=== PATIENT | male | born 1935 | race Caucasian/White ===

== ENCOUNTER → 2017-07-09 09:40 | Outpatient (CLI) | payer MEDICARE, OTHER, SELFPAY ==
[2017-07-09 10:59] LABS: PSA,Total - Annual Screen 1.31 ng/mL (0.00-4.00)
== END ==
PROVIDERS: Family Provider Family Medicine; PCP Family Medicine; Visit Provider Urology
DX: Z12.5 Encounter for screening for malignant neoplasm of prostate (principal)
CPT/HCPCS: 36415; 84153; G0103

== ENCOUNTER → 2018-02-20 12:51 | Outpatient (CLI) | payer MEDICARE, OTHER, SELFPAY ==
[2018-01-27 12:35] VITALS: BMI 28.3
--- NOTE | 2018-02-20 14:22 | PFTCOMP_ITS ---
COMPLETE PULMONARY FUNCTION TEST INTERPRETATION Brief HPI: Patient is an 82 year old male, currently under the care of myself, who presents to [facility] for complete pulmonary function tests secondary to diagnosis of cough. Respiratory therapist reports good effort and reproducible results. Interpretation: Forced expiration spirometry shows a mild large airways obstructive ventilatory defect with an FEV1 of 85% predicted. There is no significant bronchodilator response by strict ATS criteria. Spirograms are of good quality and plateau slowly, indicating slowly emptying areas of the lungs. The respiratory flow volume loop shows decreased expiratory flow rates at all lung volumes consistent with airway obstruction. Lung volumes by body plethysmography show a normal total lung capacity at 7.26 L, 103% predicted. All other lung volumes are within normal limits. Diffusion capacity by carbon monoxide is normal at 104% predicted. The airway resistance is normal. No previous pulmonary function tests were available for review. Impression: Irreversible mild large airways obstructive ventilatory defect with preserved diffusion capacity
--- OUTSIDE RECORDS SUMMARY | 2018-04-08 08:22 | XMS RPT_ITS ---
:1935 External Reference #:[id number] Author Organization OHIP Care Team Providers Name Role Phone FACUNDO DOBBINS (PA) Referring Unavailable AKUA ZEPEDA (ROOFER HELPER) Attending Unavailable FACUNDO DOBBINS (PA) Referring Unavailable VENECIA BAPTISTE (PT) Attending Unavailable SUMA ANTONIO Referring Unavailable SUMA ANTONIO Attending Unavailable SUMA ANTONIO Referring Unavailable SUMA ANTONIO Attending Unavailable SUMA ANTONIO Referring Unavailable Jay Fitch Attending Unavailable Jay Fitch Referring Unavailable Jay Fitch Attending Unavailable Suma Antonio Referring Unavailable Milo Lackey Attending Unavailable Milo Lackey Referring Unavailable Suma Antonio Primary Care Unavailable Jay Fitch Attending Unavailable Suma Antonio Referring Unavailable Jay Fitch Attending Unavailable Jay Fitch Referring Unavailable Suma Antonio Primary Care Unavailable PROBLEMS PROBLEMS DATE TYPE CONDITION / CODE ATTENDING STATUS SOURCE 03/27/2018 Unknown R05 - Cough / Jay Fitch Active [place] [facility] 01/28/2018 Active Encounter for NA Active [facility] medical Repository examination without abnormal findings / Z00.00(ICD-10) 12/07/2017 Active Encounter for NA Active [facility] immunization / [facility] Z23(ICD-10) Repository 06/07/2017 Active Unknown / NA Active [facility] UNK(Unknown) [facility] Repository PROCEDURES PROCEDURES No Procedure Records FoundRESULTS RESULTS PULMONARY VISIT REPORT Observed: 03/27/2018 Status: F Source: [place] 3:[address] [facility] REPOSITORY [facility] [place] [address] [place] [address] OFFICE VISIT Date of Service: 03/27/18 MR#: [id number] Acct: [id number] Name: EARL SINHA Rep #: [id number] : 1935 Provider: Jay Fitch MD Age/Sex: 82/M Location: [facility].PMW Status: Signed Assessment AND Plan Problems 1. Cough R05 Plan Patient's pulmonary function test did not qualify for asthma by strict ATS criteria, some improvement in small airways was noted. Clinical suspicion for a mild intermittent asthma leading to symptomatology. After review of the risks, benefits and alternatives, patient has elected to use conservative therapy. Did offer albuterol as needed, but patient was not interested. Will obtain a complete PFT in 1 year to ensure stability. Patient will call with signs or symptoms of exacerbation. PFT prior to next visit. Call with signs or symptoms of exacerbation. Orders Orders: HPI 2 M FU: Chief Complaint: Follow-up test results Details: Patient is an 82-year-old male, currently under the care of Dr. Antonio, who presents for evaluation secondary to recent test results. Since last visit, patient denies any ER visits, hospitalizations or prednisone burst. Patient did complete his prednisone that was prescribed at the previous visit and did not need to be reinitiated. Overall, patient feels subjectively improved compared to previous. Patient does report some sinus congestion over the last week or 2 that was responsive with Flonase therapy. Patient has decreased to 1 puff each nostril in the morning. Patient has noted some rhinorrhea in the evening, but this is not associated with cough. Patient denies any chest pain, abdominal pain, nausea or vomiting. Patient has not had any unintentional weight loss. Patient does not believe that he is experiencing any worsening dyspnea on exertion. Patient denies any difficulty with lying flat. Testing personally reviewed with the patient Complete PFT (02/20/2018): Irreversible mild large airways obstructive ventilatory defect (FVC 89%, FEV1 81%, TLC 103%, DLCO 104%) Intake Vital Signs03/27/18 Height 6 ft 3 in 03/27/18 Weight: 102.965 kg Intake Visit Reasons: 2 M FU Accompanied by: Self Allergies ipratropium Adverse Reaction (Mild, Verified 01/27/18 12:39) Hives Medications Aspirin 325 mg PO DAILY 04/16/13 [History Confirmed 01/24/18] Cholecalciferol (Vitamin D3) [Vitamin D3] 1,000 unit PO DAILY 04/16/13 [History Confirmed 01/24/18] Multivitamins,Therapeutic [Multivitamin] 1 tab PO DAILY 04/16/13 [History Confirmed 01/24/18] prednisone 10 mg tablet 10 mg PO .COMPLEX 01/27/18 [History Confirmed 01/27/18] [facility] Medical History Kidney stones (Acute) Lumbago (Acute) BPH (benign prostatic hyperplasia) (Chronic) Bladder neck obstruction (Chronic) Diverticulosis of colon (Chronic) Migraine without aura (Chronic) Obesity (Chronic) Osteoarthritis (Chronic) 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 (Chronic) Premature atrial contraction (Chronic) Restless leg syndrome (Chronic) Surgical History H/O adenoidectomy (Resolved) H/O arthroscopy of right knee (Resolved) H/O colonoscopy (Resolved) History of carpal tunnel release (Resolved) History of tonsillectomy (Resolved) History of total left hip replacement (Resolved) Right wrist fusion (Resolved) S/P TURP (Resolved) Family History Sister Breast cancer Social History Smoking Status: Never smoker alcohol intake: current alcohol intake frequency: 0-2 drinks per day Alcohol type: beer substance use type: does not use Review of Systems Const CONSTITUTIONAL: Negative anorexia, body ache, chills, daytime sleepiness, fever(s), night sweats, oral thrush, stops breathing during sleep, weight loss, sleeping in chair, fatigue, weight loss, weight gain, frequent colds, seasonal allergies, other, headache(s) or orthopnea EETM Ear Nose Throat Mouth: Positive hearing normal, nasal discharge and post nasal drip; negative hard of hearing, hoarseness, dry mouth in morning, change in vision, itchy eyes, eye pain, swallowing Difficulty, ear pain, nose bleed, headache(s), mouth pain, nasal congestion, sinus pain, sinus pressure, sore throat or other Cardio Cardiovascular: Negative chest pain, chest pain at rest, chest pain with activity, irregular heart rhythm, edema, shortness of breath when lying down, palpitations, murmur or other Resp Respiratory: Positive as per HPI; negative shortness of breath, pain with cough, wheezing, chest congestion, cough, chest tightness, pain on inspiration, inhalers, increase use of rescue inhalers, snoring, apnea or other Gastro Gastrointestional: Negative bloody stools, change in appetite, difficulty swallowing, reflux, hematemesis, melena stool, loose stool, constipation or other Genitourinary: Negative blood in urine, nocturia, pain with urination or other Musc Musculoskeletal: Negative body pain, back pain, neck pain or other Skin/Breast Skin/Breast: Negative dry skin, itching, rash, unusual bruising, breast lump or other Neuro Neurological: Negative restless legs, confusion, weakness or other Psych Psychocological: Negative abnormal sleep pattern, anxiety, thoughts of hurting self/others, hopelessness or other Lymph Lymphatic: Negative easy bleeding, easy bruising, swollen lymph nodes or other Exam Const Constitutional: Positive conversant, cooperative, in no acute respiratory distress, healthy appearing, well developed, well nourished and good hygiene; negative frail appearing, appears older than stated age, smells of smoke or wearing supplemental oxygen Head Head: Positive normocephalic and atraumatic; negative cyanosis of lips/distal nose, frontal sinus tenderness or maxillary sinus tenderness Eyes Eye: Positive clear conjunctiva; negative nystagmus, scleral abnormality or cataract present Ears Ear: Positive hearing normal and external ears normal; negative hard of hearing Nose Nose: Positive external nose normal, septum normal and clear nasal discharge; negative epistaxis or nasal polyp Mouth Mouth: Positive post nasal drip, oral mucosae normal, no lesions, oral thrush present and posterior oropharynx is adequate; negative malodorous breath Mallampati Score: II: Mallampati Score Neck Neck: Positive normal visual inspection, full ROM and trachea midline; negative lymphadenopathy or JVD Chest Wall Chest: Positive normal inspection of the chest and symmetric chest movement; negative crepitus or tenderness Resp lung sounds: Positive clear to auscultation, good air exchange, normal expiratory time and normal respiratory effort; negative wheezes, rhonchi, rales, use of accessory muscles, wheeze present on forced exhalation or dullness to percussion Cardio Cardiac: Positive regular rate, regular rhythm, S1 normal and S2 normal; negative murmur, rub or gallop GI GI: Positive normal to inspection and normal bowel sounds; negative distended, ascites or epigastric tenderness Genitourinary: Positive deferred Musc Musculoskeletal: Positive steady gait; negative using an assistive device for ambulation, kyphosis or scoliosis Skin Pulmonary Skin Exam: Positive intact; negative rash, lesion, ulcers, erythema or dermal atrophy Pulses Pulse: Yes radial pulses present Extremities Extremities: Yes capillary refill normal, No clubbing, No cyanosis, No edema Neuro Neurologic: Yes conversant Lymph Lymphatic: No lymphadenopathy Psych Appearance: Positive grossly normal Mental Status: Positive mental status grossly normal Mood: Positive congruent mood Affect: Positive normal affect Coding Level of Care Code Off vis,est,level 3 Diagnoses Cough R05 03/27/18 1531 <Electronically signed by Jay Fitch MD> Date Jay Fitch MD Cosigner Signature: Date (if applicable) CC: Suma Antonio MD PULMONARY FUNCTION Observed: 02/21/2018 Status: F Source: [place] REPORT COMP 6:[address] [facility] REPOSITORY [facility] Pulmonary Services/Neurology [address] [place] [address] MR#: [id number] Acct: [id number] Name: NAVYALLUVIA DORADOMARIYA Hyde Rep #: [id number] : 1935 82 From: Jay Fitch MD Referring Dr: Jay Fitch MD Status: REG CLI Ordering Dr: Date: Location: [facility] Sex: M C COMPLETE PULMONARY FUNCTION TEST INTERPRETATION Brief HPI: Patient is an 82 year old male, currently under the care of myself, who presents to [facility] for complete pulmonary function tests secondary to diagnosis of cough. Respiratory therapist reports good effort and reproducible results. Interpretation: Forced expiration spirometry shows a mild large airways obstructive ventilatory defect with an FEV1 of 85% predicted. There is no significant bronchodilator response by strict ATS criteria. Spirograms are of good quality and plateau slowly, indicating slowly emptying areas of the lungs. The respiratory flow volume loop shows decreased expiratory flow rates at all lung volumes consistent with airway obstruction. Lung volumes by body plethysmography show a normal total lung capacity at 7.26 L, 103% predicted. All other lung volumes are within normal limits. Diffusion capacity by carbon monoxide is normal at 104% predicted. The airway resistance is normal. No previous pulmonary function tests were available for review. Impression: Irreversible mild large airways obstructive ventilatory defect with preserved diffusion capacity 02/21/18 0602 <Electronically signed by Jay Fitch MD> Date Jay Fitch MD CC: Jay Fitch MD; Suma Antonio MD Date Dictated: 02/20/18 1420 Date Transcribed: 02/20/181419 Family Resource Management Professor: SNEHA Signed PROGRESS Observed: 02/04/2018 Status: COMPLETED Source: [place] 2:04 PM [facility] REPOSITORY [facility] ID: [id number] Author: Suma Antonio Service: (none) Author Type: Physician Type: Progress Notes Filed: 02/04/2018 3:05 PM Note Text: Medical B eligibilty date 11/09/2000 Date of last exam 01/27/15 Pt presents for Medicare Wellness exam and additional office visit for multiple concerns. PAST MEDICAL HISTORY Diagnosis Date - Bladder neck obstruction - BPH (benign prostatic hyperplasia) Seeing Dr. 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 Hernandez - PAST SURGICAL HISTORY OF Left 07/31/15 left total hip - REMOVAL ADENOIDS,PRIMARY,<12 Y/O Adenoidectomy - REMOVAL OF TONSILS,<12 Y/O Tonsillectomy - TRANSURETHRAL ELEC-SURG PROSTATECTOM 05/2005 TURP Ipratropium [place] Current Outpatient Prescriptions: Cholecalciferol, Vitamin D3, 1,000 unit cap Take 1 capsule by mouth once daily. Oeeadzlvlnfyn-Efuxfayo-Sduqkg (CENTRUM SILVER) tab Take 1 tablet by mouth once daily. aspirin, buffered (ASCRIPTIN) 325 mg buffered tablet Take 1 tablet by mouth once daily. (Patient taking differently: Take 2 tablets by mouth once daily. ) No current facility-administered medications for this visit. Medications reviewed: Yes FAMILY HISTORY Problem Relation Age of Onset - Breast Cancer Sister Social History Marital status: Spouse name: Abby Years of education: Number of children: 2 Occupational History Occupation Employer Comment [employer] Social History Main Topics Smoking status: Never Smoker Smokeless tobacco: Never Used Alcohol use: Yes Comment: 1 beer per day Drug use: No Earl exercises 2-3 times per week at [facility] [employer]. He walks on the treadmill and uses machines for about 1 hour. He tries to eat fairly healthy. Tries to minimize fat intake by drinking low fat milk, lean meats such as salmon. States his is a good cook and has a vegetables daily. Admits to having a sweet tooth. List of current specialists seen: Pulmonary - Dr. Fitch Urology - Dr. Hernandez, but he's retired, now seeing Dr. Lackey. End of Live Planning discussed including patients advanced directive wishes: Yes I am willing to follow Earl advanced directives. Depression screen He in the past two weeks denies having felt down, depressed, hopeless or with little interest or pleasure in doing things. Functional Ability/Safety Screen 1. Was the patient's timed Up and Go test unsteady or longer than 30 seconds? No 2. Does the patient need help with the phone, transportation, shopping,preparing meals, housework, laundry, medications or managing money? No 3. Does your home have rungs in the hallway, lack of grab bars in the bathroom, lack of handrails on the stairs or have poor lighting? No rugs in the hallway and no grab bars. Has 1 handrail at each stairway and good ligthing at home. Hearing Evaluation: normal PHYSICAL EXAM BP 134/70 (BP Site: Left Arm, BP Position: Sitting, BP Cuff Size: Regular Adult) Pulse 82 Resp 16 Ht 185.4 cm (6' 1) Wt 103.3 kg (227 lb 12.8 oz) BMI 30.05 kg/m? Visual acuity: OD: 20/30 OS: 20/ 30 OU: 20/25 Color normal. Exam completed with glasses. General Appearance: Lung: Heart: Derm: Spots on upper stomach, seborrheic keratosis. Normal and benign in appearance. Feet: Shoes and socks removed, No deformities, ulcers, calluses, normal distal pulses and sensitive to 10 gm monofilament. Some diminished sensation in bilateral feet on exam. ASSESMENT/PLAN: 82 year old male The following prevention plan was discussed during the office visit and provided to the patient: - Glaucoma screening - Lipid panel - Fasting Blood sugar ASSESSMENT/PLAN: 1. Medicare annual wellness visit, subsequent - ICD9: V70.0, ICD10: Z00.00 (primary diagnosis) - Recommended regular aerobic exercise. - Follow up for annual exam in one year. Suma Antonio MD Chief Complaint Patient presents with: Medicare Wellness Exam HPI Earl Sinha is a 82 year old male who presents here today for evaluation of multiple cocnerns Cardio - Denies any chest pain, sob or dizziness. Feels that his energy level is decreased, over the last 10 years. Wants to know if something is the cause or is this related to just not being as active with exercise. GI - Denies any stomach or bowel issues. Urinary - Follows with [facility] Urologist every [address] Hernandez but now retired and changing over to Dr. Lackey. Back pain - Chronic, intermittent sciatica pain. Seen recently due to flare up and started on Prednisone which has been completed. Takes Aspirin 325 mg 2 tabs po once daily. Daughter has recommended to switch to Advil, wants advice on which is better for pain control. Neuropathy - Diagnosed by Dr. Ott with an EMG completed in 09/2014 that showed neuropathy. Would like to know if there is something he could take to help reduce symptoms or if he's lacking in something such as B-12. Recommendation on OTC medications. Migraines - Chronic history of migraines but seem to be increasing. Has aura's with migraines, denies much head pain but feels like he's been run over by a truck. When should one start using medications. On average getting 1-2 per week. Uses Aspirin 325 mg 2 tabs once daily. Edema - Bilateral ankle swelling. Should he start medication or do as Dr. Ott said use compression stockings but was not very compliant with using them. Pulmonary - Ongoing cough/bronchitis for the last few months. Pt was referred to see Pulmonary, Dr. 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 Pt has an upcoming PFT test with Dr. Fitch. Pt noting today that he believes his father had asthma issues. Constant nasal drainage, may use Flonase to see if this helps. Derm - Would like a referral to a Assessment Manager for a growth on his chest. Past medical history, appointments, medications, allergies reviewed. Previous Medical History PAST MEDICAL HISTORY Diagnosis Date - Bladder neck obstruction - BPH (benign prostatic hyperplasia) Seeing Dr. Hernandez - Diverticulosis of colon (without mention of hemorrhage) - Kidney stones - Lumbago - Migraine without aura, without mention of intractable migraine without mention of status migrainosus 10/10/2007 - Obesity - Osteoarthritis - PAC (premature atrial contraction) - 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 (HCC) - RLS (restless legs syndrome) Previous Surgical History PAST SURGICAL HISTORY Procedure Laterality Date - CARPAL TUNNEL RIGHT WRIST Right - COLONOSCOP W/ OR W/O [facility] SPEC 05/1998 flex sigmoidoscopy - COLONOSCOP W/ OR W/O [facility] SPEC 11/27/2011 Colonoscopy - KNEE SCOPE,DIAGNOSTIC Right 11/2005 Arthroscopy, knee - PAST SURGICAL HISTORY OF right wrist fusion - PAST SURGICAL HISTORY OF 04/17/13 TURP; Dr. Hernandez - PAST SURGICAL HISTORY OF Left 07/31/15 left total hip - REMOVAL ADENOIDS,PRIMARY,<12 Y/O Adenoidectomy - REMOVAL OF TONSILS,<12 Y/O Tonsillectomy - TRANSURETHRAL ELEC-SURG PROSTATECTOM 05/2005 TURP Family History FAMILY HISTORY Problem Relation Age of Onset - Breast Cancer Sister Patient Allergies ALLERGIES Allergen Reactions - Ipratropium [place] Hives Current Medications Current Outpatient Prescriptions on File Prior to Visit: Cholecalciferol, Vitamin D3, 1,000 unit cap Take 1 capsule by mouth once daily. Czvtvgharexfs-Gizevyjb-Asroky (CENTRUM SILVER) tab Take 1 tablet by mouth once daily. aspirin, buffered (ASCRIPTIN) 325 mg buffered tablet Take 1 tablet by mouth once daily. (Patient taking differently: Take 2 tablets by mouth once daily. ) No current facility-administered medications on file prior to visit. Social History Social History Marital status: Spouse name: Abby Years of education: Number of children: 2 Occupational History Occupation Employer Comment [employer] Social History Main Topics Smoking status: Never Smoker Smokeless tobacco: Never Used Alcohol use: Yes Comment: 1 beer per day Drug use: No EXAM: BP 134/70 (BP Site: Left Arm, BP Position: Sitting, BP Cuff Size: Regular Adult) Pulse 82 Resp 16 Ht 185.4 cm (6' 1) Wt 103.3 kg (227 lb 12.8 oz) BMI 30.05 kg/m? General Appearance: Well appearing, alert, in no acute distress, well-hydrated, well nourished.. Skin: two small arminda keratosis on chest. Lungs: lungs clear to auscultation. No wheezing, rhonchi, rales. Heart: occ irregular beats; consistent with history of PACs. Ext: feet sensitive to monofilament testing. Health Maintenance List DIABETES SCREEN due on 01/28/2021 LIPID SCREEN due on 01/28/2023 DTAP,TDAP,TD(3 - Tdap) due on 01/09/2024 ADULT PREVNAR-13 Completed INFLUENZA Completed PNEUMOVAX AGE 65 AND OVER WITH 5YR LOOKBACK Completed Data reviewed Appointment on 01/28/2018 Component Date Value - Cholesterol, Total 01/28/2018 122 - Triglyceride 01/28/2018 63 - HDL Cholesterol 01/28/2018 59 - LDL Cholesterol 01/28/2018 50 - Non HDL Cholesterol 01/28/2018 63 - Fasting Time 01/28/2018 12 - VLDL Cholesterol 01/28/2018 13 - TC:HDL Ratio 01/28/2018 2.07 - LDL:HDL Ratio 01/28/2018 0.85 - Protein, Total 01/28/2018 6.4 - Albumin 01/28/2018 4.0 - Calcium 01/28/2018 9.1 - Bilirubin, Total 01/28/2018 0.5 - Alkaline Phosphatase 01/28/2018 58 - AST 01/28/2018 25 - Glucose 01/28/2018 90 - BUN 01/28/2018 19 - Creatinine 01/28/2018 1.12 - Sodium 01/28/2018 141 - Potassium 01/28/2018 3.9 - Chloride 01/28/2018 103 - CO2 01/28/2018 26 - Anion Gap 01/28/2018 12 - ALT 01/28/2018 29 - eGFR- 01/28/2018 >60 - eGFR-All Other Races 01/28/2018 >60 - CRP 01/28/2018 0.1 ASSESSMENT/PLAN: 1. . Idiopathic peripheral neuropathy - ICD9: 356.9, ICD10: G60.9 May try OTC vit E and B12 2. Chronic midline low back pain with sciatica, sciatica laterality unspecified - ICD9: 724.2, 724.3, 338.29, ICD10: M54.40, G89.29 Chronic low back pain Symptomatic treatment 3. Bladder neck obstruction - ICD9: 596.0, ICD10: N32.0 Follow with Urology 4. Migraine with aura, not intractable, without status migrainosus - ICD9: 346.00, ICD10: G43.109 Continue prn NSAID of choice 5. Seborrheic keratosis - ICD9: 702.19, ICD10: L82.1 - CONSULT TO DERMATOLOGY 6. Bilateral leg edema - ICD9: 782.3, ICD10: R60.0 Reassurance Follow up in 1 year Suma Antonio MD CNOV Observed: 02/04/2018 Status: COMPLETED Source: [place] 2:00 PM [facility] REPOSITORY Office Visit (FAMPWS) EARL SINHA ([id number]) 1935 M Date Time Provider Department 02/04/18 2:00 PM SUMA ANTONIO During your visit today, we recorded the following information about you: Pulse Respiration Blood pressure Weight 82/minute 16/minute 134/70 103.3 kg Height 1.854 m Suma Antonio MD 02/04/2018 3:05 PM Signed Medical B eligibilty date 11/09/2000 Date of last exam 01/27/15 Pt presents for Medicare Wellness exam and additional office visit for multiple concerns. PAST MEDICAL HISTORY Diagnosis Date - Bladder neck obstruction - BPH (benign prostatic hyperplasia) Seeing Dr. 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 Hernandez - PAST SURGICAL HISTORY OF Left 07/31/15 left total hip - REMOVAL ADENOIDS,PRIMARY,<12 Y/O Adenoidectomy - REMOVAL OF TONSILS,<12 Y/O Tonsillectomy - TRANSURETHRAL ELEC-SURG PROSTATECTOM 05/2005 TURP Ipratropium [place] Current Outpatient Prescriptions: Cholecalciferol, Vitamin D3, 1,000 unit cap Take 1 capsule by mouth once daily. Wyjfbxsofeadj-Rhenpzsq-Oxjniy (CENTRUM SILVER) tab Take 1 tablet by mouth once daily. aspirin, buffered (ASCRIPTIN) 325 mg buffered tablet Take 1 tablet by mouth once daily. (Patient taking differently: Take 2 tablets by mouth once daily. ) No current facility-administered medications for this visit. Medications reviewed: Yes FAMILY HISTORY Problem Relation Age of Onset - Breast Cancer Sister Social History Marital status: Spouse name: Abby Years of education: Number of children: 2 Occupational History Occupation Employer Comment [employer] Social History Main Topics Smoking status: Never Smoker Smokeless tobacco: Never Used Alcohol use: Yes Comment: 1 beer per day Drug use: No Earl exercises 2-3 times per week at [facility] [employer]. He walks on the treadmill and uses machines for about 1 hour. He tries to eat fairly healthy. Tries to minimize fat intake by drinking low fat milk, lean meats such as salmon. States his is a good cook and has a vegetables daily. Admits to having a sweet tooth. List of current specialists seen: Pulmonary - Dr. Fitch Urology - Dr. Hernandez, but he's retired, now seeing Dr. Lackey. End of Live Planning discussed including patients advanced directive wishes: Yes I am willing to follow Earl advanced directives. Depression screen He in the past two weeks denies having felt down, depressed, hopeless or with little interest or pleasure in doing things. Functional Ability/Safety Screen 1. Was the patient's timed Up and Go test unsteady or longer than 30 seconds? No 2. Does the patient need help with the phone, transportation, shopping,preparing meals, housework, laundry, medications or managing money? No 3. Does your home have rungs in the hallway, lack of grab bars in the bathroom, lack of handrails on the stairs or have poor lighting? No rugs in the hallway and no grab bars. Has 1 handrail at each stairway and good ligthing at home. Hearing Evaluation: normal PHYSICAL EXAM BP 134/70 (BP Site: Left Arm, BP Position: Sitting, BP Cuff Size: Regular Adult) Pulse 82 Resp 16 Ht 185.4 cm (6' 1) Wt 103.3 kg (227 lb 12.8 oz) BMI 30.05 kg/m? Visual acuity: OD: 20/30 OS: 20/ 30 OU: 20/25 Color normal. Exam completed with glasses. General Appearance: Lung: Heart: Derm: Spots on upper stomach, seborrheic keratosis. Normal and benign in appearance. Feet: Shoes and socks removed, No deformities, ulcers, calluses, normal distal pulses and sensitive to 10 gm monofilament. Some diminished sensation in bilateral feet on exam. ASSESMENT/PLAN: 82 year old male The following prevention plan was discussed during the office visit and provided to the patient: - Glaucoma screening - Lipid panel - Fasting Blood sugar ASSESSMENT/PLAN: 1. Medicare annual wellness visit, subsequent - ICD9: V70.0, ICD10: Z00.00 (primary diagnosis) - Recommended regular aerobic exercise. - Follow up for annual exam in one year. Suma Antonio MD Chief Complaint Patient presents with: Medicare Wellness Exam HPI Earl Sinha is a 82 year old male who presents here today for evaluation of multiple cocnerns Cardio - Denies any chest pain, sob or dizziness. Feels that his energy level is decreased, over the last 10 years. Wants to know if something is the cause or is this related to just not being as active with exercise. GI - Denies any stomach or bowel issues. Urinary - Follows with [facility] Urologist every [address] Hernandez but now retired and changing over to Dr. Lackey. Back pain - Chronic, intermittent sciatica pain. Seen recently due to flare up and started on Prednisone which has been completed. Takes Aspirin 325 mg 2 tabs po once daily. Daughter has recommended to switch to Advil, wants advice on which is better for pain control. Neuropathy - Diagnosed by Dr. Ott with an EMG completed in 09/2014 that showed neuropathy. Would like to know if there is something he could take to help reduce symptoms or if he's lacking in something such as B-12. Recommendation on OTC medications. Migraines - Chronic history of migraines but seem to be increasing. Has aura's with migraines, denies much head pain but feels like he's been run over by a truck. When should one start using medications. On average getting 1-2 per week. Uses Aspirin 325 mg 2 tabs once daily. Edema - Bilateral ankle swelling. Should he start medication or do as Dr. Ott said use compression stockings but was not very compliant with using them. Pulmonary - Ongoing cough/bronchitis for the last few months. Pt was referred to see Pulmonary, Dr. 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 Pt has an upcoming PFT test with Dr. Fitch. Pt noting today that he believes his father had asthma issues. Constant nasal drainage, may use Flonase to see if this helps. Derm - Would like a referral to a Assessment Manager for a growth on his chest. Past medical history, appointments, medications, allergies reviewed. Previous Medical History PAST MEDICAL HISTORY Diagnosis Date - Bladder neck obstruction - BPH (benign prostatic hyperplasia) Seeing Dr. Hernandez - Diverticulosis of colon (without mention of hemorrhage) - Kidney stones - Lumbago - Migraine without aura, without mention of intractable migraine without mention of status migrainosus 10/10/2007 - Obesity - Osteoarthritis - PAC (premature atrial contraction) - 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 (HCC) - RLS (restless legs syndrome) Previous Surgical History PAST SURGICAL HISTORY Procedure Laterality Date - CARPAL TUNNEL RIGHT WRIST Right - COLONOSCOP W/ OR W/O [facility] SPEC 05/1998 flex sigmoidoscopy - COLONOSCOP W/ OR W/O [facility] SPEC 11/27/2011 Colonoscopy - KNEE SCOPE,DIAGNOSTIC Right 11/2005 Arthroscopy, knee - PAST SURGICAL HISTORY OF right wrist fusion - PAST SURGICAL HISTORY OF 04/17/13 TURP; Dr. Hernandez - PAST SURGICAL HISTORY OF Left 07/31/15 left total hip - REMOVAL ADENOIDS,PRIMARY,<12 Y/O Adenoidectomy - REMOVAL OF TONSILS,<12 Y/O Tonsillectomy - TRANSURETHRAL ELEC-SURG PROSTATECTOM 05/2005 TURP Family History FAMILY HISTORY Problem Relation Age of Onset - Breast Cancer Sister Patient Allergies ALLERGIES Allergen Reactions - Ipratropium [place] Hives Current Medications Current Outpatient Prescriptions on File Prior to Visit: Cholecalciferol, Vitamin D3, 1,000 unit cap Take 1 capsule by mouth once daily. Aqmmwpseqcrop-Vnhnidga-Bibjld (CENTRUM SILVER) tab Take 1 tablet by mouth once daily. aspirin, buffered (ASCRIPTIN) 325 mg buffered tablet Take 1 tablet by mouth once daily. (Patient taking differently: Take 2 tablets by mouth once daily. ) No current facility-administered medications on file prior to visit. 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 General Appearance: Well appearing, alert, in no acute distress, well-hydrated, well nourished.. Skin: two small arminda keratosis on chest. Lungs: lungs clear to auscultation. No wheezing, rhonchi, rales. Heart: occ irregular beats; consistent with history of PACs. Ext: feet sensitive to monofilament testing. Health Maintenance List DIABETES SCREEN due on 01/28/2021 LIPID SCREEN due on 01/28/2023 DTAP,TDAP,TD(3 - Tdap) due on 01/09/2024 ADULT PREVNAR-13 Completed INFLUENZA Completed PNEUMOVAX AGE 65 AND OVER WITH 5YR LOOKBACK Completed Data reviewed Appointment on 01/28/2018 Component Date Value - Cholesterol, Total 01/28/2018 122 - Triglyceride 01/28/2018 63 - HDL Cholesterol 01/28/2018 59 - LDL Cholesterol 01/28/2018 50 - Non HDL Cholesterol 01/28/2018 63 - Fasting Time 01/28/2018 12 - VLDL Cholesterol 01/28/2018 13 - TC:HDL Ratio 01/28/2018 2.07 - LDL:HDL Ratio 01/28/2018 0.85 - Protein, Total 01/28/2018 6.4 - Albumin 01/28/2018 4.0 - Calcium 01/28/2018 9.1 - Bilirubin, Total 01/28/2018 0.5 - Alkaline Phosphatase 01/28/2018 58 - AST 01/28/2018 25 - Glucose 01/28/2018 90 - BUN 01/28/2018 19 - Creatinine 01/28/2018 1.12 - Sodium 01/28/2018 141 - Potassium 01/28/2018 3.9 - Chloride 01/28/2018 103 - CO2 01/28/2018 26 - Anion Gap 01/28/2018 12 - ALT 01/28/2018 29 - eGFR- 01/28/2018 >60 - eGFR-All Other Races 01/28/2018 >60 - CRP 01/28/2018 0.1 ASSESSMENT/PLAN: 1. . Idiopathic peripheral neuropathy - ICD9: 356.9, ICD10: G60.9 May try OTC vit E and B12 2. Chronic midline low back pain with sciatica, sciatica laterality unspecified - ICD9: 724.2, 724.3, 338.29, ICD10: M54.40, G89.29 Chronic low back pain Symptomatic treatment 3. Bladder neck obstruction - ICD9: 596.0, ICD10: N32.0 Follow with Urology 4. Migraine with aura, not intractable, without status migrainosus - ICD9: 346.00, ICD10: G43.109 Continue prn NSAID of choice 5. Seborrheic keratosis - ICD9: 702.19, ICD10: L82.1 - CONSULT TO DERMATOLOGY 6. Bilateral leg edema - ICD9: 782.3, ICD10: R60.0 Reassurance Follow up in 1 year MD Nessa Thurman Ma 02/04/2018 2:[address] Omkar Winter's office to setup appointment. We will fax over consult and OV Notes. Dr. Omkar Winter [address] [place] [id number] P#: [phone] F#: [phone] Nessa Pedroza Ma 02/05/2018 9:42 AM Signed Referral to Dr. Omkar Winter has been faxed with all info. Pt given number to call and setup appt. Nessa Pedroza Ma Referring Provider: SUMA ANTONIO [[id number]] Allergies As of Date: 02/04/2018 Noted Allergy Reaction IPRATROPIUM BROMIDE 09/08/2015 4 - Hives Date Reviewed: 02/04/2018 Reviewed by: Nessa Pedroza Ma - Fully Assessed Reason for Visit: Medicare Wellness Exam [4060] Primary Visit Diagnosis:Medicare annual wellness visit, subsequent [Z00.00] Other Visit Diagnoses:Idiopathic peripheral neuropathy [G60.9] Chronic midline low back pain with sciatica, sciatica laterality unspecified [M54.40, G89.29] Bladder neck obstruction [N32.0] Migraine with aura, not intractable, without status migrainosus [G43.109] Seborrheic keratosis [L82.1] Bilateral leg edema [R60.0] Order(s):CONSULT TO DERMATOLOGY [6095] Order #: [id number]: 1 Prescriptions as of 02/04/2018 Sig: CHOLECALCIFEROL (VITAMIN D3) * Take 1 capsule by mouth once * EWFKTWITKFRP-WLQLCTJL-FFIOCD * Take 1 tablet by mouth once d* * ASPIRIN, BUFFERED 325 MG TABL* Take 1 tablet by mouth once d* Patient taking differently: Take 2 tablets by mouth once * Problem List As Of Date 02/04/2018 Noted Resolved HYPERTONICITY OF BLADDER [N31.8] INVALID FOR* BLADDER NECK OBSTRUCTION [N32.0] INVALID FOR* HYPERTROPHY PROSTATE WITH OBST [N40.1] INVALID FOR* Actinic keratosis [L57.0] INVALID FOR*02/04/2018 Polyneuropathy in other diseases classified els* 01/08/2014 COMMON MIGRAINE W/O MENTN INTRACT [G43.009] INVALID FOR* SPRAIN NOS [T14.8XXA] INVALID FOR*12/04/2007 Blood in stool [K92.1] INVALID FOR*06/11/2016 Orthostatic hypotension [I95.1] INVALID FOR*02/04/2018 Benign neoplasm of skin of trunk, except scrotu*INVALID FOR*02/04/2018 Capsulitis [M77.9] INVALID FOR*02/04/2018 Congenital Pes Planus [Q66.50] INVALID FOR* Renal colic [N23] INVALID FOR*02/04/2018 Hematuria, gross [R31.0] INVALID FOR*06/11/2016 Calculus of Kidney [N20.0] INVALID FOR* Chronic low back pain without sciatica [M54.5, *INVALID FOR* Degeneration of Lumbar or Lumbosacral Intervert*INVALID FOR* Hyperlipemia [E78.5] INVALID FOR*02/04/2018 Restless legs syndrome [G25.81] INVALID FOR*01/08/2014 Osteoarthritis [M19.90] INVALID FOR* Nocturia [R35.1] INVALID FOR* BPH (benign prostatic hypertrophy) [N40.0] INVALID FOR*06/11/2016 Arthritis of right knee [M17.11] INVALID FOR* Medicare annual wellness visit, subsequent [Z00*INVALID FOR*06/11/2016 Hamstring tightness [M62.89] INVALID FOR*01/08/2014 RLS (restless legs syndrome) [G25.81] INVALID FOR* Neuropathy, peripheral (HCC) [G62.9] INVALID FOR* RLQ abdominal pain [R10.31] INVALID FOR*06/11/2016 Obesity [E66.9] 02/19/2017 PAC (premature atrial contraction) [I49.1] Other instructions from your clinician: Call Dr. Omkar Winter's office to setup appointment. We will fax over consult and OV Notes. Dr[place] [address] P#: [phone] F#: [phone] Visit Notes: >> Nessa Pedroza Ma SatFeb 05, 2018 9:41 AM Status: Signed Referral to Dr. Omkar Winter has been faxed with all info. Pt given number to call and setup appt. Nessa Pedroza Ma Medications Discontinued During This Encounter predniSONE (DELTASONE) 10 mg tablet 21 t* 0 01/23/2018 02/04/2018 Sig: Take 4 tabs daily for 3 days, then 2 tabs daily for 3 days, then 1 tab daily for 3 days with food. Disc: Course of therapy completed Disposition: Return in about 1 year (around 02/04/2019), or if symptoms worsen or fail to improve. Follow-up and Disposition History Recorded Encounter Status:Closed by SUMA ANTONIO MD on 02/04/18 C-REACTIVE PROTEIN Collected: 01/28/2018 Status: F Source: [place] 9:56 AM [facility] REPOSITORY TYPE CODE TESTS RESULT OUT OF REFERENCE UNITS RANGE LAB CRP <0.9 mg/dL C-Reactive 0.1 Protein Performed By: #### CRP #### [facility] [address] [place], [place] [address] COMP METABOLIC PANEL Collected: 01/28/2018 Status: F Source: [place] 9:56 AM [facility] REPOSITORY TYPE CODE TESTS RESULT OUT OF REFERENCE UNITS RANGE LAB TP 6.3-8.0 g/dL Protein, Total 6.4 LAB ALB 3.9-4.9 g/dL Albumin 4.0 LAB CA 8.5-10.2 mg/dL Calcium, Total 9.1 LAB TBIL 0.2-1.3 mg/dL Bilirubin, Total 0.5 LAB ALKP 38-113 U/L Alkaline Phosphatase 58 LAB AST 14-40 U/L AST 25 LAB GLU 74-99 mg/dL Glucose 90 Result Comment: The [place] Diabetes Association (ADA) provides guidance for cutoff values for fasting glucose and random glucose. The ADA defines fasting as no caloric intake for at least 8 hours. Fas ting plasma glucose results between 100 to 125 mg/dL indicate increased risk for diabetes (prediabetes). Fasting plasma glucose results greater than or equal to 126 mg/dL meet the criteria for diagnosis of diabetes. In the absence of unequivocal hyperglycemia, results should be confirmed by repeat testing. In a patient with classic symptoms of hyperglycemia or hyperglycemic crisis, random plasma glucose results greater than or equal to 200 mg/dL meet the criteria for diagnosis of diabetes. Reference: Standards of Medical Care in Diabetes 2016, [place] Diabetes Association. Diabetes Care. 2016.39(Suppl 1). LAB BUN 9-24 mg/dL BUN 19 LAB CRET 0.73-1.22 mg/dL Creatinine 1.12 LAB NA 136-144 mmol/L Sodium 141 LAB K 3.7-5.1 mmol/L Potassium 3.9 LAB CL 97-105 mmol/L Chloride 103 LAB CO2 22-30 mmol/L CO2 26 LAB AGAP 9-18 mmol/L Anion Gap 12 LAB ALT 10-54 U/L ALT 29 LAB GFRAA eGFR- Amer. >60 LAB GFRNAA . eGFR-All Other Races >60 Result Comment: eGFR (Estimated GFR) Units of measure: mL/min/1.73 meters squared eGFR is derived from the reexpressed MDRD Study equation using the following parameters: serum creatinine, age, gender and race. The creatinine assay has been calibrated to be traceable to IDMS. An eGFR <60 mL/min/1.73m2 for >3 months is consistent with chronic kidney disease. Refer to KDOQI guidelines for clinical interpretation. In patients with unstable renal function, e.g. those with acute kidney injury, the eGFR may not accurately reflect actual GFR. Performed By: #### CMP, LIPB #### [facility] [address] [place] [address] LIPID PANEL, BASIC Collected: 01/28/2018 Status: F Source: [place] 9:56 AM [facility] REPOSITORY TYPE CODE TESTS RESULT OUT OF REFERENCE UNITS RANGE LAB CHOL <200 mg/dL Cholesterol 122 Result Comment: <200 mg/dL, Desirable 200-239 mg/dL, Borderline high >239 mg/dL, High LAB TRIGLY <150 mg/dL Triglyceride 63 Result Comment: <150 mg/dL, Normal 150-199 mg/dL, Borderline high 200-499 mg/dL, High >499 mg/dL, Very high LAB HDL >39 mg/dL HDL-Cholesterol 59 Result Comment: 40-59 mg/dL, Acceptable >59 mg/dL, High: Negative risk factor for coronary heart disease <40 mg/dL, Low: Positive risk factor for coronary heart disease LAB LDL <100 mg/dL LDL-Cholesterol 50 Result Comment: <100 mg/dL, Optimal 100-129 mg/dL, Near optimal/above optimal 130-159 mg/dL, Borderline high 160-189 mg/dL, High >189 mg/dL, Very high Secondary prevention optimal LDL Cholesterol levels are recommended to be < 70 mg/dL LAB NONHDL <130 mg/dL Non HDL Cholesterol 63 Result Comment: <130 mg/dL, Optimal 130-159 mg/dL, Near optimal/above optimal 160-189 mg/dL, Borderline high 190-219 mg/dL, High >219 mg/dL, Very high Secondary prevention optimal non HDL Cholesterol levels are recommended to be < 100 mg/dL LAB FT hrs Fasting Time 12 LAB VLDL <30 mg/dL VLDL Cholesterol 13 LAB TCHDL <5.10 TC:HDL Ratio 2.07 LAB LDLHDL <2.54 LDL:HDL Ratio 0.85 Result Comment: Reference: 1. National Cholesterol Education Program ATP III Guideline At-A-Glance Quick Desk Reference: National Heart, Lung, and Blood [place]. National Institutes of Health. 2001: NIH Publication No. 01-3305. 2. An International Atherosclerosis Society position paper: global recommendations for the management of dyslipidemia: executive summary, Atherosclerosis. 2014: 232(2):410-413. Performed By: #### CMP, LIPB #### [facility] [address] [place], [place] [address] PULMONARY VISIT REPORT Observed: 01/27/2018 Status: F Source: TED 3:04 [facility] REPOSITORY [facility] [address] [place] [address] OFFICE VISIT Date of Service: 01/27/18 MR#: [id number] Acct: [id number] Name: EARL SINHA Rep #: [id number] : 1935 Provider: Jay Fitch MD Age/Sex: 82/M Location: [facility] Status: Signed Assessment AND Plan Problems 1. Cough R05 Plan Patient's cough is only been going on for 6 weeks, therefore does not qualify as chronic cough. However, back in the patient's history, there is significant concern for asthma. Previous pulmonary function test completed in 2011 did show small airways disease with air trapping. Patient may be a mild persistent asthma. Will obtain a complete pulmonary function test for evaluation. Did discuss with patient about the role of CT scan for evaluation of parenchyma given normal chest x-ray to rule out any interstitial lung disease, but patient would like to avoid the radiation. No new medications until further information is available. Obtain complete PFT Orders Orders: Medications New: Plan Detail Follow Up 2 Months ([facility]) HPI Dyspnea: Chief Complaint: Cough Details: Patient is an 82-year-old male, currently under the care of Dr. Antonio, who presents for evaluation secondary to cough. Patient reports that he started to develop bronchitis and a cough in the first week of December. Patient had 2 urgent care visit and the visit with his PCP since that time. Patient states that he was placed on doxycycline with minimal improvement. Patient recently was placed on prednisone therapy and is currently on a taper. Patient states that he is currently taking 20 mg of prednisone daily. Patient reports that he is slept in a chair for approximately 3 weeks secondary to severe irritation that happens with lying flat. Patient states that his cough is typically nonproductive, but at times has brought up brown sputum. Patient denies any concomitant fever, chills, nausea or vomiting. Patient does report a raw sensation in the middle of his chest. Patient denies any radiation of pain, palpitations or diaphoresis. Patient reports he has had pulmonary function tests in the past at [facility], but this was routine testing. Patient has never used any inhaler therapy before. 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 Patient states that he has noticed a significant irritation with cigarette smoke. Patient has used a repair fires in the past with improvement. Patient states occasionally he will have coughing associated with mowing the lawn. Documentation reviewed 27 pages of documentation were reviewed from patient's primary care physician. Patient has been treated for cough with doxycycline and prednisone therapy. Patient also has a history of BPH treated by Dr. Hernandez, restless legs and polyneuropathy. Patient reportedly has never been a smoker and was saturating 98% on previous office visits. Chest x-rays have been unremarkable. PFT completed in 2011 showed some response to bronchodilators and close with a normal FEV1 and air trapping. 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 Accompanied by: Self Is patient in pain?: Yes Allergies ipratropium Adverse Reaction (Mild, Verified 01/27/18 12:39) Hives Medications Aspirin 325 mg PO DAILY 04/16/13 [History Confirmed 01/24/18] Cholecalciferol (Vitamin D3) [Vitamin D3] 1,000 unit PO DAILY 04/16/13 [History Confirmed 01/24/18] Multivitamins,Therapeutic [Multivitamin] 1 tab PO DAILY 04/16/13 [History Confirmed 01/24/18] prednisone 10 mg tablet 10 mg PO .COMPLEX 01/27/18 [History Confirmed 01/27/18] PFSH Medical History Kidney stones (Acute) Lumbago (Acute) BPH (benign prostatic hyperplasia) (Chronic) Bladder neck obstruction (Chronic) Diverticulosis of colon (Chronic) Migraine without aura (Chronic) Obesity (Chronic) Osteoarthritis (Chronic) 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 (Chronic) Premature atrial contraction (Chronic) Restless leg syndrome (Chronic) Surgical History H/O adenoidectomy (Resolved) H/O arthroscopy of right knee (Resolved) H/O colonoscopy (Resolved) History of carpal tunnel release (Resolved) History of tonsillectomy (Resolved) History of total left hip replacement (Resolved) Right wrist fusion (Resolved) S/P TURP (Resolved) Family History Sister Breast cancer Social History Smoking Status: Never smoker alcohol intake: current alcohol intake frequency: 0-2 drinks per day Alcohol type: beer substance use type: does not use Review of Systems Const CONSTITUTIONAL: Negative anorexia, body ache, chills, daytime sleepiness, fever(s), night sweats, oral thrush, stops breathing during sleep, weight loss, sleeping in chair, fatigue, weight loss, weight gain, frequent colds, seasonal allergies, other, headache(s) or orthopnea EETM Ear Nose Throat Mouth: Positive hearing normal; negative hard of hearing, hoarseness, dry mouth in morning, change in vision, itchy eyes, eye pain, swallowing Difficulty, ear pain, nose bleed, headache(s), mouth pain, nasal congestion, nasal discharge, post nasal drip, sinus pain, sinus pressure, sore throat or other Cardio Cardiovascular: Negative chest pain, chest pain at rest, chest pain with activity, irregular heart rhythm, edema, shortness of breath when lying down, palpitations, murmur or other Resp Respiratory: Positive as per HPI, shortness of breath shortness of breath: Positive with activity, cough cough: Positive non-productive and chest tightness; negative pain with cough, wheezing, chest congestion, pain on inspiration, inhalers, increase use of rescue inhalers, snoring, apnea or other Gastro Gastrointestional: Negative bloody stools, change in appetite, difficulty swallowing, reflux, hematemesis, melena stool, loose stool, constipation or other Genitourinary: Negative blood in urine, nocturia, pain with urination or other Musc Musculoskeletal: Positive body pain; negative back pain, neck pain or other Skin/Breast Skin/Breast: Negative dry skin, itching, rash, unusual bruising, breast lump or other Neuro Neurological: Negative restless legs, confusion, weakness or other Psych Psychocological: Negative abnormal sleep pattern, anxiety, thoughts of hurting self/others, hopelessness or other Lymph Lymphatic: Negative easy bleeding, easy bruising, swollen lymph nodes or other Exam Const Constitutional: Positive conversant, cooperative, in no acute respiratory distress, healthy appearing, well developed, well nourished and good hygiene; negative appears older than stated age, obese, wearing supplemental oxygen, frail appearing or dyspenic Cough several times throughout the visit Head Head: Positive normocephalic and atraumatic; negative cyanosis of lips/distal nose, frontal sinus tenderness or maxillary sinus tenderness Eyes Eye: Positive clear conjunctiva; negative nystagmus, scleral abnormality or cataract present Ears Ear: Positive hearing normal and external ears normal; negative hard of hearing Nose Nose: Positive external nose normal, septum normal and no nasal discharge; negative epistaxis or nasal polyp Mouth Mouth: Positive oral mucosae normal, no lesions, good dentition and posterior oropharynx is adequate; negative post nasal drip, malodorous breath or oral thrush present Mallampati Score: I: Mallampati Score Neck Neck: Positive normal visual inspection, full ROM and trachea midline; negative lymphadenopathy or JVD Chest Wall Chest: Positive normal inspection of the chest and symmetric chest movement; negative crepitus or tenderness Resp lung sounds: Positive wheeze present on forced exhalation, diminished and prolonged expiratory time; negative wheezes, rhonchi, rales, use of accessory muscles, dullness to percussion or increased work of breathing Cardio Cardiac: Positive regular rate, regular rhythm, S1 normal and S2 normal; negative murmur, rub or gallop GI GI: Positive normal to inspection and normal bowel sounds; negative distended, ascites, epigastric tenderness or obese Genitourinary: Positive deferred Musc Musculoskeletal: Positive steady gait; negative using an assistive device for ambulation, kyphosis or scoliosis Skin Pulmonary Skin Exam: Positive intact; negative rash, lesion, ulcers, erythema or dermal atrophy Pulses Pulse: Yes radial pulses present Extremities Extremities: Yes capillary refill normal, No clubbing, No cyanosis, No edema, No stasis dermatitis Neuro Neurologic: Yes conversant, Yes no focal neuro deficits, Yes normal concentration, Yes understands questions, Yes cooperative, Yes normal cognition, Yes normal coordination Lymph Lymphatic: No lymphadenopathy Psych Appearance: Positive grossly normal Mental Status: Positive mental status grossly normal Mood: Positive congruent mood Affect: Positive normal affect Coding Level of Care Code Off vis,new,level 4 Diagnoses Cough R05 01/27/18 1504 <Electronically signed by Jay Fitch MD> Date Jay Fitch MD Cosigner Signature: Date (if applicable) CC: Suma Antonio MD PROGRESS Observed: 01/23/2018 Status: COMPLETED Source: [place] 10:22 AM [facility] REPOSITORY HNO ID: [id number] Author: Suma Antonio Service: (none) Author Type: Physician Type: Progress Notes Filed: 01/23/2018 11:02 AM Note Text: Chief Complaint Patient presents with: Back Pain: recurring back pain HPI Earl Sinha is a 82 year old male who presents here today for recurring back pain. Pt states that he had lower back pain without sciatica Feb 2017 and was sent to Physical Therapy and a few treatments from the chiropractor, which helped, pain free for 10 months. He states that he started having this pain again 2 weeks ago off and on, rated pain 5/10 to the outer upper back. He states he notices the pain when lying on his back. Has been taking 2-325 mg Aspirin a day for the pain and hot showers along with the stretches he was given from PT. He does not know what triggered the back pain to start, denies any pain down the legs. He states that he was not as active for the last month prior he was sick with bronchitis. The coughing does cause him to have pain. Bronchitis: was seen in urgent care twice and saw Akua Zepeda NP on 01/10/18. Pt was treated for the bronchitis with Doxycycline 100 mg BID for 10 days and given Prednisone 20 daily for 5 days. He is not coughing up much phlegm, still coughing. Pt is trying to get in to see a Automotive Painter Helper. Past medical history, appointments, medications, allergies reviewed. Previous Medical History PAST MEDICAL HISTORY Diagnosis Date - Bladder neck obstruction - BPH (benign prostatic hyperplasia) Seeing Dr. Hernandez - Diverticulosis of colon (without mention of hemorrhage) - Kidney stones - Lumbago - Migraine without aura, without mention of intractable migraine without mention of status migrainosus 10/10/2007 - Obesity - Osteoarthritis - PAC (premature atrial contraction) - 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 (HCC) - RLS (restless legs syndrome) Previous Surgical History PAST SURGICAL HISTORY Procedure Laterality Date - CARPAL TUNNEL RIGHT WRIST Right - COLONOSCOP W/ OR W/O [facility] SPEC 05/1998 flex sigmoidoscopy - [facility] 11/27/2011 Colonoscopy - KNEE SCOPE,DIAGNOSTIC Right 11/2005 Arthroscopy, knee - PAST SURGICAL HISTORY OF right wrist fusion - PAST SURGICAL HISTORY OF 04/17/13 TURP; Dr. Hernandez - PAST SURGICAL HISTORY OF Left 07/31/15 left total hip - REMOVAL ADENOIDS,PRIMARY,<12 Y/O Adenoidectomy - REMOVAL OF TONSILS,<12 Y/O Tonsillectomy - TRANSURETHRAL ELEC-SURG PROSTATECTOM 05/2005 TURP Family History FAMILY HISTORY Problem Relation Age of Onset - Breast Cancer Sister Patient Allergies ALLERGIES Allergen Reactions - Ipratropium [place] Hives Current Medications Current Outpatient Prescriptions on File Prior to Visit: Cholecalciferol, Vitamin D3, 1,000 unit cap Take 1 capsule by mouth once daily. Eqsndiwdgbbgb-Hjbegecu-Modxww (CENTRUM SILVER) tab Take 1 tablet by mouth once daily. aspirin, buffered (ASCRIPTIN) 325 mg buffered tablet Take 1 tablet by mouth once daily. (Patient taking differently: Take 2 tablets by mouth once daily. ) No current facility-administered medications on file prior to visit. Social History Social History Marital status: Spouse name: Abby Years of education: Number of children: 2 Occupational History Occupation Employer Comment [employer] Social History Main Topics Smoking status: Never Smoker Smokeless tobacco: Never Used Alcohol use: Yes Comment: 1 beer per day Drug use: No EXAM: BP 118/70 Pulse 66 Resp 16 Wt 101.2 kg (223 lb) BMI 29.83 kg/m? General Appearance: Well appearing, alert, in no acute distress, well-hydrated, well nourished.. Back: tender along left lower rib cage, no pain in the middle, good ROM, pain worse with bedngin to right, stretches with bending to left Lungs: lungs clear to auscultation. No wheezing, rhonchi, rales. Heart: RRR without murmur, gallop, or rubs. No ectopy. Health Maintenance List DIABETES SCREEN due on 06/17/2019 LIPID SCREEN due on 06/16/2021 DTAP,TDAP,TD(3 - Tdap) due on 01/09/2024 ADULT PREVNAR-13 Completed INFLUENZA Completed PNEUMOVAX AGE 65 AND OVER WITH 5YR LOOKBACK Completed Data reviewed Office Visit on 12/18/2017 Component Date Value - Specimen Source. 12/18/2017 Nasopharyngeal Swab - Influenza A PCR 12/18/2017 Negative for Influenza A by RT PCR - Influenza B PCR 12/18/2017 Negative for Influenza B by RT PCR - RSV PCR 12/18/2017 Negative for RSV by RT PCR ASSESSMENT/PLAN: 1. Acute low back pain without sciatica, unspecified back pain laterality - ICD9: 724.2, ICD10: M54.5 (primary diagnosis) musculoskeletal - Ice for localized tenderness - Warm moist heat for 20 min three times a day Start 9 day taper dose of prednisone Recommend continue with stretching, may see chiropractor for treatment 2. Bronchitis - ICD9: 490, ICD10: J40 Continue with symptomatic treatment Start 9 day taper dose of prednisone May see Automotive Painter Helper at [facility] Call if not improving in 1 week Will schedule check up I agree with the Chief Complaint, ROS, and Past Histories independently gathered by the clinical support clerk and the remaining scribed note accurately describes my personal service to the patient. Suma Antonio MD The documentation for this note was completed by Yary Delatorre Ma acting as scribe for Suma Antonio MD. January 23, 2018 10:22 AM. CNOV Observed: 01/23/2018 Status: COMPLETED Source: [place] 10:20 AM [facility] REPOSITORY Office Visit (FAMPWS) EARL SINHA ([id number]) 1935 M Date Time Provider Department 01/23/18 10:20 AM SUMA ANTONIO During your visit today, we recorded the following information about you: Pulse Respiration Blood pressure Weight 66/minute 16/minute 118/70 101.2 kg Suma Antonio MD 01/23/2018 11:02 AM Signed Chief Complaint Patient presents with: Back Pain: recurring back pain HPI Earl Sinha is a 82 year old male who presents here today for recurring back pain. Pt states that he had lower back pain without sciatica Feb 2017 and was sent to Physical Therapy and a few treatments from the chiropractor, which helped, pain free for 10 months. He states that he started having this pain again 2 weeks ago off and on, rated pain 5/10 to the outer upper back. He states he notices the pain when lying on his back. Has been taking 2-325 mg Aspirin a day for the pain and hot showers along with the stretches he was given from PT. He does not know what triggered the back pain to start, denies any pain down the legs. He states that he was not as active for the last month prior he was sick with bronchitis. The coughing does cause him to have pain. Bronchitis: was seen in urgent care twice and saw Akua Zepeda NP on 01/10/18. Pt was treated for the bronchitis with Doxycycline 100 mg BID for 10 days and given Prednisone 20 daily for 5 days. He is not coughing up much phlegm, still coughing. Pt is trying to get in to see a Automotive Painter Helper. Past medical history, appointments, medications, allergies reviewed. Previous Medical History PAST MEDICAL HISTORY Diagnosis Date - Bladder neck obstruction - BPH (benign prostatic hyperplasia) Seeing Dr. Hernandez - Diverticulosis of colon (without mention of hemorrhage) - Kidney stones - Lumbago - Migraine without aura, without mention of intractable migraine without mention of status migrainosus 10/10/2007 - Obesity - Osteoarthritis - PAC (premature atrial contraction) - 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 (HCC) - RLS (restless legs syndrome) Previous Surgical History PAST SURGICAL HISTORY Procedure Laterality Date - CARPAL TUNNEL RIGHT WRIST Right - COLONOSCOP W/ OR W/O [facility] SPEC 05/1998 flex sigmoidoscopy - COLONOSCOP W/ OR W/O [facility] SPEC 11/27/2011 Colonoscopy - KNEE SCOPE,DIAGNOSTIC Right 11/2005 Arthroscopy, knee - PAST SURGICAL HISTORY OF right wrist fusion - PAST SURGICAL HISTORY OF 04/17/13 TURP; Dr. Hernandez - PAST SURGICAL HISTORY OF Left 07/31/15 left total hip - REMOVAL ADENOIDS,PRIMARY,<12 Y/O Adenoidectomy - REMOVAL OF TONSILS,<12 Y/O Tonsillectomy - TRANSURETHRAL ELEC-SURG PROSTATECTOM 05/2005 TURP Family History FAMILY HISTORY Problem Relation Age of Onset - Breast Cancer Sister Patient Allergies ALLERGIES Allergen Reactions - Ipratropium [place] Hives Current Medications Current Outpatient Prescriptions on File Prior to Visit: Cholecalciferol, Vitamin D3, 1,000 unit cap Take 1 capsule by mouth once daily. Gvtuzujwtqdor-Kdedosmp-Jndicq (CENTRUM SILVER) tab Take 1 tablet by mouth once daily. aspirin, buffered (ASCRIPTIN) 325 mg buffered tablet Take 1 tablet by mouth once daily. (Patient taking differently: Take 2 tablets by mouth once daily. ) No current facility-administered medications on file prior to visit. Social History Social History Marital status: Spouse name: Abby Years of education: Number of children: 2 Occupational History Occupation Employer Comment [employer] Social History Main Topics Smoking status: Never Smoker Smokeless tobacco: Never Used Alcohol use: Yes Comment: 1 beer per day Drug use: No EXAM: BP 118/70 Pulse 66 Resp 16 Wt 101.2 kg (223 lb) BMI 29.83 kg/m? General Appearance: Well appearing, alert, in no acute distress, well-hydrated, well nourished.. Back: tender along left lower rib cage, no pain in the middle, good ROM, pain worse with bedngin to right, stretches with bending to left Lungs: lungs clear to auscultation. No wheezing, rhonchi, rales. Heart: RRR without murmur, gallop, or rubs. No ectopy. Health Maintenance List DIABETES SCREEN due on 06/17/2019 LIPID SCREEN due on 06/16/2021 DTAP,TDAP,TD(3 - Tdap) due on 01/09/2024 ADULT PREVNAR-13 Completed INFLUENZA Completed PNEUMOVAX AGE 65 AND OVER WITH 5YR LOOKBACK Completed Data reviewed Office Visit on 12/18/2017 Component Date Value - Specimen Source. 12/18/2017 Nasopharyngeal Swab - Influenza A PCR 12/18/2017 Negative for Influenza A by RT PCR - Influenza B PCR 12/18/2017 Negative for Influenza B by RT PCR - RSV PCR 12/18/2017 Negative for RSV by RT PCR ASSESSMENT/PLAN: 1. Acute low back pain without sciatica, unspecified back pain laterality - ICD9: 724.2, ICD10: M54.5 (primary diagnosis) musculoskeletal - Ice for localized tenderness - Warm moist heat for 20 min three times a day Start 9 day taper dose of prednisone Recommend continue with stretching, may see chiropractor for treatment 2. Bronchitis - ICD9: 490, ICD10: J40 Continue with symptomatic treatment Start 9 day taper dose of prednisone May see Automotive Painter Helper at [facility] Call if not improving in 1 week Will schedule check up I agree with the Chief Complaint, ROS, and Past Histories independently gathered by the clinical support clerk and the remaining scribed note accurately describes my personal service to the patient. Suma Antonio MD The documentation for this note was completed by Yary Delatorre Ma acting as scribe for Suma Antonio MD. January 23, 2018 10:22 AM. Referring Provider: SELF [[id number]] Allergies As of Date: 01/23/2018 Noted Allergy Reaction IPRATROPIUM BROMIDE 09/08/2015 4 - Hives Date Reviewed: 01/23/2018 Reviewed by: Yary Delatorre Ma - Fully Assessed Reason for Visit: Back Pain [12] Cmt: recurring back pain Primary Visit Diagnosis:Acute low back pain without sciatica, unspecified back pain laterality [M54.5] Other Visit Diagnoses:Bronchitis [J40] Wellness examination [Z00.00] Order(s):predniSONE (DELTASONE) 10 mg tabletTake 4 tabs daily for 3 days, then 2 tabs daily for 3 days, then 1 tab daily for 3 days with food.Disp: 21 tabletRfl: 0 LIPID PANEL BASIC [SQLIPB] Order #: [id number] FUTURE COMP METABOLIC PANEL [SQCMP] Order #: [id number] FUTURE Prescriptions as of 01/23/2018 Sig: CHOLECALCIFEROL (VITAMIN D3) * Take 1 capsule by mouth once * CSJPJZQQRPAW-UHVTSZDL-JPIYLW * Take 1 tablet by mouth once d* * ASPIRIN, BUFFERED 325 MG TABL* Take 1 tablet by mouth once d* Patient taking differently: Take 2 tablets by mouth once * PREDNISONE 10 MG TABLET Take 4 tabs daily for 3 days,* Problem List As Of Date 01/23/2018 Noted Resolved HYPERTONICITY OF BLADDER [N31.8] INVALID FOR* BLADDER NECK OBSTRUCTION [N32.0] INVALID FOR* HYPERTROPHY PROSTATE WITH OBST [N40.1] INVALID FOR* SOLAR SKIN DAMAGE NOS [L57.8] INVALID FOR* DERMATITIS NOS [L25.9] INVALID FOR* ACTINIC KERATOSIS [L57.0] INVALID FOR* CHR SOLAR SKIN DAMAGE NOS [L57.8] INVALID FOR* SEBORRHEIC KERATOSIS NOS [L82.1] INVALID FOR* Polyneuropathy in other diseases classified els* 01/08/2014 ACUTE DERMATITIS DUE SOLAR RADIATN [L56.8] INVALID FOR* NONSPECIF SKIN ERUPT NEC [R21] INVALID FOR* XEROSIS////SEBACEOUS GLAND DIS NEC [L73.8] INVALID FOR* COMMON MIGRAINE W/O MENTN INTRACT [G43.009] INVALID FOR* SPRAIN NOS [T14.8XXA] INVALID FOR*12/04/2007 Blood in stool [K92.1] INVALID FOR*06/11/2016 ORTHOSTATIC HYPOTENSION [I95.1] INVALID FOR* Benign Neoplasm of Skin of Trunk, except Scrotu*INVALID FOR* Capsulitis [M77.9] INVALID FOR* Congenital Pes Planus [Q66.50] INVALID FOR* Renal Colic [N23] INVALID FOR* Hematuria, gross [R31.0] INVALID FOR*06/11/2016 Calculus of Kidney [N20.0] INVALID FOR* Chronic low back pain without sciatica [M54.5, *INVALID FOR* Degeneration of Lumbar or Lumbosacral Intervert*INVALID FOR* Hyperlipemia [E78.5] INVALID FOR* Restless legs syndrome [G25.81] INVALID FOR*01/08/2014 Osteoarthritis [M19.90] INVALID FOR* Nocturia [R35.1] INVALID FOR* BPH (benign prostatic hypertrophy) [N40.0] INVALID FOR*06/11/2016 Arthritis of right knee [M17.11] INVALID FOR* Medicare annual wellness visit, subsequent [Z00*INVALID FOR*06/11/2016 Hamstring tightness [M62.89] INVALID FOR*01/08/2014 RLS (restless legs syndrome) [G25.81] INVALID FOR* Neuropathy, peripheral (HCC) [G62.9] INVALID FOR* RLQ abdominal pain [R10.31] INVALID FOR*06/11/2016 Obesity [E66.9] 02/19/2017 PAC (premature atrial contraction) [I49.1] Prescriptions ordered this encounter Disp Refills Start End PREDNISONE 10 MG TABLET 21 t* 0 01/23/2018 Sig: Take 4 tabs daily for 3 days, then 2 tabs daily for 3 days, then 1 tab daily for 3 days with food. Disposition: Return if symptoms worsen or fail to improve. Follow-up and Disposition History Recorded Encounter Status:Closed by SUMA ANTONIO MD on 01/23/18 PROGRESS Observed: 01/10/2018 Status: COMPLETED Source: [place] 8:33 AM [facility] REPOSITORY HNO ID: [id number] Author: Akua Zepeda Service: (none) Author Type: Nurse Practitioner Type: Progress Notes Filed: 01/10/2018 8:59 AM Note Text: Chief Complaint Patient presents with: Recheck HPI Earl Sinha is a 82 year old male who presents here today for Above Complaints. Patient presents to the office for 2 week follow up for cough. Went to on 01/03/2018 for bronchitis, was ongoing for 3 weeks. Was given Doxycycline and prednisone. Has 3 days left. He never did fill the prednisone as his symptoms were improving. At this time, he states that the cough is slowly improving. He is back to sleeping in his bed. States that he has been going Vics vaporizing humidification. No ear pain. Some throat rawness, but no pain. Some sinus congestion, drainage. No shortness of breath with ambulation, exertion. No chest pain. Has been able to work out by walking 1/2 mile and doing lifting, rowed 1000 meters. States that he did travel prior to his bronchitis episode. Prefers to not take anti-histamines as he has BPH. Past medical history, appointments, medications, allergies reviewed. Previous Medical History PAST MEDICAL HISTORY Diagnosis Date - Bladder neck obstruction - BPH (benign prostatic hyperplasia) Seeing Dr. Hernandez - Diverticulosis of colon (without mention of hemorrhage) - Kidney stones - Lumbago - Migraine without aura, without mention of intractable migraine without mention of status migrainosus 10/10/2007 - Obesity - Osteoarthritis - PAC (premature atrial contraction) - 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 (HCC) - RLS (restless legs syndrome) Previous Surgical History PAST SURGICAL HISTORY Procedure Laterality Date - CARPAL TUNNEL RIGHT WRIST Right - COLONOSCOP W/ OR W/O [facility] SPEC 05/1998 flex sigmoidoscopy - COLONOSCOP W/ OR W/O [facility] SPEC 11/27/2011 Colonoscopy - KNEE SCOPE,DIAGNOSTIC Right 11/2005 Arthroscopy, knee - PAST SURGICAL HISTORY OF right wrist fusion - PAST SURGICAL HISTORY OF 04/17/13 TURP; Dr. Hernandez - PAST SURGICAL HISTORY OF Left 07/31/15 left total hip - REMOVAL ADENOIDS,PRIMARY,<12 Y/O Adenoidectomy - REMOVAL OF TONSILS,<12 Y/O Tonsillectomy - TRANSURETHRAL ELEC-SURG PROSTATECTOM 05/2005 TURP Family History FAMILY HISTORY Problem Relation Age of Onset - Breast Cancer Sister Patient Allergies ALLERGIES Allergen Reactions - Ipratropium [place] Hives Current Medications Current Outpatient Prescriptions on File Prior to Visit: doxycycline monohydrate 100 mg tablet Take 1 tablet by mouth twice daily for 10 days. Cholecalciferol, Vitamin D3, 1,000 unit cap Take 1 capsule by mouth once daily. Gbzwcqbvgexwc-Gaotnnjd-Emuvta (CENTRUM SILVER) tab Take 1 tablet by mouth once daily. aspirin, buffered (ASCRIPTIN) 325 mg buffered tablet Take 1 tablet by mouth once daily. (Patient taking differently: Take 2 tablets by mouth once daily. ) No current facility-administered medications on file prior to visit. Social History Social History Marital status: Spouse name: Abby Years of education: Number of children: 2 Occupational History Occupation Employer Comment [employer] Social History Main Topics Smoking status: Never Smoker Smokeless tobacco: Never Used Alcohol use: Yes Comment: 1 beer per day Drug use: No REVIEW OF SYSTEMS: as above ? Reviewed relevant PMHx, PSHx, Social Hx, current medications and allergies. EXAM: BP 138/88 (BP Site: Left Arm) Pulse 76 Temp 36.1 ?C (97 ?F) Resp 18 SpO2 98% General Appearance: Well appearing, alert, in no acute distress, well-hydrated, well nourished.. Head: Normocephalic, no masses, lesions, tenderness or abnormalities. Eyes: Anicteric sclera. Pupils are equally round and reactive to light. Extraocular movements are intact. . Ears: External ears normal, canals clear. Nose/Sinuses: Nares normal, septum midline, mucosa normal, no drainage or sinus tenderness. Oropharynx: Lips, mucosa, and tongue normal, teeth and gums normal, oropharynx normal. Neck: Supple, no adenopathy; thyroid symmetric, normal size, no bruits. Lungs: Lungs clear to auscultation. No wheezing, rhonchi, rales. Heart: RRR without murmur, gallop, or rubs. No ectopy. Extremities: No deformities, edema Health Maintenance List DIABETES SCREEN due on 06/17/2019 LIPID SCREEN due on 06/16/2021 DTAP,TDAP,TD(3 - Tdap) due on 01/09/2024 ADULT PREVNAR-13 Completed INFLUENZA Completed PNEUMOVAX AGE 65 AND OVER WITH 5YR LOOKBACK Completed Data reviewed Impression IMPRESSION: No acute radiographic abnormality. 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 Transcribe Date/Time: Dec 18 2017 12:33P Dictated by : LANCE FORREST MD This examination was interpreted and the report reviewed and electronically signed by: LANCE FORREST MD on Dec 18 2017 12:34PM ?EST Results-Findings * * *Final Report* * * DATE OF EXAM: Dec 18 2017 12:26PM ? WOX ? [id number] ?- ?XR CHEST 2V FRONTAL/LAT ?/ PROCEDURE REASON: Cough ?? ? * * * * Physician Interpretation * * * * ?EXAMINATION: ?CHEST RADIOGRAPH (2 VIEW FRONTAL AND LATERAL) CLINICAL HISTORY: Cough MQ: ?XC2_5 Comparison: ?Chest x-ray 08/15/2015 RESULT: Lines, tubes, and devices: ?None. Lungs and pleura: ?No consolidation. No lung mass. No pleural effusion. Cardiomediastinal silhouette: ?Normal cardiomediastinal silhouette. ASSESSMENT/PLAN: 1. Cough - ICD9: 786.2, ICD10: R05 (primary diagnosis) - Slowly resolving post bronchitis treatment. Did not use prednisone as prescribed. He will finish doxycycline. He will continue humidification as this is been the most successful treatment. I discussed that a cough can be present for 4-6 weeks after treatment. 2. H/O acute bronchitis - ICD9: V12.69, ICD10: Z87.09 - see above 3. Chronic rhinitis - ICD9: 472.0, ICD10: J31.0 - advised use of Flonase 2 puffs per nostril daily if rhinitis is not improving. Discussed that this will not affect his BPH. follow-up if not improving or resolving in 4-6 weeks or worsening. Akua Zepeda APRN.ROOFER HELPER CNOV Observed: 01/10/2018 Status: COMPLETED Source: [place] 8:20 AM [facility] REPOSITORY Office Visit (FAMPWS) EARL SINHA ([id number]) 1935 M Date Time Provider Department 01/10/18 8:20 AM AKUA ZEPEDA ([facility]) FAMPWS During your visit today, we recorded the following information about you: Temperature Pulse Respiration Blood pressure 97 degrees 76/minute 18/minute 138/88 Akua Zepeda APRN.[facility] 01/10/2018 8:59 AM Signed Chief Complaint Patient presents with: Recheck HPI Earl Sinha is a 82 year old male who presents here today for Above Complaints. Patient presents to the office for 2 week follow up for cough. Went to on 01/03/2018 for bronchitis, was ongoing for 3 weeks. Was given Doxycycline and prednisone. Has 3 days left. He never did fill the prednisone as his symptoms were improving. At this time, he states that the cough is slowly improving. He is back to sleeping in his bed. States that he has been going Vics vaporizing humidification. No ear pain. Some throat rawness, but no pain. Some sinus congestion, drainage. No shortness of breath with ambulation, exertion. No chest pain. Has been able to work out by walking 1/2 mile and doing lifting, rowed 1000 meters. States that he did travel prior to his bronchitis episode. Prefers to not take anti-histamines as he has BPH. Past medical history, appointments, medications, allergies reviewed. Previous Medical History PAST MEDICAL HISTORY Diagnosis Date - Bladder neck obstruction - BPH (benign prostatic hyperplasia) Seeing Dr. Hernandez - Diverticulosis of colon (without mention of hemorrhage) - Kidney stones - Lumbago - Migraine without aura, without mention of intractable migraine without mention of status migrainosus 10/10/2007 - Obesity - Osteoarthritis - PAC (premature atrial contraction) - 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 (HCC) - RLS (restless legs syndrome) Previous Surgical History PAST SURGICAL HISTORY Procedure Laterality Date - CARPAL TUNNEL RIGHT WRIST Right - COLONOSCOP W/ OR W/O [facility] SPEC 05/1998 flex sigmoidoscopy - COLONOSCOP W/ OR W/O [facility] SPEC 11/27/2011 Colonoscopy - KNEE SCOPE,DIAGNOSTIC Right 11/2005 Arthroscopy, knee - PAST SURGICAL HISTORY OF right wrist fusion - PAST SURGICAL HISTORY OF 04/17/13 TURP; Dr. Hernandez - PAST SURGICAL HISTORY OF Left 07/31/15 left total hip - REMOVAL ADENOIDS,PRIMARY,<12 Y/O Adenoidectomy - REMOVAL OF TONSILS,<12 Y/O Tonsillectomy - TRANSURETHRAL ELEC-SURG PROSTATECTOM 05/2005 TURP Family History FAMILY HISTORY Problem Relation Age of Onset - Breast Cancer Sister Patient Allergies ALLERGIES Allergen Reactions - Ipratropium [place] Hives Current Medications Current Outpatient Prescriptions on File Prior to Visit: doxycycline monohydrate 100 mg tablet Take 1 tablet by mouth twice daily for 10 days. Cholecalciferol, Vitamin D3, 1,000 unit cap Take 1 capsule by mouth once daily. Mpylgccnwatnb-Ynpytkhp-Iglhww (CENTRUM SILVER) tab Take 1 tablet by mouth once daily. aspirin, buffered (ASCRIPTIN) 325 mg buffered tablet Take 1 tablet by mouth once daily. (Patient taking differently: Take 2 tablets by mouth once daily. ) No current facility-administered medications on file prior to visit. Social History Social History Marital status: Spouse name: Abby Years of education: Number of children: 2 Occupational History Occupation Employer Comment [employer] Social History Main Topics Smoking status: Never Smoker Smokeless tobacco: Never Used Alcohol use: Yes Comment: 1 beer per day Drug use: No REVIEW OF SYSTEMS: as above ? Reviewed relevant PMHx, PSHx, Social Hx, current medications and allergies. EXAM: BP 138/88 (BP Site: Left Arm) Pulse 76 Temp 36.1 ?C (97 ?F) Resp 18 SpO2 98% General Appearance: Well appearing, alert, in no acute distress, well-hydrated, well nourished.. Head: Normocephalic, no masses, lesions, tenderness or abnormalities. Eyes: Anicteric sclera. Pupils are equally round and reactive to light. Extraocular movements are intact. . Ears: External ears normal, canals clear. Nose/Sinuses: Nares normal, septum midline, mucosa normal, no drainage or sinus tenderness. Oropharynx: Lips, mucosa, and tongue normal, teeth and gums normal, oropharynx normal. Neck: Supple, no adenopathy; thyroid symmetric, normal size, no bruits. Lungs: Lungs clear to auscultation. No wheezing, rhonchi, rales. Heart: RRR without murmur, gallop, or rubs. No ectopy. Extremities: No deformities, edema Health Maintenance List DIABETES SCREEN due on 06/17/2019 LIPID SCREEN due on 06/16/2021 DTAP,TDAP,TD(3 - Tdap) due on 01/09/2024 ADULT PREVNAR-13 Completed INFLUENZA Completed PNEUMOVAX AGE 65 AND OVER WITH 5YR LOOKBACK Completed Data reviewed Impression IMPRESSION: No acute radiographic abnormality. Family Resource Management Professor: RICH ? Transcribe Date/Time: Dec 18 2017 12:33P Dictated by : LANCE FORREST MD This examination was interpreted and the report reviewed and electronically signed by: LANCE FORREST MD on Dec 18 2017 12:34PM ?EST Results-Findings * * *Final Report* * * DATE OF EXAM: Dec 18 2017 12:26PM ? WOX ? [id number] ?- ?XR CHEST 2V FRONTAL/LAT ?/ PROCEDURE REASON: Cough ?? ? * * * * Physician Interpretation * * * * ?EXAMINATION: ?CHEST RADIOGRAPH (2 VIEW FRONTAL AND LATERAL) CLINICAL HISTORY: Cough MQ: ?XC2_5 Comparison: ?Chest x-ray 08/15/2015 RESULT: Lines, tubes, and devices: ?None. Lungs and pleura: ?No consolidation. No lung mass. No pleural effusion. Cardiomediastinal silhouette: ?Normal cardiomediastinal silhouette. ASSESSMENT/PLAN: 1. Cough - ICD9: 786.2, ICD10: R05 (primary diagnosis) - Slowly resolving post bronchitis treatment. Did not use prednisone as prescribed. He will finish doxycycline. He will continue humidification as this is been the most successful treatment. I discussed that a cough can be present for 4-6 weeks after treatment. 2. H/O acute bronchitis - ICD9: V12.69, ICD10: Z87.09 - see above 3. Chronic rhinitis - ICD9: 472.0, ICD10: J31.0 - advised use of Flonase 2 puffs per nostril daily if rhinitis is not improving. Discussed that this will not affect his BPH. follow-up if not improving or resolving in 4-6 weeks or worsening. MARY Dutta APRN.CNP 01/10/2018 8:52 AM Signed If nasal congestion/drainage is not improving, would recommend trial of Flonase nasal 2 puffs each nostril daily. Will not effect prostate. Akua Zepeda APRN.CNP Referring Provider: FACUNDO DOBBINS (CESAR) [[id number]] Allergies As of Date: 01/10/2018 Noted Allergy Reaction IPRATROPIUM BROMIDE 09/08/2015 4 - Hives Date Reviewed: 01/10/2018 Reviewed by: Akua (Cesar) Jose Antonio - Fully Assessed Reason for Visit: Recheck [92] Primary Visit Diagnosis:Cough [R05] Other Visit Diagnoses:H/O acute bronchitis [Z87.09] Chronic rhinitis [J31.0] Prescriptions as of 01/10/2018 Sig: DOXYCYCLINE MONOHYDRATE 100 M* Take 1 tablet by mouth twice * CHOLECALCIFEROL (VITAMIN D3) * Take 1 capsule by mouth once * GOOBIJIMDMUQ-HJOCCWZE-BIEEAO * Take 1 tablet by mouth once d* * ASPIRIN, BUFFERED 325 MG TABL* Take 1 tablet by mouth once d* Patient taking differently: Take 2 tablets by mouth once * Problem List As Of Date 01/10/2018 Noted Resolved HYPERTONICITY OF BLADDER [N31.8] INVALID FOR* BLADDER NECK OBSTRUCTION [N32.0] INVALID FOR* HYPERTROPHY PROSTATE WITH OBST [N40.1] INVALID FOR* SOLAR SKIN DAMAGE NOS [L57.8] INVALID FOR* DERMATITIS NOS [L25.9] INVALID FOR* ACTINIC KERATOSIS [L57.0] INVALID FOR* CHR SOLAR SKIN DAMAGE NOS [L57.8] INVALID FOR* SEBORRHEIC KERATOSIS NOS [L82.1] INVALID FOR* Polyneuropathy in other diseases classified els* 01/08/2014 ACUTE DERMATITIS DUE SOLAR RADIATN [L56.8] INVALID FOR* NONSPECIF SKIN ERUPT NEC [R21] INVALID FOR* XEROSIS////SEBACEOUS GLAND DIS NEC [L73.8] INVALID FOR* COMMON MIGRAINE W/O MENTN INTRACT [G43.009] INVALID FOR* SPRAIN NOS [T14.8XXA] INVALID FOR*12/04/2007 Blood in stool [K92.1] INVALID FOR*06/11/2016 ORTHOSTATIC HYPOTENSION [I95.1] INVALID FOR* Benign Neoplasm of Skin of Trunk, except Scrotu*INVALID FOR* Capsulitis [M77.9] INVALID FOR* Congenital Pes Planus [Q66.50] INVALID FOR* Renal Colic [N23] INVALID FOR* Hematuria, gross [R31.0] INVALID FOR*06/11/2016 Calculus of Kidney [N20.0] INVALID FOR* Chronic low back pain without sciatica [M54.5, *INVALID FOR* Degeneration of Lumbar or Lumbosacral Intervert*INVALID FOR* Hyperlipemia [E78.5] INVALID FOR* Restless legs syndrome [G25.81] INVALID FOR*01/08/2014 Osteoarthritis [M19.90] INVALID FOR* Nocturia [R35.1] INVALID FOR* BPH (benign prostatic hypertrophy) [N40.0] INVALID FOR*06/11/2016 Arthritis of right knee [M17.11] INVALID FOR* Medicare annual wellness visit, subsequent [Z00*INVALID FOR*06/11/2016 Hamstring tightness [M62.89] INVALID FOR*01/08/2014 RLS (restless legs syndrome) [G25.81] INVALID FOR* Neuropathy, peripheral (HCC) [G62.9] INVALID FOR* RLQ abdominal pain [R10.31] INVALID FOR*06/11/2016 Obesity [E66.9] 02/19/2017 PAC (premature atrial contraction) [I49.1] Other instructions from your clinician: If nasal congestion/drainage is not improving, would recommend trial of Flonase nasal 2 puffs each nostril daily. Will not effect prostate. Akua Zepeda APRN.ROOFER HELPER Medications Discontinued During This Encounter folic acid 400 mcg tablet 0 09/30/2014 01/10/2018 Class: Historical Med Route: ORAL Sig: Take 1 tablet by mouth once daily. Disc: Discontinued by Patient omeprazole (PRILOSEC) 20 mg capsule 30 c* 1 06/07/2017 01/10/2018 Route: ORAL Sig: Take 1 capsule by mouth daily before breakfast. 1/2 hr before meal. Patient not taking: Reported on 12/18/2017 Disc: Discontinued by Patient Disposition: Return if symptoms worsen or fail to improve. Follow-up and Disposition History Recorded Encounter Status:Closed by AKUA ZEPEDA CNP on 01/10/18 PROGRESS Observed: 01/03/2018 Status: COMPLETED Source: [place] 1:33 PM [facility] [place] REPOSITORY HNO ID: [id number] Author: Facundo Dobbins Service: (none) Author Type: Nurse Practitioner Type: Progress Notes Filed: 01/03/2018 2:04 PM Note Text: Subjective HPI HPI Earl Sinha is a 82 year old male who presents today for CC of persistent cough, chest congestion. This started 1 month. Has tried otc medication without relief. Symptoms are worsened by laying down. Risk factors hx of intermittent prolonged cough, recently had viral respiratory infection. .Patient presents with: Cough: with congestion PAST MEDICAL HISTORY Diagnosis Date - Bladder neck obstruction - BPH (benign prostatic hyperplasia) Seeing Dr. 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 Hernandez - PAST SURGICAL HISTORY OF Left 07/31/15 left total hip - REMOVAL ADENOIDS,PRIMARY,<12 Y/O Adenoidectomy - REMOVAL OF TONSILS,<12 Y/O Tonsillectomy - TRANSURETHRAL ELEC-SURG PROSTATECTOM 05/2005 TURP ALLERGIES Ipratropium [place] MEDICATIONS Cholecalciferol, Vitamin D3, 1,000 unit cap Take 1 capsule by mouth once daily. Yoojalrkvpoyo-Paxrlvxe-Tburgp (CENTRUM SILVER) tab Take 1 tablet by mouth once daily. aspirin, buffered (ASCRIPTIN) 325 mg buffered tablet Take 1 tablet by mouth once daily. omeprazole (PRILOSEC) 20 mg capsule Take 1 capsule by mouth daily before breakfast. 1/2 hr before meal. folic acid 400 mcg tablet Take 1 tablet by mouth once daily. FAMILY HISTORY Problem Relation Age of Onset - Breast Cancer Sister Social History Substance Use Topics - Smoking status: Never Smoker - Smokeless tobacco: Never Used - Alcohol use Yes Comment: 1 beer per day Review of Systems Constitutional: Positive for malaise/fatigue. Negative for chills, fever and weight loss. HENT: Positive for congestion. Negative for ear pain, nosebleeds and sore throat. Respiratory: Positive for cough. Negative for shortness of breath and wheezing. Musculoskeletal: Negative for neck pain. Objective Blood pressure 106/58, pulse 96, temperature 36.1 ?C (96.9 ?F), temperature source Left Tympanic, resp. rate 20, weight 105.4 kg (232 lb 6.4 oz), SpO2 97 %. Component Latest Ref Rng AND Units 06/16/2016 Protein, Total 6.3 - 8.0 g/dL 7.0 Albumin 3.9 - 4.9 g/dL 4.0 Calcium 8.5 - 10.2 mg/dL 9.3 Bilirubin, Total 0.2 - 1.3 mg/dL 0.8 Alkaline Phosphatase 36 - 108 U/L 70 AST 14 - 40 U/L 23 Glucose 74 - 99 mg/dL 91 BUN 9 - 24 mg/dL 15 Creatinine 0.73 - 1.22 mg/dL 1.08 Sodium 136 - 144 mmol/L 142 Potassium 3.7 - 5.1 mmol/L 4.5 Chloride 97 - 105 mmol/L 103 CO2 22 - 30 mmol/L 26 Anion Gap 9 - 18 mmol/L 13 ALT 10 - 54 U/L 17 eGFR- >60 eGFR-All Other Races . >60 Physical Exam Constitutional: He is oriented to person, place, and time and well-developed, well-nourished, and in no distress. Non-toxic appearance. He does not have a sickly appearance. No distress. HENT: Head: Normocephalic and atraumatic. Right Ear: Hearing, tympanic membrane, external ear and ear canal normal. Left Ear: Hearing, tympanic membrane, external ear and ear canal normal. Nose: Nose normal. Mouth/Throat: Uvula is midline, oropharynx is clear and moist and mucous membranes are normal. Eyes: Pupils are equal, round, and reactive to light. Conjunctivae and lids are normal. Right eye exhibits no discharge. Left eye exhibits no discharge. No scleral icterus. Neck: Trachea normal and normal range of motion. Neck supple. Cardiovascular: Normal rate, regular rhythm and normal heart sounds. Pulmonary/Chest: Effort normal and breath sounds normal. Persistent loose cough during exam Lymphadenopathy: He has no cervical adenopathy. Neurological: He is alert and oriented to person, place, and time. Skin: No rash noted. He is not diaphoretic. ASSESSMENT/PLAN: 1. Persistent cough - ICD9: 786.2, ICD10: R05 - Discussed supportive care - Limit exposure to smoke and other inhaled irritants - Discussed possible red flags and when to seek medical attention - Follow up in 3-5 days or sooner if no better or worse -If you experience chest pain/shortness of breath go to ER -will schedule recheck with primary care - DOXYCYCLINE MONOHYDRATE 100 MG TABLET - PREDNISONE 20 MG TABLET - CODEINE 10 MG-GUAIFENESIN 100 MG/5 ML ORAL LIQUID Prescription instructions reviewed with patient as applicable. Patient advised if symptoms do not improve or if symptoms worsen sooner, to contact the office for further evaluation by their primary care physician. Potential red flag symptoms discussed with the patient. Reviewed appropriate action plan to take if red flag symptoms occur. Patient agreeable to treatment plan. Facundo Dobbins APRN.CESAR CNOV Observed: 01/03/2018 Status: COMPLETED Source: [place] 1:30 PM [facility] REPOSITORY Office Visit ([facility]) EARL SINHA ([id number]) 1935 M Date Time Provider Department 01/03/18 1:30 PM FACUNDO DOBBINS (CESAR) [facility] During your visit today, we recorded the following information about you: Temperature Pulse Respiration Blood pressure 96.9 degrees 96/minute 20/minute 106/58 Weight 105.4 kg Facundo Dobbins APRN.CESAR 01/03/2018 2:04 PM Signed Subjective HPI HPI Earlsukhwinder Sinha is a 82 year old male who presents today for CC of persistent cough, chest congestion. This started 1 month. Has tried otc medication without relief. Symptoms are worsened by laying down. Risk factors hx of intermittent prolonged cough, recently had viral respiratory infection. .Patient presents with: Cough: with congestion PAST MEDICAL HISTORY Diagnosis Date - Bladder neck obstruction - BPH (benign prostatic hyperplasia) Seeing Dr. 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 Hernandez - PAST SURGICAL HISTORY OF Left 07/31/15 left total hip - REMOVAL ADENOIDS,PRIMARY,<12 Y/O Adenoidectomy - REMOVAL OF TONSILS,<12 Y/O Tonsillectomy - TRANSURETHRAL ELEC-SURG PROSTATECTOM 05/2005 TURP ALLERGIES Ipratropium [place] MEDICATIONS Cholecalciferol, Vitamin D3, 1,000 unit cap Take 1 capsule by mouth once daily. Oncjpzucoabel-Tcdgyhvb-Vhewat (CENTRUM SILVER) tab Take 1 tablet by mouth once daily. aspirin, buffered (ASCRIPTIN) 325 mg buffered tablet Take 1 tablet by mouth once daily. omeprazole (PRILOSEC) 20 mg capsule Take 1 capsule by mouth daily before breakfast. 1/2 hr before meal. folic acid 400 mcg tablet Take 1 tablet by mouth once daily. FAMILY HISTORY Problem Relation Age of Onset - Breast Cancer Sister Social History Substance Use Topics - Smoking status: Never Smoker - Smokeless tobacco: Never Used - Alcohol use Yes Comment: 1 beer per day Review of Systems Constitutional: Positive for malaise/fatigue. Negative for chills, fever and weight loss. HENT: Positive for congestion. Negative for ear pain, nosebleeds and sore throat. Respiratory: Positive for cough. Negative for shortness of breath and wheezing. Musculoskeletal: Negative for neck pain. Objective Blood pressure 106/58, pulse 96, temperature 36.1 ?C (96.9 ?F), temperature source Left Tympanic, resp. rate 20, weight 105.4 kg (232 lb 6.4 oz), SpO2 97 %. Component Latest Ref Rng AND Units 06/16/2016 Protein, Total 6.3 - 8.0 g/dL 7.0 Albumin 3.9 - 4.9 g/dL 4.0 Calcium 8.5 - 10.2 mg/dL 9.3 Bilirubin, Total 0.2 - 1.3 mg/dL 0.8 Alkaline Phosphatase 36 - 108 U/L 70 AST 14 - 40 U/L 23 Glucose 74 - 99 mg/dL 91 BUN 9 - 24 mg/dL 15 Creatinine 0.73 - 1.22 mg/dL 1.08 Sodium 136 - 144 mmol/L 142 Potassium 3.7 - 5.1 mmol/L 4.5 Chloride 97 - 105 mmol/L 103 CO2 22 - 30 mmol/L 26 Anion Gap 9 - 18 mmol/L 13 ALT 10 - 54 U/L 17 eGFR- >60 eGFR-All Other Races . >60 Physical Exam Constitutional: He is oriented to person, place, and time and well-developed, well-nourished, and in no distress. Non-toxic appearance. He does not have a sickly appearance. No distress. HENT: Head: Normocephalic and atraumatic. Right Ear: Hearing, tympanic membrane, external ear and ear canal normal. Left Ear: Hearing, tympanic membrane, external ear and ear canal normal. Nose: Nose normal. Mouth/Throat: Uvula is midline, oropharynx is clear and moist and mucous membranes are normal. Eyes: Pupils are equal, round, and reactive to light. Conjunctivae and lids are normal. Right eye exhibits no discharge. Left eye exhibits no discharge. No scleral icterus. Neck: Trachea normal and normal range of motion. Neck supple. Cardiovascular: Normal rate, regular rhythm and normal heart sounds. Pulmonary/Chest: Effort normal and breath sounds normal. Persistent loose cough during exam Lymphadenopathy: He has no cervical adenopathy. Neurological: He is alert and oriented to person, place, and time. Skin: No rash noted. He is not diaphoretic. ASSESSMENT/PLAN: 1. Persistent cough - ICD9: 786.2, ICD10: R05 - Discussed supportive care - Limit exposure to smoke and other inhaled irritants - Discussed possible red flags and when to seek medical attention - Follow up in 3-5 days or sooner if no better or worse -If you experience chest pain/shortness of breath go to ER -will schedule recheck with primary care - DOXYCYCLINE MONOHYDRATE 100 MG TABLET - PREDNISONE 20 MG TABLET - CODEINE 10 MG-GUAIFENESIN 100 MG/5 ML ORAL LIQUID Prescription instructions reviewed with patient as applicable. Patient advised if symptoms do not improve or if symptoms worsen sooner, to contact the office for further evaluation by their primary care physician. Potential red flag symptoms discussed with the patient. Reviewed appropriate action plan to take if red flag symptoms occur. Patient agreeable to treatment plan. MARY Mcdaniels APRN.CNP 01/03/2018 1:57 PM Signed ASSESSMENT/PLAN: 1. Persistent cough - ICD9: 786.2, ICD10: R05 - Discussed supportive care - Limit exposure to smoke and other inhaled irritants - Discussed possible red flags and when to seek medical attention - Follow up in 3-5 days or sooner if no better or worse -If you experience chest pain/shortness of breath go to ER - DOXYCYCLINE MONOHYDRATE 100 MG TABLET - PREDNISONE 20 MG TABLET - CODEINE 10 MG-GUAIFENESIN 100 MG/5 ML ORAL LIQUID Referring Provider: SELF [[id number]] Allergies As of Date: 01/03/2018 Noted Allergy Reaction IPRATROPIUM BROMIDE 09/08/2015 4 - Hives Date Reviewed: 01/03/2018 Reviewed by: Facundo Dobbins - Fully Assessed Reason for Visit: Cough [28] Cmt: with congestion Primary Visit Diagnosis:Persistent cough [R05] Order(s):doxycycline monohydrate 100 mg tabletTake 1 tablet by mouth twice daily for 10 days.Disp: 20 tabletRfl: 0 predniSONE (DELTASONE) 20 mg tabletTake 2 tablets by mouth once daily for 5 days.Disp: 10 tabletRfl: 0 codeine-guaiFENesin (ROBITUSSIN AC) 10-100 mg/5 mL syrupTake 5-10 mL by mouth four times daily as needed for Cough for up to 3 days. May cause drowsiness.Disp: 120 mLRfl: 0 Prescriptions as of 01/03/2018 Sig: CHOLECALCIFEROL (VITAMIN D3) * Take 1 capsule by mouth once * GPDPHVNJMUQU-DZADPBUC-BVBISY * Take 1 tablet by mouth once d* * ASPIRIN, BUFFERED 325 MG TABL* Take 1 tablet by mouth once d* Patient taking differently: Take 2 tablets by mouth once * DOXYCYCLINE MONOHYDRATE 100 M* Take 1 tablet by mouth twice * PREDNISONE 20 MG TABLET Take 2 tablets by mouth once * CODEINE 10 MG-GUAIFENESIN 100* Take 5-10 mL by mouth four ti* OMEPRAZOLE 20 MG CAPSULE,DANIEL* Take 1 capsule by mouth daily* Patient not taking: Reported on 12/18/2017 FOLIC ACID 400 MCG TABLET Take 1 tablet by mouth once d* Problem List As Of Date 01/03/2018 Noted Resolved HYPERTONICITY OF BLADDER [N31.8] INVALID FOR* BLADDER NECK OBSTRUCTION [N32.0] INVALID FOR* HYPERTROPHY PROSTATE WITH OBST [N40.1] INVALID FOR* SOLAR SKIN DAMAGE NOS [L57.8] INVALID FOR* DERMATITIS NOS [L25.9] INVALID FOR* ACTINIC KERATOSIS [L57.0] INVALID FOR* CHR SOLAR SKIN DAMAGE NOS [L57.8] INVALID FOR* SEBORRHEIC KERATOSIS NOS [L82.1] INVALID FOR* Polyneuropathy in other diseases classified els* 01/08/2014 ACUTE DERMATITIS DUE SOLAR RADIATN [L56.8] INVALID FOR* NONSPECIF SKIN ERUPT NEC [R21] INVALID FOR* XEROSIS////SEBACEOUS GLAND DIS NEC [L73.8] INVALID FOR* COMMON MIGRAINE W/O MENTN INTRACT [G43.009] INVALID FOR* SPRAIN NOS [T14.8XXA] INVALID FOR*12/04/2007 Blood in stool [K92.1] INVALID FOR*06/11/2016 ORTHOSTATIC HYPOTENSION [I95.1] INVALID FOR* Benign Neoplasm of Skin of Trunk, except Scrotu*INVALID FOR* Capsulitis [M77.9] INVALID FOR* Congenital Pes Planus [Q66.50] INVALID FOR* Renal Colic [N23] INVALID FOR* Hematuria, gross [R31.0] INVALID FOR*06/11/2016 Calculus of Kidney [N20.0] INVALID FOR* Chronic low back pain without sciatica [M54.5, *INVALID FOR* Degeneration of Lumbar or Lumbosacral Intervert*INVALID FOR* Hyperlipemia [E78.5] INVALID FOR* Restless legs syndrome [G25.81] INVALID FOR*01/08/2014 Osteoarthritis [M19.90] INVALID FOR* Nocturia [R35.1] INVALID FOR* BPH (benign prostatic hypertrophy) [N40.0] INVALID FOR*06/11/2016 Arthritis of right knee [M17.11] INVALID FOR* Medicare annual wellness visit, subsequent [Z00*INVALID FOR*06/11/2016 Hamstring tightness [M62.89] INVALID FOR*01/08/2014 RLS (restless legs syndrome) [G25.81] INVALID FOR* Neuropathy, peripheral (HCC) [G62.9] INVALID FOR* RLQ abdominal pain [R10.31] INVALID FOR*06/11/2016 Obesity [E66.9] 02/19/2017 PAC (premature atrial contraction) [I49.1] Other instructions from your clinician: ASSESSMENT/PLAN: 1. Persistent cough - ICD9: 786.2, ICD10: R05 - Discussed supportive care - Limit exposure to smoke and other inhaled irritants - Discussed possible red flags and when to seek medical attention - Follow up in 3-5 days or sooner if no better or worse -If you experience chest pain/shortness of breath go to ER - DOXYCYCLINE MONOHYDRATE 100 MG TABLET - PREDNISONE 20 MG TABLET - CODEINE 10 MG-GUAIFENESIN 100 MG/5 ML ORAL LIQUID Prescriptions ordered this encounter Disp Refills Start End DOXYCYCLINE MONOHYDRATE 100 MG TABLET 20 t* 0 01/03/2018 01/13/2018 Route: ORAL Sig: Take 1 tablet by mouth twice daily for 10 days. PREDNISONE 20 MG TABLET 10 t* 0 01/03/2018 01/08/2018 Class: Print RX Route: ORAL Sig: Take 2 tablets by mouth once daily for 5 days. CODEINE 10 MG-GUAIFENESIN 100 MG/5 M* 120 * 0 01/03/2018 01/06/2018 Class: Print RX Route: ORAL Sig: Take 5-10 mL by mouth four times daily as needed for Cough for up to 3 days. May cause drowsiness. Medications Discontinued During This Encounter codeine-guaiFENesin (ROBITUSSIN AC) * 120 * 0 12/18/2017 01/03/2018 Class: Print RX Route: ORAL Sig: Take 5-10 mL by mouth four times daily as needed for Cough for up to 3 days. May cause drowsiness. Disc: Reason for discontinue is not on file. Encounter Status:Closed by FACUNDO DOBBINS CNP on 01/03/18 RAPID PCR FLU/RSV Collected: 12/18/2017 Status: F Source: [place] 1:00 PM [facility] REPOSITORY TYPE CODE TESTS RESULT OUT OF REFERENCE UNITS RANGE LAB FLRSRC Nasopharyngeal Specimen Swab Source LAB PCRFLA Negative for Influenza A Influenza A by RT PCR PCR LAB PCRFLB Negative for Influenza B Influenza B by RT PCR PCR LAB PCRRSV Negative for RSV RSV PCR by RT PCR Performed By: #### FLRSV #### [facility] [address] [place], [place] [address] XR CHEST 2V FRONTAL/LAT Observed: 12/18/2017 Status: F Source: [place] 12:26 PM [facility] REPOSITORY * * *Final Report* * * DATE OF EXAM: Dec 18 2017 12:26PM WOX [id number] - XR CHEST 2V FRONTAL/LAT / PROCEDURE REASON: Cough * * * * Physician Interpretation * * * * EXAMINATION: CHEST RADIOGRAPH (2 VIEW FRONTAL and LATERAL) CLINICAL HISTORY: Cough MQ: [id number] Comparison: Chest x-ray 08/15/2015 RESULT: Lines, tubes, and devices: None. Lungs and pleura: No consolidation. No lung mass. No pleural effusion. Cardiomediastinal silhouette: Normal cardiomediastinal silhouette. Other: . IMPRESSION: No acute radiographic abnormality. Family Resource Management Professor: PSCB Transcribe Date/Time: Dec 18 2017 12:33P Dictated by : LANCE FORREST MD This examination was interpreted and the report reviewed and electronically signed by: LANCE FORREST MD on Dec 18 2017 12:34PM EST [id number] Observed: 12/18/2017 Status: COMPLETED Source: [place] 12:21 PM [facility] REPOSITORY HNO ID: [id number] Author: Elaina Delgado (Rt) Ayush Kwok Service: (none) Author Type: Seasoning Mixer Type: Progress Notes Filed: 12/18/2017 12:26 PM Note Text: Radiology Service Progress Note PATIENT NAME: Earl Sinha DATE OF SERVICE: December 18, 2017 TIME: 12:21 PM PATIENT IDENTITY VERIFICATION COMPLETED USING TWO (2) METHODS: Patient confirmed name verbally and Date of . PATIENT GENDER DATA: Male PATIENT RELEVANT IMPLANT DATA REVIEWED: Not Applicable RADIOLOGY DEPARTMENT: General X-ray: Exam(s) Completed: Chest X-Ray PERIPHERAL IV DATA: Not applicable SIGNED BY: RT Jean Carlos December 18, 2017 12:21 PM PROGRESS Observed: 12/18/2017 Status: COMPLETED Source: [place] 11:53 AM [facility] REPOSITORY O ID: [id number] Author: Facundo Dobbins Service: (none) Author Type: Nurse Practitioner Type: Progress Notes Filed: 12/18/2017 2:15 PM Note Text: Subjective HPI HPI Earl Sinha is a 82 year old male who presents today for CC of abrupt onset of cough, sinus drainage. This started 2 days ago. Has tried otc medication with mild relief. Symptoms are worsened by nothing known. Risk factors sick exposures on plane recently/last week/sick exposures. Concerned for the flu. Positive for body aches. .Patient presents with: Chest Congestion: cough, lots of phlegm, nasal drainage x 2 days PAST MEDICAL HISTORY Diagnosis Date - Bladder neck obstruction - BPH (benign prostatic hyperplasia) Seeing Dr. 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 Hernandez - PAST SURGICAL HISTORY OF Left 07/31/15 left total hip - REMOVAL ADENOIDS,PRIMARY,<12 Y/O Adenoidectomy - REMOVAL OF TONSILS,<12 Y/O Tonsillectomy - TRANSURETHRAL ELEC-SURG PROSTATECTOM 05/2005 TURP ALLERGIES Ipratropium [place] MEDICATIONS Cholecalciferol, Vitamin D3, 1,000 unit cap Take 1 capsule by mouth once daily. Bwmxetdscwwlw-Xfpeeije-Kkjrkk (CENTRUM SILVER) tab Take 1 tablet by mouth once daily. aspirin, buffered (ASCRIPTIN) 325 mg buffered tablet Take 1 tablet by mouth once daily. omeprazole (PRILOSEC) 20 mg capsule Take 1 capsule by mouth daily before breakfast. 1/2 hr before meal. folic acid 400 mcg tablet Take 1 tablet by mouth once daily. FAMILY HISTORY Problem Relation Age of Onset - Breast Cancer Sister Social History Substance Use Topics - Smoking status: Never Smoker - Smokeless tobacco: Never Used - Alcohol use Yes Comment: 1 beer per day Review of Systems Constitutional: Positive for chills, fever (tactile) and malaise/fatigue. Negative for weight loss. HENT: Positive for congestion. Negative for ear pain, nosebleeds and sore throat. Respiratory: Positive for cough. Negative for shortness of breath and wheezing. Cardiovascular: Negative for chest pain. Musculoskeletal: Negative for neck pain. Skin: Negative for itching. Objective Blood pressure 106/64, pulse 83, temperature 37.7 ?C (99.9 ?F), temperature source Tympanic, resp. rate 16, weight 103.9 kg (229 lb), SpO2 95 %. Component Latest Ref Rng AND Units 06/16/2016 Protein, Total 6.3 - 8.0 g/dL 7.0 Albumin 3.9 - 4.9 g/dL 4.0 Calcium 8.5 - 10.2 mg/dL 9.3 Bilirubin, Total 0.2 - 1.3 mg/dL 0.8 Alkaline Phosphatase 36 - 108 U/L 70 AST 14 - 40 U/L 23 Glucose 74 - 99 mg/dL 91 BUN 9 - 24 mg/dL 15 Creatinine 0.73 - 1.22 mg/dL 1.08 Sodium 136 - 144 mmol/L 142 Potassium 3.7 - 5.1 mmol/L 4.5 Chloride 97 - 105 mmol/L 103 CO2 22 - 30 mmol/L 26 Anion Gap 9 - 18 mmol/L 13 ALT 10 - 54 U/L 17 eGFR- >60 eGFR-All Other Races . >60 Physical Exam Constitutional: He is oriented to person, place, and time and well-developed, well-nourished, and in no distress. Non-toxic appearance. He has a sickly appearance (mild). No distress. HENT: Head: Normocephalic and atraumatic. Right Ear: Hearing, tympanic membrane, external ear and ear canal normal. Left Ear: Hearing, tympanic membrane, external ear and ear canal normal. Nose: Nose normal. Mouth/Throat: Uvula is midline, oropharynx is clear and moist and mucous membranes are normal. Eyes: Pupils are equal, round, and reactive to light. Conjunctivae and lids are normal. Right eye exhibits no discharge. Left eye exhibits no discharge. No scleral icterus. Neck: Trachea normal and normal range of motion. Neck supple. Cardiovascular: Normal rate, regular rhythm and normal heart sounds. Pulmonary/Chest: Effort normal and breath sounds normal. Persistent loose cough during exam Lymphadenopathy: He has no cervical adenopathy. Neurological: He is alert and oriented to person, place, and time. Skin: No rash noted. He is not diaphoretic. ASSESSMENT/PLAN: 1. Influenza-like illness - ICD9: 799.89, ICD10: R69 (primary diagnosis) -duration 2 days, risk factor is age -given educational handout -push fluids/rest -discussed likely course/contagiousness -discussed conservative measures -f/u in 3-5 days if symptoms persist/worsen - RAPID PCR ASSAY FOR FLU/RSV - Will call results - OSELTAMIVIR 75 MG CAPSULE 2. Cough - ICD9: 786.2, ICD10: R05 xr negative - XR CHEST 2V FRONTAL/LAT - Dictated by : LANCE FORREST MD Impression IMPRESSION: No acute radiographic abnormality. - CODEINE 10 MG-GUAIFENESIN 100 MG/5 ML ORAL LIQUID OARRS checked Prescription instructions reviewed with patient as applicable. Patient advised if symptoms do not improve or if symptoms worsen sooner, to contact the office for further evaluation by their primary care physician. Potential red flag symptoms discussed with the patient. Reviewed appropriate action plan to take if red flag symptoms occur. Patient agreeable to treatment plan. Facundo Dobbins APRN.ROOFER HELPER CNOV Observed: 12/18/2017 Status: COMPLETED Source: [place] 11:45 AM [facility] REPOSITORY Office Visit (UCWSTR) EARL SINHA ([id number]) 1935 M Date Time Provider Department 12/18/17 11:45 AM FACUNDO DOBBINS (CESAR) [facility] During your visit today, we recorded the following information about you: Temperature Pulse Respiration Blood pressure 99.9 degrees 83/minute 16/minute 106/64 Weight 103.9 kg Facundo Dobbins APRN.CNP 12/18/2017 2:15 PM Signed Subjective HPI HPI Earl Sinha is a 82 year old male who presents today for CC of abrupt onset of cough, sinus drainage. This started 2 days ago. Has tried otc medication with mild relief. Symptoms are worsened by nothing known. Risk factors sick exposures on plane recently/last week/sick exposures. Concerned for the flu. Positive for body aches. .Patient presents with: Chest Congestion: cough, lots of phlegm, nasal drainage x 2 days PAST MEDICAL HISTORY Diagnosis Date - Bladder neck obstruction - BPH (benign prostatic hyperplasia) Seeing Dr. 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 Hernandez - PAST SURGICAL HISTORY OF Left 07/31/15 left total hip - REMOVAL ADENOIDS,PRIMARY,<12 Y/O Adenoidectomy - REMOVAL OF TONSILS,<12 Y/O Tonsillectomy - TRANSURETHRAL ELEC-SURG PROSTATECTOM 05/2005 TURP ALLERGIES Ipratropium [place] MEDICATIONS Cholecalciferol, Vitamin D3, 1,000 unit cap Take 1 capsule by mouth once daily. Zubmfmqnfuefy-Bhrrtske-Vvdyib (CENTRUM SILVER) tab Take 1 tablet by mouth once daily. aspirin, buffered (ASCRIPTIN) 325 mg buffered tablet Take 1 tablet by mouth once daily. omeprazole (PRILOSEC) 20 mg capsule Take 1 capsule by mouth daily before breakfast. 1/2 hr before meal. folic acid 400 mcg tablet Take 1 tablet by mouth once daily. FAMILY HISTORY Problem Relation Age of Onset - Breast Cancer Sister Social History Substance Use Topics - Smoking status: Never Smoker - Smokeless tobacco: Never Used - Alcohol use Yes Comment: 1 beer per day Review of Systems Constitutional: Positive for chills, fever (tactile) and malaise/fatigue. Negative for weight loss. HENT: Positive for congestion. Negative for ear pain, nosebleeds and sore throat. Respiratory: Positive for cough. Negative for shortness of breath and wheezing. Cardiovascular: Negative for chest pain. Musculoskeletal: Negative for neck pain. Skin: Negative for itching. Objective Blood pressure 106/64, pulse 83, temperature 37.7 ?C (99.9 ?F), temperature source Tympanic, resp. rate 16, weight 103.9 kg (229 lb), SpO2 95 %. Component Latest Ref Rng AND Units 06/16/2016 Protein, Total 6.3 - 8.0 g/dL 7.0 Albumin 3.9 - 4.9 g/dL 4.0 Calcium 8.5 - 10.2 mg/dL 9.3 Bilirubin, Total 0.2 - 1.3 mg/dL 0.8 Alkaline Phosphatase 36 - 108 U/L 70 AST 14 - 40 U/L 23 Glucose 74 - 99 mg/dL 91 BUN 9 - 24 mg/dL 15 Creatinine 0.73 - 1.22 mg/dL 1.08 Sodium 136 - 144 mmol/L 142 Potassium 3.7 - 5.1 mmol/L 4.5 Chloride 97 - 105 mmol/L 103 CO2 22 - 30 mmol/L 26 Anion Gap 9 - 18 mmol/L 13 ALT 10 - 54 U/L 17 eGFR- >60 eGFR-All Other Races . >60 Physical Exam Constitutional: He is oriented to person, place, and time and well-developed, well-nourished, and in no distress. Non-toxic appearance. He has a sickly appearance (mild). No distress. HENT: Head: Normocephalic and atraumatic. Right Ear: Hearing, tympanic membrane, external ear and ear canal normal. Left Ear: Hearing, tympanic membrane, external ear and ear canal normal. Nose: Nose normal. Mouth/Throat: Uvula is midline, oropharynx is clear and moist and mucous membranes are normal. Eyes: Pupils are equal, round, and reactive to light. Conjunctivae and lids are normal. Right eye exhibits no discharge. Left eye exhibits no discharge. No scleral icterus. Neck: Trachea normal and normal range of motion. Neck supple. Cardiovascular: Normal rate, regular rhythm and normal heart sounds. Pulmonary/Chest: Effort normal and breath sounds normal. Persistent loose cough during exam Lymphadenopathy: He has no cervical adenopathy. Neurological: He is alert and oriented to person, place, and time. Skin: No rash noted. He is not diaphoretic. ASSESSMENT/PLAN: 1. Influenza-like illness - ICD9: 799.89, ICD10: R69 (primary diagnosis) -duration 2 days, risk factor is age -given educational handout -push fluids/rest -discussed likely course/contagiousness -discussed conservative measures -f/u in 3-5 days if symptoms persist/worsen - RAPID PCR ASSAY FOR FLU/RSV - Will call results - OSELTAMIVIR 75 MG CAPSULE 2. Cough - ICD9: 786.2, ICD10: R05 xr negative - XR CHEST 2V FRONTAL/LAT - Dictated by : LANCE FORREST MD Impression IMPRESSION: No acute radiographic abnormality. - CODEINE 10 MG-GUAIFENESIN 100 MG/5 ML ORAL LIQUID OARRS checked Prescription instructions reviewed with patient as applicable. Patient advised if symptoms do not improve or if symptoms worsen sooner, to contact the office for further evaluation by their primary care physician. Potential red flag symptoms discussed with the patient. Reviewed appropriate action plan to take if red flag symptoms occur. Patient agreeable to treatment plan. Facundo Dobbins APRN.CESAR Dobbins APRN.CESAR 12/18/2017 12:59 PM Signed [facility] PATIENT INFO INFLUENZA INTRODUCTION Influenza (commonly called the flu) is a highly contagious illness that can occur in children or adults of any age. It occurs more often in the winter months because people spend more time in close contact with one another. The flu is spread easily from ntdlzo-pg-gpqalp by coughing, sneezing, or touching surfaces. Every year, complications of the flu require more than 200,000 people in the [place] to be hospitalized. Serious illness is more likely in the very young, older adults, women, and people who have certain health problems such as asthma or other forms of lung disease. There have been several widespread flu outbreaks (called pandemics), which led to the deaths of many people worldwide. These outbreaks occurred when new strains of influenza viruses formed (often from pigs or birds) and humans became infected because they had no immunity to these viruses. FLU SYMPTOMS Symptoms of seasonal flu can vary from person to person, but usually include: ? Fever (temperature higher than 100?F or 37.8?C) ? Headache and muscle aches ? Fatigue ? Cough and sore throat may also be present People with the flu usually have a fever for two to five days. This is different than fever caused by other upper respiratory viruses, which usually resolve after 24 to 48 hours. Some people have cold-like symptoms (runny nose, sore throat) during the flu while others have fever and muscle aches. Flu symptoms usually improve over two to five days, although the illness may last for a week or more. Weakness and fatigue may persist for several weeks Flu complications ? Complications of influenza occur in some people; pneumonia is the most common complication. Pneumonia is a serious infection of the lungs, and is more likely to occur in people over the age of 65, people who live in mcc care facilities (nursing homes), and those with other illnesses such as diabetes or conditions affecting the heart or lungs. FLU DIAGNOSIS Influenza is usually diagnosed based on symptoms (fever, cough and muscle aches). Lab testing for influenza is performed in certain cases, such as during a new influenza outbreak in a community. FLU TREATMENT When to seek help ? Most people with the flu recover within one to two weeks without treatment. However, serious complications of the flu can occur. Call your doctor or nurse immediately if: ? You feel short of breath or have trouble breathing ? You have pain or pressure in your chest or stomach ? You have signs of being dehydrated, such as dizziness when standing or not passing urine ? You feel confused ? You cannot stop vomiting or you cannot drink enough fluids There are several groups of people who are at increased risk for flu complications. These include women, young children (<5 years of age, and especially <2 years of age), people ?65 years of age, and people with certain diseases such as chronic lung disease (such as asthma), heart disease, diabetes, immunosuppressing conditions (such as HIV infection or transplantation), and some other diseases. If you or your child has flu symptoms and is at increased risk of flu complications, you should call your healthcare provider. Treat symptoms ? Treating the symptoms of influenza can help you to feel better, but will not make the flu go away faster. ? Rest until the flu is fully resolved, especially if the illness has been severe ? Fluids ? Drink enough fluids so that you do not become dehydrated. One way to gas brazer if you are drinking enough is to look at the color of your urine. Normally, urine should be light yellow to nearly colorless. If you are drinking enough, you should pass urine every three to five hours. ? Acetaminophen (such as Tylenol? and other brands) can relieve fever, headache, and muscle aches. Aspirin, and medicines that include aspirin (eg, bismuth subsalicylate; PeptoBismol), are not recommended for children under 18 because aspirin can lead to a serious disease called Emeli syndrome. ? Cough medicines are not usually helpful; cough usually resolves without treatment. We do not recommend cough or cold medicine for children under age six years. Antiviral treatment ? Antiviral medicines can be used to treat or prevent influenza. When used as a treatment, the medicine does not eliminate flu symptoms, although it can reduce the severity and duration of symptoms by about one day. Not every person with influenza needs an antiviral medicine; the decision is based upon your risk of developing complications of influenza. Antiviral treatment is most effective for seasonal influenza when it is taken within the first 48 hours of flu symptoms. Side effects ? Zanamivir and oseltamivir can cause mild side effects, including nausea and vomiting; zanamivir, which is inhaled, can cause difficulty breathing in some cases. Most people are able to continue the medicine despite the side effects. Antibiotics ? Antibiotics are NOT useful for treating viral illnesses such as influenza. Antibiotics should only used if there is a bacterial complication of the flu such as bacterial pneumonia, ear infection, or sinusitis. Antibiotics can cause side effects and lead to development of antibiotic resistance. Referring Provider: SELF [200] Allergies As of Date: 12/18/2017 Noted Allergy Reaction IPRATROPIUM BROMIDE 09/08/2015 4 - Hives Date Reviewed: 12/18/2017 Reviewed by: Facundo Dobbins - Fully Assessed Reason for Visit: Chest Congestion [236] Cmt: cough, lots of phlegm, nasal drainage x 2 days Primary Visit Diagnosis:Influenza-like illness [R69] Other Visit Diagnosis:Cough [R05] Order(s):XR CHEST 2V FRONTAL/LAT [[id number]] Order #: [id number]. #:[id number] RAPID PCR ASSAY FOR FLU/RSV [SQFLRSV] Order #: [id number] oseltamivir (TAMIFLU) 75 mg capsuleTake 1 capsule by mouth twice daily for 5 days.Disp: 10 capsuleRfl: 0 codeine-guaiFENesin (ROBITUSSIN AC) 10-100 mg/5 mL syrupTake 5-10 mL by mouth four times daily as needed for Cough for up to 3 days. May cause drowsiness.Disp: 120 mLRfl: 0 Prescriptions as of 12/18/2017 Sig: CHOLECALCIFEROL (VITAMIN D3) * Take 1 capsule by mouth once * KHXJTKNGUWUA-SJKOHFEG-CUBVTP * Take 1 tablet by mouth once d* * ASPIRIN, BUFFERED 325 MG TABL* Take 1 tablet by mouth once d* OSELTAMIVIR 75 MG CAPSULE Take 1 capsule by mouth twice* CODEINE 10 MG-GUAIFENESIN 100* Take 5-10 mL by mouth four ti* OMEPRAZOLE 20 MG CAPSULE,DANIEL* Take 1 capsule by mouth daily* Patient not taking: Reported on 12/18/2017 FOLIC ACID 400 MCG TABLET Take 1 tablet by mouth once d* Problem List As Of Date 12/18/2017 Noted Resolved HYPERTONICITY OF BLADDER [N31.8] INVALID FOR* BLADDER NECK OBSTRUCTION [N32.0] INVALID FOR* HYPERTROPHY PROSTATE WITH OBST [N40.1] INVALID FOR* SOLAR SKIN DAMAGE NOS [L57.8] INVALID FOR* DERMATITIS NOS [L25.9] INVALID FOR* ACTINIC KERATOSIS [L57.0] INVALID FOR* CHR SOLAR SKIN DAMAGE NOS [L57.8] INVALID FOR* SEBORRHEIC KERATOSIS NOS [L82.1] INVALID FOR* Polyneuropathy in other diseases classified els* 01/08/2014 ACUTE DERMATITIS DUE SOLAR RADIATN [L56.8] INVALID FOR* NONSPECIF SKIN ERUPT NEC [R21] INVALID FOR* XEROSIS////SEBACEOUS GLAND DIS NEC [L73.8] INVALID FOR* COMMON MIGRAINE W/O MENTN INTRACT [G43.009] INVALID FOR* SPRAIN NOS [T14.8XXA] INVALID FOR*12/04/2007 Blood in stool [K92.1] INVALID FOR*06/11/2016 ORTHOSTATIC HYPOTENSION [I95.1] INVALID FOR* Benign Neoplasm of Skin of Trunk, except Scrotu*INVALID FOR* Capsulitis [M77.9] INVALID FOR* Congenital Pes Planus [Q66.50] INVALID FOR* Renal Colic [N23] INVALID FOR* Hematuria, gross [R31.0] INVALID FOR*06/11/2016 Calculus of Kidney [N20.0] INVALID FOR* Chronic low back pain without sciatica [M54.5, *INVALID FOR* Degeneration of Lumbar or Lumbosacral Intervert*INVALID FOR* Hyperlipemia [E78.5] INVALID FOR* Restless legs syndrome [G25.81] INVALID FOR*01/08/2014 Osteoarthritis [M19.90] INVALID FOR* Nocturia [R35.1] INVALID FOR* BPH (benign prostatic hypertrophy) [N40.0] INVALID FOR*06/11/2016 Arthritis of right knee [M17.11] INVALID FOR* Medicare annual wellness visit, subsequent [Z00*INVALID FOR*06/11/2016 Hamstring tightness [M62.89] INVALID FOR*01/08/2014 RLS (restless legs syndrome) [G25.81] INVALID FOR* Neuropathy, peripheral (HCC) [G62.9] INVALID FOR* RLQ abdominal pain [R10.31] INVALID FOR*06/11/2016 Obesity [E66.9] 02/19/2017 PAC (premature atrial contraction) [I49.1] Other instructions from your clinician: [facility] PATIENT INFO INFLUENZA INTRODUCTION Influenza (commonly called the flu) is a highly contagious illness that can occur in children or adults of any age. It occurs more often in the winter months because people spend more time in close contact with one another. The flu is spread easily from wqaqod-yf-emhjuo by coughing, sneezing, or touching surfaces. Every year, complications of the flu require more than 200,000 people in the [place] to be hospitalized. Serious illness is more likely in the very young, older adults, women, and people who have certain health problems such as asthma or other forms of lung disease. There have been several widespread flu outbreaks (called pandemics), which led to the deaths of many people worldwide. These outbreaks occurred when new strains of influenza viruses formed (often from pigs or birds) and humans became infected because they had no immunity to these viruses. FLU SYMPTOMS Symptoms of seasonal flu can vary from person to person, but usually include: ? Fever (temperature higher than 100?F or 37.8?C) ? Headache and muscle aches ? Fatigue ? Cough and sore throat may also be present People with the flu usually have a fever for two to five days. This is different than fever caused by other upper respiratory viruses, which usually resolve after 24 to 48 hours. Some people have cold-like symptoms (runny nose, sore throat) during the flu while others have fever and muscle aches. Flu symptoms usually improve over two to five days, although the illness may last for a week or more. Weakness and fatigue may persist for several weeks Flu complications ? Complications of influenza occur in some people; pneumonia is the most common complication. Pneumonia is a serious infection of the lungs, and is more likely to occur in people over the age of 65, people who live in [facility] care facilities (nursing homes), and those with other illnesses such as diabetes or conditions affecting the heart or lungs. FLU DIAGNOSIS Influenza is usually diagnosed based on symptoms (fever, cough and muscle aches). Lab testing for influenza is performed in certain cases, such as during a new influenza outbreak in a community. FLU TREATMENT When to seek help ? Most people with the flu recover within one to two weeks without treatment. However, serious complications of the flu can occur. Call your doctor or nurse immediately if: ? You feel short of breath or have trouble breathing ? You have pain or pressure in your chest or stomach ? You have signs of being dehydrated, such as dizziness when standing or not passing urine ? You feel confused ? You cannot stop vomiting or you cannot drink enough fluids There are several groups of people who are at increased risk for flu complications. These include women, young children (<5 years of age, and especially <2 years of age), people ?65 years of age, and people with certain diseases such as chronic lung disease (such as asthma), heart disease, diabetes, immunosuppressing conditions (such as HIV infection or transplantation), and some other diseases. If you or your child has flu symptoms and is at increased risk of flu complications, you should call your healthcare provider. Treat symptoms ? Treating the symptoms of influenza can help you to feel better, but will not make the flu go away faster. ? Rest until the flu is fully resolved, especially if the illness has been severe ? Fluids ? Drink enough fluids so that you do not become dehydrated. One way to gas brazer if you are drinking enough is to look at the color of your urine. Normally, urine should be light yellow to nearly colorless. If you are drinking enough, you should pass urine every three to five hours. ? Acetaminophen (such as Tylenol? and other brands) can relieve fever, headache, and muscle aches. Aspirin, and medicines that include aspirin (eg, bismuth subsalicylate; PeptoBismol), are not recommended for children under 18 because aspirin can lead to a serious disease called Emeli syndrome. ? Cough medicines are not usually helpful; cough usually resolves without treatment. We do not recommend cough or cold medicine for children under age six years. Antiviral treatment ? Antiviral medicines can be used to treat or prevent influenza. When used as a treatment, the medicine does not eliminate flu symptoms, although it can reduce the severity and duration of symptoms by about one day. Not every person with influenza needs an antiviral medicine; the decision is based upon your risk of developing complications of influenza. Antiviral treatment is most effective for seasonal influenza when it is taken within the first 48 hours of flu symptoms. Side effects ? Zanamivir and oseltamivir can cause mild side effects, including nausea and vomiting; zanamivir, which is inhaled, can cause difficulty breathing in some cases. Most people are able to continue the medicine despite the side effects. Antibiotics ? Antibiotics are NOT useful for treating viral illnesses such as influenza. Antibiotics should only used if there is a bacterial complication of the flu such as bacterial pneumonia, ear infection, or sinusitis. Antibiotics can cause side effects and lead to development of antibiotic resistance. Prescriptions ordered this encounter Disp Refills Start End OSELTAMIVIR 75 MG CAPSULE 10 c* 0 12/18/2017 12/23/2017 Class: Print RX Route: ORAL Sig: Take 1 capsule by mouth twice daily for 5 days. CODEINE 10 MG-GUAIFENESIN 100 MG/5 M* 120 * 0 12/18/2017 12/21/2017 Class: Print RX Route: ORAL Sig: Take 5-10 mL by mouth four times daily as needed for Cough for up to 3 days. May cause drowsiness. Encounter Status:Closed by FACUNDO DOBBINS CNP on 12/18/17 CNNURSE Observed: 12/07/2017 Status: COMPLETED Source: [place] 9:10 AM [facility] REPOSITORY Nurse Visit ([facility]) EARL SINHA ([id number]) 1935 M Date Time Provider Department 12/07/17 9:10 AM [facility] During your visit today, we recorded the following information about you: Leobardo Garcia Cma 12/07/2017 9:21 AM Signed 82 year old male here for INACTIVATED INFLUENZA VACCINE. [id number] Season Patient is identified by name and date of : Yes [] CONTRAINDICATIONS color enhanced section Age less than 6 months? No Allergy to eggs, chicken, chicken feathers, or chicken dander? No Allergy to thimerosal (a preservative) or formaldehyde, gelatin? No History of severe reaction to any vaccine component or a previous dose of influenza vaccination? No History of Guillain-[place] Syndrome within 6 weeks after a previous influenza vaccine? No Patient is not moderately or severely ill? No Current temperature greater or equal to 100.4F? No History of Bone Marrow Transplant prior 6 months or solid organ transplant in the past 3 months ? No History of fainting after a prior injection or medical procedure? No- ? If patient has fainted in the past, the CDC recommends sitting or lying down for 15 minutes after the vaccination. [] VERIFICATION color enhanced section Was the answer Yes for any of the above contraindications? No contraindications present. Acceptable to proceed with vaccine. Patient/guardian agrees the above answers are true to the best of their knowledge? Yes Flu vaccine information sheet given? Yes See immunization activity in [facility] for details of immunizations adminstered today. Patient age: [age] year old For The 1025-8022 Flu Season 6-35 months old: Fluzone 0.25 ml - IM (Preservative Free) 3 years of age: Fluzone 0.5 ml - IM (Preservative Free) 3 years and older: Fluzone 0.5 ml- IM-(with Preservatives) 65+ years old: 2-49 years old Fluzone High-Dose 0.5 ml - IM (Preservative Free) FLUMIST- intranasal REMEMBER: If patient is less than 9 years of age and this is the first vaccine of Influenza to be received in any flu season, they should receive a second dose in one months time. Referring Provider: SELF [200] Allergies As of Date: 12/07/2017 Noted Allergy Reaction IPRATROPIUM BROMIDE 09/08/2015 4 - Hives Date Reviewed: 06/07/2017 Reviewed by: Donita Brandon Ma - Fully Assessed Reason for Visit: Imm/Inj [58] Cmt: Flu Vaccine Primary Visit Diagnosis:Need for vaccination [Z23] Order(s):INFLUENZA SEASONAL HIGH DOSE AGE 65+ [[id number]] Order #: [id number] Prescriptions as of 12/07/2017 Sig: OMEPRAZOLE 20 MG CAPSULE,DANIEL* Take 1 capsule by mouth daily* FOLIC ACID 400 MCG TABLET Take 1 tablet by mouth once d* CHOLECALCIFEROL (VITAMIN D3) * Take 1 capsule by mouth once * FJUOXYKIAKGU-RUPKCQRY-KABGEI * Take 1 tablet by mouth once d* * ASPIRIN, BUFFERED 325 MG TABL* Take 1 tablet by mouth once d* Problem List As Of Date 12/07/2017 Noted Resolved HYPERTONICITY OF BLADDER [N31.8] INVALID FOR* BLADDER NECK OBSTRUCTION [N32.0] INVALID FOR* HYPERTROPHY PROSTATE WITH OBST [N40.1] INVALID FOR* SOLAR SKIN DAMAGE NOS [L57.8] INVALID FOR* DERMATITIS NOS [L25.9] INVALID FOR* ACTINIC KERATOSIS [L57.0] INVALID FOR* CHR SOLAR SKIN DAMAGE NOS [L57.8] INVALID FOR* SEBORRHEIC KERATOSIS NOS [L82.1] INVALID FOR* Polyneuropathy in other diseases classified els* 01/08/2014 ACUTE DERMATITIS DUE SOLAR RADIATN [L56.8] INVALID FOR* NONSPECIF SKIN ERUPT NEC [R21] INVALID FOR* XEROSIS////SEBACEOUS GLAND DIS NEC [L73.8] INVALID FOR* COMMON MIGRAINE W/O MENTN INTRACT [G43.009] INVALID FOR* SPRAIN NOS [T14.8XXA] INVALID FOR*12/04/2007 Blood in stool [K92.1] INVALID FOR*06/11/2016 ORTHOSTATIC HYPOTENSION [I95.1] INVALID FOR* Benign Neoplasm of Skin of Trunk, except Scrotu*INVALID FOR* Capsulitis [M77.9] INVALID FOR* Congenital Pes Planus [Q66.50] INVALID FOR* Renal Colic [N23] INVALID FOR* Hematuria, gross [R31.0] INVALID FOR*06/11/2016 Calculus of Kidney [N20.0] INVALID FOR* Chronic low back pain without sciatica [M54.5, *INVALID FOR* Degeneration of Lumbar or Lumbosacral Intervert*INVALID FOR* Hyperlipemia [E78.5] INVALID FOR* Restless legs syndrome [G25.81] INVALID FOR*01/08/2014 Osteoarthritis [M19.90] INVALID FOR* Nocturia [R35.1] INVALID FOR* BPH (benign prostatic hypertrophy) [N40.0] INVALID FOR*06/11/2016 Arthritis of right knee [M17.11] INVALID FOR* Medicare annual wellness visit, subsequent [Z00*INVALID FOR*06/11/2016 Hamstring tightness [M62.89] INVALID FOR*01/08/2014 RLS (restless legs syndrome) [G25.81] INVALID FOR* Neuropathy, peripheral (HCC) [G62.9] INVALID FOR* RLQ abdominal pain [R10.31] INVALID FOR*06/11/2016 Obesity [E66.9] 02/19/2017 PAC (premature atrial contraction) [I49.1] Encounter Status:Closed by LEOABRDO GARCIA CMA on 12/07/17 PROGRESS Observed: 12/02/2017 Status: COMPLETED Source: [place] 3:32 PM [facility] REPOSITORY HNO ID: [id number] Author: Leobardo Garcia Cma Service: (none) Author Type: (none) Type: Progress Notes Filed: 12/07/2017 9:21 AM Note Text: 82 year old male here for INACTIVATED INFLUENZA VACCINE. 9445-0731 Season Patient is identified by name and date of : Yes [] CONTRAINDICATIONS color enhanced section Age less than 6 months? No Allergy to eggs, chicken, chicken feathers, or chicken dander? No Allergy to thimerosal (a preservative) or formaldehyde, gelatin? No History of severe reaction to any vaccine component or a previous dose of influenza vaccination? No History of Guillain-[place] Syndrome within 6 weeks after a previous influenza vaccine? No Patient is not moderately or severely ill? No Current temperature greater or equal to 100.4F? No History of Bone Marrow Transplant prior 6 months or solid organ transplant in the past 3 months ? No History of fainting after a prior injection or medical procedure? No- ? If patient has fainted in the past, the CDC recommends sitting or lying down for 15 minutes after the vaccination. [] VERIFICATION color enhanced section Was the answer Yes for any of the above contraindications? No contraindications present. Acceptable to proceed with vaccine. Patient/guardian agrees the above answers are true to the best of their knowledge? Yes Flu vaccine information sheet given? Yes [facility] for details of immunizations adminstered today. Patient age: [age] year old For The 2758-2113 Flu Season 6-35 months old: Fluzone 0.25 ml - IM (Preservative Free) 3 years of age: Fluzone 0.5 ml - IM (Preservative Free) 3 years and older: Fluzone 0.5 ml- IM-(with Preservatives) 65+ years old: 2-49 years old Fluzone High-Dose 0.5 ml - IM (Preservative Free) FLUMIST- intranasal REMEMBER: If patient is less than 9 years of age and this is the first vaccine of Influenza to be received in any flu season, they should receive a second dose in one months time. PSA,TOTAL - ANNUAL Collected: 07/09/2017 Status: F Source: [place] SCREEN 9:[address] [facility] REPOSITORY TYPE CODE TESTS RESULT OUT OF RANGE REFERENCE UNITS LAB L501.9910 0.00-4.00 ng/mL Normal PSA,TOT 1.31 SCREEN Result Comment: This test was performed using the TPSA assay method for the [employer] chemistry system. Values obtained with different assay methods cannot be used interchangably. When changing PSA assays in the course of monitoring a patient, additional sequential testing should be carried out to confirm baseline values. Performed By: #### L501.9910 #### [facility] [address] [place], [address] PROGRESS Observed: 06/07/2017 Status: COMPLETED Source: [place] 4:55 PM [facility] REPOSITORY HNO ID: [id number] Author: Chhaya Thacker Service: (none) Author Type: Nurse Practitioner Type: Progress Notes Filed: 06/07/2017 5:04 PM Note Text: Subjective HPI Pt reports several month hx of feels like something in my throat. Has not had time to be evaluated by his PCP. Requests referral to EENT. Denies fever, chills, n/v/d/c, acid reflux sx, heartburn, dsypepsia, CP, dyspnea. No choking, coughing when eating, no sour taste in mouth. No wt changes, heat/cold intolerance. After questioning does clear throat often. Has the sensation that pills, starchy foods get stuck in throat. Has not taken any OTC medications for these sx. Review of Systems Constitutional: Negative for chills, diaphoresis, fever, malaise/fatigue and weight loss. Respiratory: Negative for cough and stridor. Cardiovascular: Negative for chest pain. Gastrointestinal: Negative for abdominal pain, blood in stool, constipation, diarrhea, heartburn, nausea and vomiting. Neurological: Negative for headaches. Objective Physical Exam Constitutional: He is oriented to person, place, and time and well-developed, well-nourished, and in no distress. No distress. HENT: Mouth/Throat: Uvula is midline, oropharynx is clear and moist and mucous membranes are normal. Neck: Neck supple. No thyromegaly present. Cardiovascular: Normal rate, regular rhythm and normal heart sounds. Exam reveals no gallop and no friction rub. No murmur heard. Pulmonary/Chest: Effort normal and breath sounds normal. No respiratory distress. He has no wheezes. He has no rales. He exhibits no tenderness. Abdominal: Soft. Bowel sounds are normal. Lymphadenopathy: He has no cervical adenopathy. Neurological: He is alert and oriented to person, place, and time. Skin: Skin is warm and dry. He is not diaphoretic. BP 120/60 Pulse 70 Temp (!) 35.7 ?C (96.2 ?F) (Left Tympanic) Resp 18 Wt 105.2 kg (232 lb) BMI 31.03 kg/m2 .Patient presents with: Acute Visit: number of months something is stuck in throat PAST MEDICAL HISTORY Diagnosis Date - Bladder neck obstruction - BPH (benign prostatic hyperplasia) Seeing Dr. 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 Hernandez - PAST SURGICAL HISTORY OF Left 07/31/15 left total hip - REMOVAL ADENOIDS,PRIMARY,<12 Y/O Adenoidectomy - REMOVAL OF TONSILS,<12 Y/O Tonsillectomy - TRANSURETHRAL ELEC-SURG PROSTATECTOM 05/2005 TURP ALLERGIES Ipratropium [place] MEDICATIONS Cholecalciferol, Vitamin D3, 1,000 unit cap Take 1 capsule by mouth once daily. Pxyhfjzbxojhk-Djemuabg-Nqayjy (CENTRUM SILVER) tab Take 1 tablet by mouth once daily. aspirin, buffered (ASCRIPTIN) 325 mg buffered tablet Take 1 tablet by mouth once daily. omeprazole (PRILOSEC) 20 mg capsule Take 1 capsule by mouth daily before breakfast. 1/2 hr before meal. folic acid 400 mcg tablet Take 1 tablet by mouth once daily. FAMILY HISTORY Problem Relation Age of Onset - Breast Cancer Sister Social History Substance Use Topics - Smoking status: Never Smoker - Smokeless tobacco: Never Used - Alcohol use Yes Comment: 1 beer per day ASSESSMENT/PLAN: 1. Globus sensation - ICD9: 306.4, ICD10: F45.8 Suspect GERD. Pt requests to start with ENT, referral made. Pt to self schedule with Dr. Forbes. Instructed to f/u with PCP. - CONSULT TO ENT - OMEPRAZOLE 20 MG CAPSULE,DELAYED RELEASE The patient is instructed to return or seek emergency treatment if symptoms become worse or with any acute change in condition. The patient verbalizes understanding and is in agreement with plan of care. Chhaya Thacker CNP CNOV Observed: 06/07/2017 Status: COMPLETED Source: [place] 3:45 PM [facility] REPOSITORY Office Visit (WSTR) EARL SINHA ([id number]) 1935 M Date Time Provider Department 06/07/17 3:45 PM CHHAYA THACKER UCTR During your visit today, we recorded the following information about you: Temperature Pulse Respiration Blood pressure 96.2 degrees 70/minute 18/minute 120/60 Weight 105.2 kg Chhaya Thacker APRN.ROOFER HELPER 06/07/2017 5:04 PM Signed Subjective HPI Pt reports several month hx of ANDquot;feels like something in my throatANDquot;. Has not had time to be evaluated by his PCP. Requests referral to EENT. Denies fever, chills, n/v/d/c, acid reflux sx, heartburn, dsypepsia, CP, dyspnea. No choking, coughing when eating, no sour taste in mouth. No wt changes, heat/cold intolerance. After questioning does clear throat often. Has the sensation that pills, starchy foods get stuck in throat. Has not taken any OTC medications for these sx. Review of Systems Constitutional: Negative for chills, diaphoresis, fever, malaise/fatigue and weight loss. Respiratory: Negative for cough and stridor. Cardiovascular: Negative for chest pain. Gastrointestinal: Negative for abdominal pain, blood in stool, constipation, diarrhea, heartburn, nausea and vomiting. Neurological: Negative for headaches. Objective Physical Exam Constitutional: He is oriented to person, place, and time and well-developed, well-nourished, and in no distress. No distress. HENT: Mouth/Throat: Uvula is midline, oropharynx is clear and moist and mucous membranes are normal. Neck: Neck supple. No thyromegaly present. Cardiovascular: Normal rate, regular rhythm and normal heart sounds. Exam reveals no gallop and no friction rub. No murmur heard. Pulmonary/Chest: Effort normal and breath sounds normal. No respiratory distress. He has no wheezes. He has no rales. He exhibits no tenderness. Abdominal: Soft. Bowel sounds are normal. Lymphadenopathy: He has no cervical adenopathy. Neurological: He is alert and oriented to person, place, and time. Skin: Skin is warm and dry. He is not diaphoretic. BP 120/60 Pulse 70 Temp (!) 35.7 ?C (96.2 ?F) (Left Tympanic) Resp 18 Wt 105.2 kg (232 lb) BMI 31.03 kg/m2 .Patient presents with: Acute Visit: number of months ANDquot;something is stuck in throatANDquot; PAST MEDICAL HISTORY Diagnosis Date - Bladder neck obstruction - BPH (benign prostatic hyperplasia) Seeing Dr. 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 Hernandez - PAST SURGICAL HISTORY OF Left 07/31/15 left total hip - REMOVAL ADENOIDS,PRIMARY,ANDlt;12 Y/O Adenoidectomy - REMOVAL OF TONSILS,ANDlt;12 Y/O Tonsillectomy - TRANSURETHRAL ELEC-SURG PROSTATECTOM 05/2005 TURP ALLERGIES Ipratropium [place] MEDICATIONS Cholecalciferol, Vitamin D3, 1,000 unit cap Take 1 capsule by mouth once daily. Jhlpxgluxoexm-Mxwnzlnf-Ozhaaj (CENTRUM SILVER) tab Take 1 tablet by mouth once daily. aspirin, buffered (ASCRIPTIN) 325 mg buffered tablet Take 1 tablet by mouth once daily. omeprazole (PRILOSEC) 20 mg capsule Take 1 capsule by mouth daily before breakfast. 1/2 hr before meal. folic acid 400 mcg tablet Take 1 tablet by mouth once daily. FAMILY HISTORY Problem Relation Age of Onset - Breast Cancer Sister Social History Substance Use Topics - Smoking status: Never Smoker - Smokeless tobacco: Never Used - Alcohol use Yes Comment: 1 beer per day ASSESSMENT/PLAN: 1. Globus sensation - ICD9: 306.4, ICD10: F45.8 Suspect GERD. Pt requests to start with ENT, referral made. Pt to self schedule with Dr. Forbes. Instructed to f/u with PCP. - CONSULT TO ENT - OMEPRAZOLE 20 MG CAPSULE,DELAYED RELEASE The patient is instructed to return or seek emergency treatment if symptoms become worse or with any acute change in condition. The patient verbalizes understanding and is in agreement with plan of care. Chhaya Thacker, CESAR Referring Provider: SELF [200] Allergies As of Date: 06/07/2017 Noted Allergy Reaction IPRATROPIUM BROMIDE 09/08/2015 4 - Hives Date Reviewed: 06/07/2017 Reviewed by: Donita Brandon Ma - Fully Assessed Reason for Visit: Acute Visit [896] Cmt: number of months something is stuck in throat Primary Visit Diagnosis:Globus sensation [F45.8] Order(s):CONSULT TO ENT [9006] Order #: [id number]: 1 omeprazole (PRILOSEC) 20 mg capsuleTake 1 capsule by mouth daily before breakfast. 1/2 hr before meal.Disp: 30 capsuleRfl: 1 Prescriptions as of 06/07/2017 Sig: CHOLECALCIFEROL (VITAMIN D3) * Take 1 capsule by mouth once * MJQCBYMMOBWD-ZCPQLBUN-FYHKAC * Take 1 tablet by mouth once d* * ASPIRIN, BUFFERED 325 MG TABL* Take 1 tablet by mouth once d* OMEPRAZOLE 20 MG CAPSULE,DANIEL* Take 1 capsule by mouth daily* FOLIC ACID 400 MCG TABLET Take 1 tablet by mouth once d* Problem List As Of Date 06/07/2017 Noted Resolved HYPERTONICITY OF BLADDER [N31.8] INVALID FOR* BLADDER NECK OBSTRUCTION [N32.0] INVALID FOR* HYPERTROPHY PROSTATE WITH OBST [N40.1] INVALID FOR* SOLAR SKIN DAMAGE NOS [L57.8] INVALID FOR* DERMATITIS NOS [L25.9] INVALID FOR* ACTINIC KERATOSIS [L57.0] INVALID FOR* CHR SOLAR SKIN DAMAGE NOS [L57.8] INVALID FOR* SEBORRHEIC KERATOSIS NOS [L82.1] INVALID FOR* Polyneuropathy in other diseases classified els* 01/08/2014 ACUTE DERMATITIS DUE SOLAR RADIATN [L56.8] INVALID FOR* NONSPECIF SKIN ERUPT NEC [R21] INVALID FOR* XEROSIS////SEBACEOUS GLAND DIS NEC [L73.8] INVALID FOR* COMMON MIGRAINE W/O MENTN INTRACT [G43.009] INVALID FOR* SPRAIN NOS [T14.8XXA] INVALID FOR*12/04/2007 Blood in stool [K92.1] INVALID FOR*06/11/2016 ORTHOSTATIC HYPOTENSION [I95.1] INVALID FOR* Benign Neoplasm of Skin of Trunk, except Scrotu*INVALID FOR* Capsulitis [M77.9] INVALID FOR* Congenital Pes Planus [Q66.50] INVALID FOR* Renal Colic [N23] INVALID FOR* Hematuria, gross [R31.0] INVALID FOR*06/11/2016 Calculus of Kidney [N20.0] INVALID FOR* Chronic low back pain without sciatica [M54.5, *INVALID FOR* Degeneration of Lumbar or Lumbosacral Intervert*INVALID FOR* Hyperlipemia [E78.5] INVALID FOR* Restless legs syndrome [G25.81] INVALID FOR*01/08/2014 Osteoarthritis [M19.90] INVALID FOR* Nocturia [R35.1] INVALID FOR* BPH (benign prostatic hypertrophy) [N40.0] INVALID FOR*06/11/2016 Arthritis of right knee [M17.11] INVALID FOR* Medicare annual wellness visit, subsequent [Z00*INVALID FOR*06/11/2016 Hamstring tightness [M62.89] INVALID FOR*01/08/2014 RLS (restless legs syndrome) [G25.81] INVALID FOR* Neuropathy, peripheral (HCC) [G62.9] INVALID FOR* RLQ abdominal pain [R10.31] INVALID FOR*06/11/2016 Obesity [E66.9] 02/19/2017 PAC (premature atrial contraction) [I49.1] Prescriptions ordered this encounter Disp Refills Start End OMEPRAZOLE 20 MG CAPSULE,DELAYED REL* 30 c* 1 06/07/2017 Route: ORAL Sig: Take 1 capsule by mouth daily before breakfast. 1/2 hr before meal. Encounter Status:Closed by CHHAYA THACKER CNP on 06/07/17 PROGRESS Observed: 05/29/2017 Status: COMPLETED Source: [place] 1:35 PM [facility] REPOSITORY HNO ID: [id number] Author: Venecia Baptiste Service: (none) Author Type: Physical Therapist Type: Progress Notes Filed: 05/29/2017 1:35 PM Note Text: [facility] PHYSICAL THERAPY DISCONTINUANCE OF CARE Plan of Care Period: Start of Care Date: 02/21/17 Last Visit Date: 02/21/17 Therapy Program: Patient did not return for follow up care as planned. Please refer to last visit note for interventions provided for this episode of care. Assessment: Unable to formally assess goal achievement due to non-compliance with therapy plan of care. Reason for Discontinuation of Care: Patient has not returned to therapy or scheduled additional follow-up appointments. Venecia Baptiste, PT ALLERGIES ALLERGIES DATE TYPE / CODE NAME / CODE REACTION SEVERITY SOURCE 01/27/2018 Drug ipratropium/[id number] Hives ID [place] Allergy/416 4943(RXNORM) Community [id number]([facility] ED CT) Repository 09/08/2015 DRUG IPRATROPIUM HIVES [facility] INGREDI/[address] [place] 857304([facility] ED CT) 04/17/2013 Drug No Known Unknown [place] Allergy/416 Allergies/[id number] [facility] [id number]([address]) Repository ENCOUNTERS ENCOUNTERS ADMIT/DISCHARGE ACCOUNT ADMITTING ENCOUNTER LOCATION SOURCE NUMBER CLASS 03/27/2018/03/27/19 [id number] Ambulatory BMSBuilding[facility]B [place] [facility] [place] 02/20/2018 [id number] Ambulatory BMSBuilding:W [place] [facility] Repository 02/20/2018 [id number] Ambulatory [facility] ing:PSN Repository 02/04/2018/02/07/20 [id number] Ambulatory [address] Repository 01/28/2018/01/29/20 [id number] Ambulatory [address] Repository 01/27/2018/01/28/20 [id number] Ambulatory BMSBuilding:B [place] [facility] 01/23/2018/01/25/20 [id number] Ambulatory [address] Repository 01/10/2018/01/14/20 [id number] Ambulatory [address] Repository 01/03/2018/01/07/20 [id number] Ambulatory [address] Repository 12/18/2017/12/19/19 [id number] Ambulatory [address] Repository 12/18/2017/12/19/19 [id number] Ambulatory [address] Repository 12/07/2017/12/10/19 [id number] Ambulatory [address] Repository 07/09/2017 [id number] [place] [facility] ing:LAB.ELISA Repository E 06/07/2017/06/11/19 [id number] Ambulatory [address] Repository 02/21/2017/02/23/20 [id number] Ambulatory [address] Repository PAYERS PAYERS ENCOUNTER GUARANTOR PAYER SUBSCRIBER SOURCE 03/27/2018 EARL A Primary EARL A [place] [id number] Insurance:MEDICARE LUTTONDOB: [facility] PART A [facility] [id number] Number: Repository [id number]: 330 [id number] [phone] () Date:2018-01-27 03/27/2018 Secondary EARL A Ted Insurance:AARPPolicy TTONDOB: [facility] Number: [id number] Hospital [id number] Repository Date:1944-28-44[address], [place] [address]VC: 03/27/2018 Tertiary NOT GIVENUNK [place] Insurance:SELF PAY [facility] Number: Effective Repository Date:2018-03-20 02/20/2018 EARL A Primary EARL A [place] [id number] Insurance:MEDICARE LUTTONDOB: [facility] PART A [facility] [id number] Number: Repository [id number]: 330 [id number] [phone] () Date:2018-01-27 02/20/2018 Secondary EARL A [place] Insurance:AARPPolicy TTONDOB: Community Number: [id number] Hospital [id number] Repository Date:[id number] [address], [place] [address]LM: 02/20/2018 Tertiary NOT GIVENUNK [place] Insurance:SELF PAY [facility] Number: Effective Repository Date:2018-02-20 02/20/2018 EARL A Primary EARL A [place] [id number] Insurance:MEDICARE LUTTONDOB: [facility] PART A [facility] [id number] [place] Number: Repository [id number]: 330 [id number] [phone] () Date:2018-01-27 02/20/2018 Secondary EARL A Ted Insurance:AARPPolicy LUTTONDOB: [facility] Number: [id number] Hospital [id number] Repository Date:[id number] [address], [place] [address]AW: 02/20/2018 Tertiary NOT GIVENUNK [place] Insurance:SELF PAY [facility] Effective Repository Date:2018-01-27 01/27/2018 EARL A Primary EARL A Ted [id number] Insurance:MEDICARE LUTTONDOB: [facility] PART A [facility] [id number]. [facility] Number: Repository [id number]: 330 [id number] [phone] () Date:2018-01-23 01/27/2018 Secondary EARL A [place] Insurance:AARPPolicy LUTTONDOB: [facility] Number: [id number] Hospital [id number] Repository Date:7602-14-68[address], [place] [address]YI: 01/27/2018 Tertiary NOT GIVENUNK [place] Insurance:SELF PAY [facility] Number: Effective Repository Date:2018-01-23 07/09/2017 Earl A Primary Earl A Ted [id number] Insurance:MEDICARE LuttonDOB: [facility] [place] PART A [facility] [id number] [place] Number: Repository [id number]: 330 [id number] [phone] () Date:2017-07-08 07/09/2017 Secondary Earl A Ted Insurance:AARPPolicy LuttonDOB: [facility] Number: [id number] Hospital [id number] Repository Date:[id number] [address], [place] [address]QZ: 07/09/2017 Tertiary NOT GIVENGIRMA Jean Insurance:SELF PAY [facility] Number: Effective Repository Date:2017-07-08
== END ==
PROVIDERS: Family Provider Family Medicine; PCP Family Medicine; Referring Provider Internal Medicine Critical Care Medicine; Visit Provider Internal Medicine Critical Care Medicine
DX: R05 Cough (principal)
CPT/HCPCS: 94060; 94726; 94729

== ENCOUNTER → 2018-04-15 16:26 | Outpatient (CLI) | payer MEDICARE, OTHER, SELFPAY ==
[2018-04-15 16:02] VITALS: BMI 28.0
== END ==
PROVIDERS: Family Provider Family Medicine; PCP Family Medicine; Referring Provider Nurse Practitioner Acute Care; Visit Provider Nurse Practitioner Acute Care
DX: R05 Cough (principal)
CPT/HCPCS: 87070; 87205

== ENCOUNTER → 2018-04-25 11:57 | Outpatient (CLI) | payer MEDICARE, OTHER, SELFPAY ==
[2018-04-25 08:49] VITALS: BMI 28.0
--- NOTE | 2018-04-25 12:16 | RAD_ITS ---
STUDY: X-RAY CHEST REASON FOR EXAM: Male, 82 years old. Cough. TECHNIQUE: PA and lateral views of the chest. COMPARISON: None. FINDINGS: Hyperinflation. There is no demonstrated pleural abnormality. There is borderline cardiomegaly. Normal mediastinum and nahid. Normal visualized pulmonary arteries. There is atherosclerotic tortuosity of the aortic arch and descending thoracic aorta. There are diffuse degenerative changes of the visualized thoracic spine. Normal visualized ribs, clavicles, and shoulders. There is no demonstrated abnormality of the visualized soft tissue structures of the upper abdomen. RAD/Chest PA and Lateral IMPRESSION: Hyperinflation. The lungs are clear. Electronically Signed: Logan Ramirez MD at 12:51 EST , Service support ,
[2018-04-25 12:50] LABS: Absolute Lymphocyte Count 1.15 X10^3/ul (0.83-4.51); Absolute Neutrophil Count 7.3 X10^3/uL (2.0-7.7); Basophil# 0.03 X10^3/uL; Basophil% 0.3 % (0-1); Eosinophil# 0.31 X10^3/uL; Eosinophils% 3.2 % (0-5); Hematocrit 44.6 % (40-54); Hemoglobin 14.6 g/dl (13.0-16.5); Lymphocyte # 1.15 X10^3/ul (4.0); Lymphocyte % 11.9 % (19-41); Mean Corp Hgb Conc 32.7 g/gl (32-36); Mean Corpuscular Hgb 31.3 pg (27.0-32.0); Mean Corpuscular Volume 95.5 fL (80-94); Mean Platelet Vol. 10.7 fl (6.2-12.0); Monocyte# 0.89 X10^3/uL; Monocyte% 9.2 % (0-10); Neutrophil # 7.27 X10^3/uL (2.7-7.7); Neutrophil % 74.9 % (47-70); Platelet Count 216 K/mm3 (150-450); RBC Distribution Width CV 13.3 % (11.6-14.6); RBC Distribution Width SD 46.2 fl (35.1-43.9); Red Blood Count 4.67 M/mm3 (4.6-6.2); White Blood Count 9.7 K/mm3 (4.4-11.0)
[2018-04-25 12:54] LABS: POSITIVE COUNT NO; POSITIVE DIFFERENTIAL NO; POSITIVE MORPHOLOGY NO
[2018-04-25 13:13] LABS: Anion Gap 8 (5-15); BUN 11 mg/dL (7-18); BUN/Creat Ratio 10.4 RATIO (10-20); Calcium,Total 8.4 mg/dL (8.5-10.1); Chloride 106 mmol/L (98-107); Creatinine, Serum 1.06 mg/dL (0.70-1.30); EST Glomerular Filtration Rate 71 mL/min (>60); Est Glom Filt Rate - Afr Amer 86 mL/min (>60); Glucose 92 mg/dL (74-106); Potassium 4.2 mmol/L (3.5-5.1); Sodium Level 139 mmol/L (136-145)
== END ==
PROVIDERS: Family Provider Family Medicine; PCP Family Medicine; Referring Provider Nurse Practitioner Acute Care; Visit Provider Nurse Practitioner Acute Care
DX: R05 Cough (principal); R60.0 Localized edema
CPT/HCPCS: 36415; 71046; 80048; 83880; 85025

== ENCOUNTER 2018-07-25 11:47 | Emergency (ER) | payer MEDICARE, OTHER, SELFPAY ==
[2018-04-25 08:49] VITALS: BMI 28.0
[2018-07-25 11:49] VITALS: BP 113/62; PULSE 74; RESP 15; TEMP 36.2; O2SAT 97; BMI 28.5
--- NOTE | 2018-07-25 12:20 | ED.DCSUM_ITS ---
History of Present Illness Chief Complaint: Numb/Ting Detail of Chief Complaint: Left occipital postauricular and left posterior neck altered sensation Informant: Patient, Significant Other Onset: Today Context: Sudden Onset Timing: Intermittent Quality: Formication left occipital, posterior neck and shoulder with discomfort Location: Left Current Severity: - - Resolved Maximum Severity: Severe - states he appeared uncomfortable and he reports he felt uncomfortable. Worsened by: Nothing Relieved by: Patient took 2 aspirin and 2 acetaminophen. Associated Symptoms: Patient complained of blurred vision right eye. He believes this is an aur Narrative: Patient presents with intermittent left-sided posterior head, neck and shoulder tingling with discomfort. Symptoms are resolved. He also had what he believes is an aura prior to his migraine. He is describing symptoms consistent with ocular migraine. He denies scintillating scotoma. He has unilateral blurred vision and waviness noted. He denied loss of vision. He denies ocular pain. He denies ringing his ears or ear pain. He denies trouble with speech or swallowing. He denies paresthesia, anesthesia or motor weakness upper lower externally. He denied problems with walking or balance. He denied nausea or vomiting. There is no history of trauma. stated her major concern was that he appeared very uncomfortable. Prior similar symptoms: No Recent Illness/Hospitalization: No - Past Medical History (1) History of migraine Status: Acute Past Medical History - Allergies and Home Meds Allergies/Adverse Reactions: Allergies ipratropium Adverse Reaction (Mild, Verified 07/25/18 11:52) Hives Primary Care Physician: Orlando Galvan MD [Primary Care Provider] - Prior records reviewed: Yes Surgical History: noncontributory Lives: Spouse/ Significant Other Smoking Status: Former smoker Alcohol: Rare Drugs: None Review of Systems General: Denies: Chills, Fever, Malaise, Sweats, Weight loss Eyes: Reports: Visual changes - right, Blurred vision - right. Denies: Diplopia ENT: Denies: Bilateral ear pain, Rhinorrhea, Sore throat Cardiovascular: Denies: Chest pain Gastrointestinal: Denies: Abdominal pain, Nausea, Vomiting, Diarrhea, Melena, Hematochezia Genitourinary: Denies: Dysuria, Hematuria, Frequency Musculoskeletal: Reports: Neck pain - Posteriorly on the left side. Denies: Myalgias, Arthralgias, Back pain, Swelling, Extremity Pain Skin: Denies: Rash, Wounds Neurological: Reports: Headache, Weakness. Denies: Parasthesia, Numbness Hematologic: Denies: Easy bruising, Easy bleeding Allergy: Denies: Uticaria Physical Exam Vital Signs/Narrative: Vital Signs Temp Pulse Resp BP Pulse Ox 07/25/18 11:49 97.2 F L 74 15 113/62 97 Inital Vital Signs reviewed: Yes General: Well nourished, Well developed, No Acute Distress Head: Normocephalic, Atraumatic Eyes: Perrl, EOMI. Negative for: Pale conjunctiva, Scleral icterus ENT: Moist mucous membranes, No rhinorrhea Neck: Supple, Nontender, No lymphadenopathy, No JVD, - Cardiovascular: Regular rate, Regular rhythm, No murmurs, Normal S1, Normal S2 Respiratory: No distress, CTA bilaterally, Chest nontender Abdomen: Soft, Nontender, Nondistended, Normal bowel sounds Rectal: Deferred Extremities: Nontender, No edema Skin: Normal color, No rash, No Trauma. Negative for: Cyanosis, Jaundice Neurological: Alert, Oriented x3, Cranial nerves II-XII grossly intact, Normal Strength, Normal Sensation, Normal DTR - 1+ biceps, brachialis and triceps reflex bilaterally. 1+ patella and ankle bilaterally. No clonus or Babinski sign., Normal Gait, - - Finger-nose to finger performed adequately. Psychological: Normal affect, Normal Mood Diagnostic/Tx/Re-eval Chest X-Ray - ED: Read by ED Physician, - - 3 view x-ray of the cervical spine was obtained. Degenerative changes noted with asymmetric disc spaces. No other abnormality noted. 1243 Impressions Cervical Spine X-Ray 07/25/18 12:35 IMPRESSION: Straightening of the normal cervical lordosis. Multilevel disc space narrowing and spondylosis. Electronically Signed: Logan Ramirez, at 13:04 EDT , Service support , 07/25/18 12:35 Cerv Spine 2 or 3 Views [RAD] Stat Laboratory Results 07/25/18 07/25/18 07/25/18 12:24 12:24 12:50 WBC 5.2 RBC 4.40 L Hgb 13.9 Hct 41.3 MCV 93.9 MCH 31.6 MCHC 33.7 RDW 13.8 RDW Differential 47.4 H Plt Count 160 MPV 11.0 Immature Gran % (Auto) 0.000 Neut % (Auto) 56.8 Lymph % (Auto) 24.6 [place] % (Auto) 12.5 H Eos % (Auto) 4.6 Baso % (Auto) 1.5 H Absolute Neuts (auto) 3.0 Absolute Lymphs (auto) 1.28 Total Counted Not Reportable Sodium Cancelled 138 Potassium Cancelled 4.1 Chloride Cancelled 108 H Carbon Dioxide Cancelled 25.0 Anion Gap Cancelled 5 BUN Cancelled 21 H Creatinine Cancelled 1.08 Estim Creat Clear Calc Cancelled 63.03 Est GFR (MDRD) Af Amer Cancelled 84 Est GFR (MDRD) Non-Af Cancelled 70 BUN/Creatinine Ratio Cancelled 19.4 Glucose Cancelled 93 Calcium Cancelled 8.4 L - Medical Decision Making Patient describes what in my opinion is an ocular migraine. With his complaint of discomfort in his neck and shoulder and tingling will obtain x-ray of the neck to evaluate for bony abnormality and specifically narrowing of the foramen. Because he complains of generalized weakness CBC was obtained to evaluate white count and for anemia. He states he has not eaten well and believes he is dehydrated. Will obtain basic medical panel to assess electrolytes, renal function and CO2/anion gap. Blood work is unremarkable. X-ray reveals degenerative changes. Patient symptoms may be a variant of his migraine versus degenerative neck disease causing pain and abnormal sensation. Since patient is pain-free at the present time and symptoms only lasted 2030 minutes will discharge to follow-up with Dr. Galvan. ED Disposition - Plan for ED Patient: Disposition: Home or Assisted Living Diagnosis: Ocular migraine, Posterior neck pain, Degenerative disc disease, cervical Instructions: ED Paraesthesias, ED Degenerative Joint Disease Referrals: Orlando Galvan MD [Primary Care Provider] - 3-5 Days
[2018-07-25 12:31] LABS: Absolute Lymphocyte Count 1.28 X10^3/ul (0.83-4.51); Basophil# 0.08 X10^3/uL; Basophil% 1.5 % (0-1); Eosinophil# 0.24 X10^3/uL; Eosinophils% 4.6 % (0-5); Hematocrit 41.3 % (40-54); Hemoglobin 13.9 g/dl (13.0-16.5); Lymphocyte # 1.28 X10^3/ul (4.0); Lymphocyte % 24.6 % (19-41); Mean Corp Hgb Conc 33.7 g/gl (32-36); Mean Corpuscular Hgb 31.6 pg (27.0-32.0); Mean Corpuscular Volume 93.9 fL (80-94); Monocyte# 0.65 X10^3/uL; Monocyte% 12.5 % (0-10); Neutrophil # 2.95 X10^3/uL (2.7-7.7); Neutrophil % 56.8 % (47-70); Platelet Count 160 K/mm3 (150-450); RBC Distribution Width CV 13.8 % (11.6-14.6); RBC Distribution Width SD 47.4 fl (35.1-43.9); White Blood Count 5.2 K/mm3 (4.4-11.0)
[2018-07-25 12:34] LABS: POSITIVE COUNT NO; POSITIVE DIFFERENTIAL NO; POSITIVE MORPHOLOGY NO
--- NOTE | 2018-07-25 12:35 | RAD_ITS ---
STUDY: X-RAY - CERVICAL SPINE REASON FOR EXAM: Male, 82 years old. Tingling and discomfort along the left side of the neck. TECHNIQUE: 3 view(s) of the cervical spine were obtained. COMPARISON: None FINDINGS: Normal anterior atlantoaxial articulation. Normal odontoid process. There is straightening of the normal cervical lordosis. There is multi-level endplate spondylosis. There is multi-level degenerative disc disease with multilevel disc space narrowing. Facet joint osteoarthritis. Focal calcification of the posterior nuchal ligament. RAD/Cerv Spine 2 or 3 Views IMPRESSION: Straightening of the normal cervical lordosis. Multilevel disc space narrowing and spondylosis. Electronically Signed: Logan Ramirez, at 13:04 EDT , Service support ,
[2018-07-25 13:07] LABS: Anion Gap 5 (5-15); BUN 21 mg/dL (7-18); BUN/Creat Ratio 19.4 RATIO (10-20); Calcium,Total 8.4 mg/dL (8.5-10.1); Chloride 108 mmol/L (98-107); Creatinine, Serum 1.08 mg/dL (0.70-1.30); EST Glomerular Filtration Rate 70 mL/min (>60); Est Glom Filt Rate - Afr Amer 84 mL/min (>60); Estimated Creatinine Clearance 63.03 ml/min; Glucose 93 mg/dL (74-106); Potassium 4.1 mmol/L (3.5-5.1); Sodium Level 138 mmol/L (136-145)
[2018-07-25 13:33] VITALS: BP 138/69; PULSE 71; RESP 15; O2SAT 95
== END 2018-07-25 13:34 | disposition home or self-care (01) ==
PROVIDERS: Emergency Provider Emergency Medicine; Family Provider Family Medicine; PCP Family Medicine
DX: G43.109 Migraine with aura, not intractable, without status migrainosus (principal); M50.30 Other cervical disc degeneration, unspecified cervical region; Z87.891 Personal history of nicotine dependence
CPT/HCPCS: 72040; 80048; 85025; 99283

== ENCOUNTER → 2018-12-08 13:13 | Outpatient (CLI) | payer MEDICARE, OTHER, SELFPAY ==
[2018-11-21 09:22] VITALS: BMI 28.2
[2018-11-27 15:36] VITALS: BMI 27.5
--- NOTE | 2018-12-08 13:16 | RAD_ITS ---
STUDY: SWALLOWING STUDY REASON FOR EXAM: Male, 83 years old. Dysphagia. TECHNIQUE: The examination was performed with Speech Pathology in attendance. Under fluoroscopic observation, the patient ingested thin barium, thick barium, barium pudding, and barium coated cracker. FLUOROSCOPY TIME: 2:06 minutes/seconds. 1819 fluoroscopic images were obtained. RADIOLOGIST INVOLVEMENT: Radiologist was present and providing direct supervision. COMPARISON: None. FINDINGS: The following was observed during swallowing of the various mixtures of barium: Thin Barium: Transient penetration with ingestion of thin liquids. This improves with the chin tuck maneuver. Thick Barium: There was no evidence of aspiration or laryngeal penetration. Barium Pudding: There was no evidence of aspiration or laryngeal penetration. Large amount of residual in the vallecula and piriform sinuses. Barium Coated Cracker: There was no evidence of aspiration or laryngeal penetration. RAD/Swallowing Function w/Video IMPRESSION: Transient penetration with ingestion of thin liquids. Large amount of residual in the vallecula and piriform sinuses. Hypertrophy of the cricopharyngeus muscle. The swallow study findings were discussed with the patient by the speech pathologist at the conclusion of the examination. Please see speech pathology report for more information and recommendations. Electronically Signed: Logan Ramirez, at 15:46 EDT , Service support ,
--- NOTE | 2018-12-08 13:30 | SP.MBSS_ITS ---
PRIMARY / SECONDARY DIAGNOSIS: dysphagia (R13.10) REFERRING PHYSICIAN: Dr. Humphrey Dickerson MD CURRENT DIET: regular textures, thin liquids DENTITION: WFL MENTAL STATUS: WNL RESPIRATORY STATUS: O2 via room air REASON FOR REFERRAL: The Patient is an 82 year old male referred for a modified barium swallow (MBS) study to objectively assess the Patients oropharyngeal swallow function under fluoroscopy secondary to concerns regarding dysphagia and aspiration and an association with his unexplained chronic coughing. MEDICAL HISTORY: Atrial contraction; atrial fibrillation; chronic cough; migraine without aura, kidney stones; acute lumbago; benign prostatic hyperplasia; bladder neck obstruction; diverticulosis of colon; obesity; osteoarthritis; polyneuropathy in other diseases classified elsewhere; restless leg syndrome; status post tonsillectomy and adenoidectomy; status post arthroscopy of right knee; status post colonoscopy; status post carpal tunnel release; status post total left hip replacement; status post right wrist fusion; status post TURP. PREVIOUS MODIFIED BARIUM SWALLOW STUDY: None. ADDITIONAL OBJECTIVE ASSESSMENT RESULTS: 02/20/2018 pulmonary functions test revealed irreversible mild large airways obstructive ventilatory defect with preserved diffusion capacity. ASSESSMENT PARAMETERS: The Patient participated in a Modified Barium Swallow (MBS) study on 12/08/2018. Dr. Ramirez was the radiologist present for this evaluation. This study was recorded in the lateral view and images were sent to PACs for storage. Scoring was completed through each trial using the 8-point Penetration-Aspiration Scale (PAS), and summarized via the Modified Barium Swallow Impairment Profile (MBSImP) and the Bolus Residue Scale (BRS), with severity scoring through the Dysphagia Severity Rating Scale (DSRS) and the Swallowing Performance Scale (PSP), and recommended diet textures through the International Dysphagia Diet Standardisation Initiative (IDDSI). RESULTS OF THE EVALUATION: The Patient presents with mild to moderate oropharyngeal dysphagia (DSRS: 3; SPS: 4) with results notable for pharyngeal dysmotility in addition to intermittent shallow penetration and inconsistent ejection of thin liquids without a clear etiology of cause. OBJECTIVE ASSESSMENT OF SWALLOW FUNCTION (QUANTITATIVE ? PER TRIAL): PENETRATION / ASPIRATION SCALE (CAPONE): 1 = does not enter airway 2 = enters airway/above vocal folds/ejected 3 = enters airway/above vocal folds/not ejected 4 = enters airway/contacts vocal folds/ejected 5 = enters airway/contacts vocal folds/not ejected 6 = enters airway/below vocal folds/ejected 7 = enters airway/below vocal folds/not ejected despite effort 8 = enters airway/below vocal folds/no effort PENETRATION / ASPIRATION SCALE (SCORE): Thin liquid - 5 mL tsp.: 1 Thin liquids via cup (single sip): 1 Thin liquids via cup (single sip): 1 Thin liquids via cup (sequential swallows): 3 Pudding via spoon: 1 Regular textured cookie: 1 Thin liquids via straw (single sip): 1 Thin liquids via straw (single sip): 1 Thin liquids via straw (sequential swallows): 2 OBJECTIVE ASSESSMENT OF SWALLOW FUNCTION (QUANTITATIVE ? AGGREGATE): MODIFIED BARIUM SWALLOW IMPAIRMENT PROFILE (MBSImP) LABIAL SEAL: 0 (of 4) no labial escape TONGUE CONTROL: 1 (of 3) lateral buccal cavity / floor of mouth BOLUS PREPARATION / MASTICATION: 0 (of 3) timely and efficient BOLUS TRANSPORT / LINGUAL MOTION: 3 (of 4) repetitive / disorganized motion ORAL RESIDUE: 1 (of 4) trace residue lining oral structures INITIATION OF PHARYNGEAL SWALLOW: 0 (of 4) posterior angle of ramus SOFT PALATE ELEVATION: 0 (of 4) no bolus between soft palate & pharyngeal wall LARYNGEAL ELEVATION: 0 (of 3) complete superior movement / approximation ANTERIOR HYOID EXCURSION: 1 (of 2) partial movement EPIGLOTTIC MOVEMENT: 1 (of 2) partial inversion LARYNGEAL VESTIBULE CLOSURE: 1 (of 2) incomplete closure PHARYNGEAL STRIPPING WAVE: 1 (of 2) present / diminished PE SEGMENT OPENIN (of 3) partial distension / duration / obstruction TONGUE BASE RETRACTION: 2 (of 4) narrow column of contrast PHARYNGEAL RESIDUE: 3 (of 4) majority of contrast remaining ESOPHAGEAL BOLUS CLEARANCE: could not view BOLUS RESIDUE SCALE (BRS): 5(of 6) residue on the posterior pharyngeal wall and piriform sinus DYSPHAGIA SEVERITY RATING SCALE (DSRS): 3 (mild-moderate) SWALLOWING PERFORMANCE SCALE (SPS): 4 (mild to moderate) OBJECTIVE ASSESSMENT OF SWALLOW FUNCTION (QUALITATIVE): ORAL PREPARATORY PHASE: sufficient mastication rate and quality; sufficient anterior oral containment during presentation / manipulation; preserved management of breathing / bolus formation. ORAL TRANSITIONAL PHASE: abnormal bolus manipulation / transportation with fragmented swallowing (piecemeal deglutition) and noted mild discoordinated lingual movements most prominent with more viscous textures; sufficient oral clearance; no presence of premature posterior bolus loss. PHARYNGEAL PHASE: no signs of pharyngeal dyssynchrony; reduction in hyolaryngeal excursion and duration resulting in suboptimal laryngeal vestibule closure / pressure / duration and inconsistent laryngeal vestibule pressure generated to expel penetrated material; pharyngeal dysmotility most prominently with semisolid and solid textures attributed to reduced tongue based retraction, reduced posterior pharyngeal stripping wave action, and reduced pharyngoesophageal segment opening, with consolidation within the vallecula pyriforms, and upper esophageal segment opening (noted post prandial return of semisolid bolus from the UES requiring Patient initiated expectoration); no signs of velopharyngeal impairments. ESOPHAGEAL PHASE: no obvious esophageal phase abnormalities observed. 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, possibly complicating pharyngoesophageal motility in combination with noted cervical osteophyte also located at the C6-C7 level when combined with above findings, though the Patients pediatrician/medical doctor would be able to provide further impute as to the significance; very dry and FREQUENT throat clearing and coughing occurring prior to, in between, and following trials with no association to bolus ingestion; no changes in quality associated with ingestion, it still appears unclear as to how this associates with above findings (are the pharyngeal changes associate with pharyngeal irritation with chronic coughing? What is the relation of the symptoms?) with the information available at the time of assessment. RESPONSE TO STRATEGIES: all deficits appeared to be managed successfully with reduction in bolus rate / volume adjustments, and diet texture adjustments, execution of liquid chasers following semisolid and solid ingestion. DYSPHAGIA ASSOCIATED MEDICAL CONSIDERATIONS / INTERVENTION CONSIDERATIONS: It is unclear as to if / how the Patients dysphagia is associated with his persistent coughing, as this was unrelenting prior to the assessment and following the assessment, with no change associated with findings under fluoroscopy, and sufficient post prandial pharyngeal clearance upon termination of the fluoroscopy unit. There are no clear etiological factors available upon review of the Patient?s medical records. There is a clear deficit in laryngeal valving / epiglottic deflection and pharyngeal constriction during deglutition, though would this be in response to potential pharyngeal irritation, or could this be a precipitating factor to his persistent coughing? The Patent may be considered to be at a higher risk of aspiration related medical complications / aspiration pneumonia / aspiration related pulmonary syndrome secondary to presence of dysphagia with pharyngeal phase impairment and the potential for tracheobronchial aspiration of more dense viscosities given the findings of pharyngeal dysmotility and the Patients advanced age (though he remains independent and functionally active). Would consider this Patient to be a high risk for malnutrition due to the rather significant amount of weight lost reported over the last 2-3 months (~15 lbs), and the Patients advanced age, the significance of dysphagia and pharyngeal phase impairments. The Patient may require intervention to reduce the risk of malnutrition, with considerations for food enrichment, and oral nutritional supplementation. Would consider a referral to a registered clinical dietitian. INTERVENTION RECOMMENDATIONS AND CONSIDERATIONS: The Patient would benefit from continued skilled speech-language intervention targeting diet texture management and training / implementation of recommended compensatory strategies; with considerations for training and implementation of oropharyngeal strengthening exercises to facilitate improved oropharyngeal strength and coordination, though it is unclear as to the anticipated benefits from strengthening exercises given the lack of clarity regarding etiological factors (pharyngeal irritation? undiagnosed etiological factor? mechanical factors? combination of the above?), will proceed with implementation unless further impute from the medical team is provided suggesting this approach is contraindicated and / or would be found to lack any anticipated medical benefit. POST ASSESSMENT EDUCATION: Results and recommendations were discussed at length with the Patient immediately following MBS completion, with the Patient verbalizing understanding and agreement with all recommendations and education provided. We discussed factors impacting effects of aspiration, to include: the quantity of aspiration, the depth of aspiration (trachea or distal airways), and the physical properties of the aspirate. We discussed consequences of oropharyngeal dysphagia, to include pulmonary complications from tracheobronchial aspiration; potential for airway obstruction / asphyxiation; inadequate oral intake because of dysphagia; reduced caloric intake resulting in unintentional and potentially medically complicating loss of weight; impairment in mental and physical condition; and potential complications in overall course of care. I provided brief overview of signs and symptoms of aspiration, with recommendations for the Patient to further discuss symptoms with the Patients primary care provider and / or his referring physician. DIET TEXTURE RECOMMENDATIONS: Will recommend a regular ? soft textured (IDDSI: 6), thin liquid diet (IDDSI: 0) diet RECOMMENDED COMPENSATORY STRATEGIES: Consider cutting tougher textures into bite sized pieces, reduced bolus volume / rate of ingestion, liquid chaser at reasonable intervals, seated upright at 90 degrees during PO intake, remain upright for 30-60 minutes post meal (GERD precaution), medications one at a time with purees. IMAGE COUNT: [id number] Calixto Sorto M.A., CCC-CITY JAILER, CBIS MBSImP Certified, LSVT Certified [facility] Speech-Language Pathology Department [email or web address]
== END ==
PROVIDERS: Family Provider Family Medicine; PCP Family Medicine; Referring Provider Otolaryngology; Visit Provider Otolaryngology
DX: R13.10 Dysphagia, unspecified (principal)
CPT/HCPCS: 74230; 92611

== ENCOUNTER → 2018-12-15 06:56 | Outpatient (CLI) | payer MEDICARE, OTHER, SELFPAY ==
[2018-11-27 15:36] VITALS: BMI 27.5
[2018-12-09 11:23] VITALS: BMI 27.5
--- NOTE | 2018-12-15 06:58 | ECHOCS_ITS ---
Reason For Study: AFIB/FLUTTER Procedure This was a 2D Doppler, Color Flow transthoracic echocardiogram. The study was technically difficult. Due to diminished accoustic apical windows. Contrast injection was performed. Exam performed in department. Left Ventricle Normal LV size. Left ventricular systolic function is normal. The estimated ejection fraction is 55 %. Unable to assess diastolic dysfunction. No regional wall motion abnormalities noted. Right Ventricle Mildly dilated right ventricle. Mild global right ventricular systolic dysfunction. Atria The left atrium is moderately enlarged. The right atrium is severely enlarged. No doppler evidence for ASD. Mitral Valve There is no mitral annular calcification. Normal mitral valve. Mild (1+) mitral valve insufficiency. Tricuspid Valve Normal tricuspid valve. Mild to moderate (1-2+) tricuspid valve insufficiency. Right ventricular systolic pressure estimated to be 24 mmHg. Aortic Valve Trisinus/trileaflet aortic valve. Mild focal aortic valve calcification. Trivial aortic valve insufficiency. Pulmonic Valve The pulmonic valve is not well visualized. Trivial eccentric pulmonic valve insufficiency. Great Vessels Borderline enlarged aortic root. Pericardium/Pleural No pericardial effusion. Medication Diluted definity 3.0ml given slow IV push to enhance endocardial definition. MMode/2D Measurements & Calculations LVIDd: 5.3 cm IVSd: 1.0 cm Ao root diam: 3.6 cm LVIDs: 3.5 cm LVPWd: 1.0 cm RVDd: 4.7 cm FS: 34.1 % LAV(MOD-bp): 100.1 ml LA A4 area: 27.8 cm2 LA dimension(2D): 3.9 cm LAV(MOD-bp) Indexed: 45.6 ml/m2 LAV(MOD-sp2): 110.4 ml LAV(MOD-sp4): 91.1 ml RA A4 area: 30.4 cm2 Doppler Measurements & Calculations MV E max serafin: 82.8 cm/sec Ao V2 max: 93.2 cm/sec AI max serafin: 320.9 cm/sec Ao max P.5 mmHg AI max P.2 mmHg AI dec slope: 133.3 cm/sec2 AI P1/2t: 705.3 msec LV V1 max: 57.7 cm/sec PA V2 max: 74.9 cm/sec TR max serafin: 228.5 cm/sec LV V1 max P.3 mmHg TR max P.9 mmHg Interpretation Summary The study was technically difficult. Contrast injection was performed. Left ventricular systolic function is normal. The estimated ejection fraction is 55 %. Mildly dilated right ventricle. Mild global right ventricular systolic dysfunction. The left atrium is moderately enlarged. The right atrium is severely enlarged. Mild (1+) mitral valve insufficiency. Mild to moderate (1-2+) tricuspid valve insufficiency. Mild focal aortic valve calcification. Trivial aortic valve insufficiency. Trivial eccentric pulmonic valve insufficiency. Borderline enlarged aortic root. Right ventricular systolic pressure estimated to be 24 mmHg. Unable to assess diastolic dysfunction. Ordering Physician: Jose Galvan Referring Physician: Orlando Galvan Performed By: Estelle Macias, MICHELLE, RVT
--- NOTE | 2018-12-15 16:11 | STRESSREP ---
Stress Test Report Date: 12-15-18 Procedure: Pharmacologic stress nuclear imaging study Indications: Chest pain; atrial fibrillation Consent: Per the patient Procedure: The patient underwent pharmacologic (Regadenoson) evaluation with a peak heart rate of 100 beats per minute (72 %predicted maximal heart rate) and a peak blood pressure of 120/60 mmHg. The baseline ECG demonstrated atrial fibrillation; right IVCD pattern. The peak pharmacologic ECG demonstrated no obvious ECG changes. There was an occasional PVC during infusion and recovery. There was no complaint of chest discomfort during pharmacologic infusion or recovery. The examination was discontinued secondary to completion of protocol. Impression: 1. Pharmacologic (Regadenoson) evaluation 2. Peak pharmacologic ECG with no obvious ECG changes. 3. There was an occasional PVC during infusion and recovery. 4. Nuclear images pending Myocardial perfusion imaging study: Technique: The patient was injected with 12.0 millicuries of technetium 99m Cardiolite and subsequently rest SPECT Cardiolite nuclear imaging was obtained in the horizontal long, vertical long, and short axis views. The patient underwent pharmacologic (Regadenoson) evaluation with a peak heart rate of 100 beats per minute (72 % percent predicted maximal heart rate) and a peak blood pressure of 120/60 mmHg. The patient was injected with 36.0 millicuries of technetium 99m Cardiolite and subsequently stress SPECT Cardiolite nuclear imaging was obtained in the horizontal long, vertical long, and short axis views. A gated Cardiolite study at peak stress was obtained. Interpretation: Rest and stress SPECT Cardiolite nuclear imaging status post realignment, normalization, and attenuation correction demonstrate relative uniform tracer uptake and myocardial perfusion appearing within normal limits. There is end systolic thickening and brightening. The gated Cardiolite study demonstrates myocardial thickening and inward wall motion. The reported LVEF is 53 %. Impression: 1. Rest and stress SPECT Cardiolite nuclear imaging demonstrate relative uniform tracer uptake and myocardial perfusion appearing within normal limits. 2. The gated Cardiolite study reports an LVEF of 53 %. This note was generated with Flexcomation software. It may contain incorrect words, spelling, and punctuation that were not noted in checking the note before signing.
== END ==
PROVIDERS: Family Provider Family Medicine; PCP Family Medicine; Referring Provider Internal Medicine Cardiovascular Disease; Visit Provider Internal Medicine Cardiovascular Disease
DX: R07.9 Chest pain, unspecified (principal); I48.91 Unspecified atrial fibrillation; I48.92 Unspecified atrial flutter
CPT/HCPCS: 78452; 93017; 93306; A9500; Q9957; A4216; C8929; J2785

== ENCOUNTER → 2018-12-16 08:26 | Day surgery (SDC) | payer MEDICARE, OTHER, SELFPAY ==
[2018-11-27 15:36] VITALS: BMI 27.5
[2018-12-09 11:23] VITALS: BMI 27.5
[2018-12-15 10:51] VITALS: BMI 28.2
[2018-12-15 11:59] LABS: Anion Gap 5 (5-15); BUN 13 mg/dL (7-18); BUN/Creat Ratio 13.2 RATIO (10-20); Calcium,Total 9.1 mg/dL (8.5-10.1); Chloride 106 mmol/L (98-107); Creatinine, Serum 0.98 mg/dL (0.70-1.30); EST Glomerular Filtration Rate 77 mL/min (>60); Est Glom Filt Rate - Afr Amer 94 mL/min (>60); Glucose 81 mg/dL (74-106); Sodium Level 139 mmol/L (136-145)
--- NOTE | 2018-12-16 10:05 | PCM.HP.BLA ---
Problem List (1) Atrial fibrillation Status: Acute History and Physical Date of Admission: 12/16/18 [facility] [address] [place] [address] OFFICE VISIT Date of Service: 11/27/18 MR#: [id number] Acct: [id number] Name: EARL FORD Rep #: [id number] : 1935 Provider: Jose Galvan MD Age/Sex: 82/M Location: [facility] [place] Status: Signed [facility] History of Present Illness Details: This is an 82-year-old white male who presents today for cardiovascular consultation based upon concerns of atrial fibrillation. He has recently been diagnosed with atrial fibrillation. He states on 11/07/2018 he was diagnosed with atrial fibrillation and initiated anticoagulant therapy with Xarelto. To the best of his knowledge prior to that he had never been diagnosed with atrial fibrillation and had only been diagnosed with a premature heartbeat which has been followed over the years. He has denied any ongoing concerns of chest discomfort other than discomfort he has experienced recently with his significant coughing issues. He has not had ongoing shortness of breath or dyspnea suspicious for CHF or pulmonary edema. There is been no near syncope or syncope recently. He states recently his main concern is recurrent coughing spells. He has had episodes like this in the past for which she is undergone extensive evaluation. In the past if not deemed to either a viral event or a bacterial event. He states he is undergoing evaluation now by his PCP, customer assistant, and ENT. He is being treated medically. He states there is a concern as to whether or not there is a swallowing issue contributing to this. He is due for an upcoming swallowing study. He notes with his current treatment his coughing is improved although he coughed frequently during his office visit. He states in the past when he has had his coughing spells to the best of his knowledge he was always in normal rhythm. This is the first time he is been noted to be in an abnormal rhythm. He had an ECG on 11/06/2018. At that time he was noted to be in what appeared to be atrial fibrillation with a left axis deviation and a right bundle branch block pattern. His ECG was repeated today. Again he had what appeared to be an underlying atrial fibrillation/flutter with a left axis deviation and a right bundle branch block pattern and an occasional PVC. Of note on both ECGs his rate was controlled without any rate limiting medications. He states he is undergone noninvasive cardiovascular testing through the [facility] system in the past. Based upon records of the been able to be obtained it appears that in October 2007 he had a transthoracic echocardiogram performed. At that time his left ventricle was reported as normal with respect to size and systolic function with an LVEF of approximately 60%, mild biatrial enlargement, mild thickening of the mitral valve leaflets, mild MR, mild TR, aortic valve sclerosis with mild AI, mild PI, and a mildly dilated aortic root/a sending aorta which was reported as demonstrating no significant change from a previous study on 01/06/2001. His estimated RV systolic pressure of the time was 25 mmHg. He had an exercise tolerance test/nuclear imaging study on 08/20/2011. That was reported as demonstrating no evidence of ischemia or infarction. His LV systolic function was normal. He is also undergone previous autonomic dysfunction evaluation for remote history of syncope at the [facility] Main campus. He had a tilt table study performed. This demonstrated he had PACs, PVCs, sinus arrhythmia, systolic progressive orthostatic hypotension and late mild diastolic orthostatic hypotension. He states his findings were related to dehydration. He states since maintaining fluids he has had no recurrent events. Intake Vital Signs 11/27/18 Height 6 ft 2 in 11/27/18 Weight: 214 lb 4 oz 11/27/18 Body Mass Index (BMI) 27.5 11/27/18 Blood Pressure 124/56 H 11/27/18 Blood Pressure Location Lt brachial 11/27/18 Blood Pressure Position Sitting 11/27/18 Respiratory Rate 18 11/27/18 Pulse Rate 80 11/27/18 Pulse Source Auscultation 11/27/18 Body Mass Index (BMI) 28.2 Intake Visit Reasons: A-Fib/Flutter/Ref. [facility] Regulatory And Compliance Technician Required: No Accompanied by: Allergies ipratropium Adverse Reaction (Mild, Verified 11/27/18 15:37) Hives Medications Cholecalciferol (Vitamin D3) [Vitamin D3] 1,000 unit PO DAILY 04/16/13 [History Confirmed 11/27/18] Multivitamins,Therapeutic [Multivitamin] 1 tab PO DAILY 04/16/13 [History Confirmed 11/27/18] omeprazole 40 mg capsule,delayed release 40 mg PO DAILY #90 cap 07/28/18 [Rx Confirmed 11/27/18] cyanocobalamin (vitamin B-12) 1,000 mcg capsule 1,000 mcg PO DAILY 11/18/18 [History Confirmed 11/27/18] rivaroxaban 20 mg tablet 20 mg PO DAILY 11/18/18 [History Confirmed 11/27/18] azelastine-fluticasone 137 mcg-50 mcg/spray nasal spray 1 spray INTRANASAL BID 11/27/18 [History] benzonatate 100 mg capsule 100 mg PO TID 11/27/18 [History Confirmed 11/27/18] [facility] Medical History Premature atrial contraction (Chronic) New onset atrial fibrillation (Acute) Cough (Acute) History of migraine (Acute) Kidney stones (Acute) Lumbago (Acute) BPH (benign prostatic hyperplasia) (Chronic) Bladder neck obstruction (Chronic) Diverticulosis of colon (Chronic) Migraine without aura (Chronic) Obesity (Chronic) Osteoarthritis (Chronic) 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 (Chronic) Restless leg syndrome (Chronic) Surgical History History of ankle surgery (Resolved) H/O adenoidectomy (Resolved) H/O arthroscopy of right knee (Resolved) H/O colonoscopy (Resolved) History of carpal tunnel release (Resolved) History of tonsillectomy (Resolved) History of total left hip replacement (Resolved) Right wrist fusion (Resolved) S/P TURP (Resolved) Family History Sister Breast cancer Social History (Updated 11/27/18 @ 17:25 by Jose Galvan MD) Smoking Status: Never smoker alcohol intake: current alcohol intake frequency: 0-2 drinks per day Alcohol type: beer details: occasional substance use type: does not use caffeine: Yes Type: coffee Number of servings: 1 ROS Const Const: Positive for fatigue; negative for weakness, frequent falls, excessive sweating, weight gain or weight loss Eyes Eyes: Negative for transient loss of vision, blurry vision or change in vision ENT ENT: Negative for dizziness or balance problems Cardio Chest Pain: No Palpitations: No Edema: None Muscle aches with walking: None Resp Respiratory: Positive for Cough (dry); negative for SOB with activity or SOB at rest GI GI: Negative vomiting or vomiting blood/hematemesis : Negative for hematuria Musc Musc: Negative for muscle aches/ myalgia, muscle weakness, joint pain or balance problems Skin Skin: Negative non-healing lesions or rash Neuro Neuro: Negative for dizziness, lightheadedness, orthostatic symptoms, frequent falls, weakness or blurry vision Minor Hematologic/Lymphatic: Negative for easy bleeding Endo Endo: Positive for fatigue; negative for excessive sweating Psych Psych: Negative for anxiety or depression Allergy Allergy/Immunology: Negative for hives, Negative for rash Cardiology Exam Const Appearance: cooperative, healthy appearing, comfortable, well developed and well groomed Nutritional Appearance: average body habitus Orientation: alert, awake and oriented x3 Head Head: normal to inspection, normocephalic and atraumatic Ears: hearing grossly normal bilaterally Nose: external nose normal Mouth: oral mucosae normal Teeth and gingiva: fair dentition Eyes Eyelids: eyelids normal Conjunctivae: conjunctivae normal Pupils: PERRL EOM: EOM intact bilaterally Neck Neck: normal visual inspection and full ROM Carotids: normal carotid upstroke Chest Chest inspection: normal inspection of the chest, symmetric chest movement and normal respiratory effort Auscultation: Bilateral: Clear to Auscultation Cardio Palpation: normal PMI Rhythm: irregular rhythm Heart sounds: S1 normal and S2 normal GI GI: normal to inspection, soft and bowel sounds present Neuro General: alert, awake, oriented x3 and moves all extremities Skin Skin: no rashes or lesions noted Extremities Lower Extremity Edema: Trace: Bilateral Psych Psychological: normal affect Assessment & Plan 1. New onset atrial fibrillation I48.91 Plan He has been diagnosed with atrial fibrillation. Of note he is not having a rapid ventricular response. He is not on rate numbing medication. This does raise concern as to his underlying conduction system status. At the moment he will continue his anticoagulant therapy. He was asked to have further cardiovascular evaluation which will include an echocardiogram to reassess his atrial size as well as his ventricular wall motion and systolic function. He was also asked to have an exercise tolerance test/imaging study to assess for any obvious evidence of myocardial ischemia that would be contributing to any of his symptoms and/or findings. If his studies are unremarkable then hopefully he can proceed with further attempts at regaining sinus rhythm with a synchronized biphasic DC cardioversion in the near future. Orders Orders: 12 Lead EKG performed by [facility] Today Echo Complete Today Cardioversion 3 Weeks Nuclear Stress Test - Chemical Today 2. Premature atrial beat I49.1 Plan He does have a history of PACs and PVCs. At the moment he appears to be without any report of any other atrial or ventricular dysrhythmias. He will continue his current therapy and follow-up. Orders Orders: 12 Lead EKG performed by [facility] Today 3. Chest pain, unspecified type R07.9 Plan His chest discomfort may be related to his coughing episodes. However based upon the finding of his atrial dysrhythmia he was asked to have further evaluation with an exercise tolerance test/imaging study to evaluate for any obvious evidence of myocardial ischemia that would contribute to any of his symptoms or findings. 4. Cough R05 Plan He will continue evaluation for his cough with his other physicians. The present time it does not appear the atrial fibrillation is the etiology for his cough based upon having this in the past in sinus rhythm. There is a question is whether or not his pulmonary process is contributing to his atrial fibrillation. Plan Detail Additional Comments The above was discussed with the patient and spouse. They are agreeable to this approach. Thank you for allowing me to participate in the care of your patient. Please don't hesitate to call if any issues arise. This note was generated using a voice recognition system and there may be incorrect words, spelling or punctuation that were not noted when reviewing the office note prior to saving. Follow Up 6 Weeks (PFM) Coding Level of Care Code Off vis,new,level 5 Diagnoses New onset atrial fibrillation I48.91 Premature atrial beat I49.1 Chest pain, unspecified type R07.9 ??Chest pain type: unspecified Cough R05 Coding Level of Care Code Off vis,new,level 5 Diagnoses New onset atrial fibrillation I48.91 Premature atrial beat I49.1 Chest pain, unspecified type R07.9 ??Chest pain type: unspecified Cough R05 Supplemental Info Supplemental Information Diagnostics Electrocardiogram 11/27/18 Chest X-Ray 04/25/18 Pulmonary Pulmonary Function Test 02/20/18 11/27/18 3051 <Electronically signed by Jose Galvan MD> Date Jose Galvan MD Cosigner Signature: Date (if applicable) CC: Orlando Galvan MD ~ I have examined the patient the following changes are noted: The patient has undergone evaluation with transthoracic echocardiogram and an exercise tolerance test/imaging study as noted below Transthoracic echocardiogram: Left ventricular systolic function considered normal with an estimated LVEF 55% Mildly dilated right ventricle with mild global right ventricular systolic dysfunction Biatrial enlargement Mild MR Mild to moderate TR Borderline enlarged aortic root Estimated RV systolic pressure of 24 mmHg Please see official/complete report Stress Test Report Date: 12-15-18 Procedure: Pharmacologic stress nuclear imaging study Indications: Chest pain; atrial fibrillation Consent: Per the patient Procedure: The patient underwent pharmacologic (Regadenoson) evaluation with a peak heart rate of 100 beats per minute (72 %predicted maximal heart rate) and a peak blood pressure of 120/60 mmHg. The baseline ECG demonstrated atrial fibrillation; right IVCD pattern. The peak pharmacologic ECG demonstrated no obvious ECG changes. There was an occasional PVC during infusion and recovery. There was no complaint of chest discomfort during pharmacologic infusion or recovery. The examination was discontinued secondary to completion of protocol. Impression: 1. Pharmacologic (Regadenoson) evaluation 2. Peak pharmacologic ECG with no obvious ECG changes. 3. There was an occasional PVC during infusion and recovery. 4. Nuclear images pending Myocardial perfusion imaging study: Technique: The patient was injected with 12.0 millicuries of technetium 99m Cardiolite and subsequently rest SPECT Cardiolite nuclear imaging was obtained in the horizontal long, vertical long, and short axis views. The patient underwent pharmacologic (Regadenoson) evaluation with a peak heart rate of 100 beats per minute (72 % percent predicted maximal heart rate) and a peak blood pressure of 120/60 mmHg. The patient was injected with 36.0 millicuries of technetium 99m Cardiolite and subsequently stress SPECT Cardiolite nuclear imaging was obtained in the horizontal long, vertical long, and short axis views. A gated Cardiolite study at peak stress was obtained. Interpretation: Rest and stress SPECT Cardiolite nuclear imaging status post realignment, normalization, and attenuation correction demonstrate relative uniform tracer uptake and myocardial perfusion appearing within normal limits. There is end systolic thickening and brightening. The gated Cardiolite study demonstrates myocardial thickening and inward wall motion. The reported LVEF is 53 %. Impression: 1. Rest and stress SPECT Cardiolite nuclear imaging demonstrate relative uniform tracer uptake and myocardial perfusion appearing within normal limits. 2. The gated Cardiolite study reports an LVEF of 53 %. Overall, the present time, the patient will continue medical therapy. He will proceed with further evaluation care with synchronized biphasic DC cardioversion. The procedure and risks were discussed with the patient. He was agreeable to this approach.
--- NOTE | 2018-12-16 10:28 | PCM.OP.PRO ---
Procedure Report Date of Procedure: 12/16/18 CONSCIOUS SEDATION REPORT DATE OF SERVICE: December 16, 2018 BRIEF HISTORY OF PRESENT ILLNESS: The patient is an 83-year-old male who presented to [facility] for an elective outpatient cardioversion due to underlying atrial fibrillation. The patient has never previously undergone a cardioversion. He denies any previous anesthetic complications. He is currently anticoagulated on Xarelto. His last known ejection fraction was approximately 55%. He denies a history of obstructive sleep apnea, COPD or asthma. PHYSICAL EXAMINATION: VITAL SIGNS: Reviewed and were acceptable. GENERAL: The patient is a male, in no apparent distress, speaking in full sentences. HEENT: Normocephalic, atraumatic. Mucous membranes are moist and pink. Good mouth opening noted. Trachea is midline. CHEST: S1, S2 irregularly irregular. No murmurs, rubs or gallops were noted. LUNGS: Clear to auscultation bilaterally without appreciable wheezes, rales or rhonchi. ABDOMEN: Soft, nontender, nondistended. Positive bowel sounds. EXTREMITIES: There is no clubbing, cyanosis or edema. ASA Class: II DESCRIPTION OF PROCEDURE: After confirmation of informed consent, the patient's anesthesia plan was reviewed in detail. Propofol was chosen. Risks and benefits were reviewed and the patient agreed to proceed. At 1012, the patient was given 40 mg of propofol. The patient achieved an appropriate level of sedation and was given a 200 joule synchronized cardioversion by Dr. Galvan at the bedside. This was successful in achieving normal sinus rhythm. The patient was monitored until 1023, at which time he reached his baseline mental status and function. The patient tolerated the procedure well. COMPLICATIONS: None ESTIMATED BLOOD LOSS: None RECOMMENDATIONS: Okay to recover in usual fashion. Code Visit 9xxxx: Other Procedure See Report - [id number]
--- NOTE | 2018-12-16 11:05 | CARDIOVERS ---
Cardioversion Cardioversion: Date: 12-16-18 Procedure: Synchronized Biphasic DC Cardioversion Indications: Atrial fibrillation Consent: Per the Patient Anesthesia: per Dr. Thomas of pulmonology and critical care medicine with propofol 40 mg IV push total Procedure: Synchronized Biphasic DC Cardioversion: 200 J x1: Result: Sinus rhythm Complications: no apparent complications This note was generated with [email or web address] dictation software. It may contain incorrect words, spelling, and punctuation that were not noted in checking the note before signing.
== END ==
PROVIDERS: Family Provider Family Medicine; PCP Family Medicine; Referring Provider Internal Medicine Cardiovascular Disease; Visit Provider Internal Medicine Cardiovascular Disease
DX: I48.91 Unspecified atrial fibrillation (principal); I49.1 Atrial premature depolarization; R07.9 Chest pain, unspecified; R05 Cough; M19.90 Unspecified osteoarthritis, unspecified site; E66.9 Obesity, unspecified; Z68.27 Body mass index [BMI] 27.0-27.9, adult; Z79.01 Long term (current) use of anticoagulants; Z79.899 Other long term (current) drug therapy
CPT/HCPCS: 36415; 80048; 92960; 93005; J7040

== ENCOUNTER 2019-01-08 16:24 | Outpatient (RCR) | payer MEDICARE, OTHER, SELFPAY ==
[2018-12-15 10:51] VITALS: BMI 28.2
[2019-01-08 15:04] VITALS: BMI 27.7
--- NOTE | 2019-01-08 18:09 | ST ---
[facility] Speech Pathology [address] [place] [address] Modified Barium Swallow Study MR#: [id number] Acct: [id number] Name: EARL FORD Rep #: [id number] : [id number] From: Calixto Sorto M.A., CCC-ACCOUNTANCY PROFESSOR PRIMARY / SECONDARY DIAGNOSIS: dysphagia (R13.10) REFERRING PHYSICIAN: Dr. Humphrey Dickerson MD CURRENT DIET: regular textures, thin liquids DENTITION: WFL MENTAL STATUS: WNL RESPIRATORY STATUS: O2 via room air REASON FOR REFERRAL: The Patient is an 82 year old male referred for a modified barium swallow (MBS) study to objectively assess the Patients oropharyngeal swallow function under fluoroscopy secondary to concerns regarding dysphagia and aspiration and an association with his unexplained chronic coughing. MEDICAL HISTORY: Atrial contraction; atrial fibrillation; chronic cough; migraine without aura, kidney stones; acute lumbago; benign prostatic hyperplasia; bladder neck obstruction; diverticulosis of colon; obesity; osteoarthritis; polyneuropathy in other diseases classified elsewhere; restless leg syndrome; status post tonsillectomy and adenoidectomy; status post arthroscopy of right knee; status post colonoscopy; status post carpal tunnel release; status post total left hip replacement; status post right wrist fusion; status post TURP. PREVIOUS MODIFIED BARIUM SWALLOW STUDY: None. ADDITIONAL OBJECTIVE ASSESSMENT RESULTS: 02/20/2018 pulmonary functions test revealed irreversible mild large airways obstructive ventilatory defect with preserved diffusion capacity. ASSESSMENT PARAMETERS: The Patient participated in a Modified Barium Swallow (MBS) study on 12/08/2018. Dr. Ramirez was the radiologist present for this evaluation. This study was recorded in the lateral view and images were sent to PACs for storage. Scoring was completed through each trial using the 8-point Penetration-Aspiration Scale (PAS), and summarized via the Modified Barium Swallow Impairment Profile (MBSImP) and the Bolus Residue Scale (BRS), with severity scoring through the Dysphagia Severity Rating Scale (DSRS) and the Swallowing Performance Scale (PSP), and recommended diet textures through the International Dysphagia Diet Standardisation Initiative (IDDSI). RESULTS OF THE EVALUATION: The Patient presents with mild to moderate oropharyngeal dysphagia (DSRS: 3; SPS: 4) with results notable for pharyngeal dysmotility in addition to intermittent shallow penetration and inconsistent ejection of thin liquids without a clear etiology of cause. OBJECTIVE ASSESSMENT OF SWALLOW FUNCTION (QUANTITATIVE ? PER TRIAL): PENETRATION / ASPIRATION SCALE (CAPONE): 1 = does not enter airway 2 = enters airway/above vocal folds/ejected 3 = enters airway/above vocal folds/not ejected 4 = enters airway/contacts vocal folds/ejected 5 = enters airway/contacts vocal folds/not ejected 6 = enters airway/below vocal folds/ejected 7 = enters airway/below vocal folds/not ejected despite effort 8 = enters airway/below vocal folds/no effort PENETRATION / ASPIRATION SCALE (SCORE): Thin liquid - 5 mL tsp.: 1 Thin liquids via cup (single sip): 1 Thin liquids via cup (single sip): 1 Thin liquids via cup (sequential swallows): 3 Pudding via spoon: 1 Regular textured cookie: 1 Thin liquids via straw (single sip): 1 Thin liquids via straw (single sip): 1 Thin liquids via straw (sequential swallows): 2 OBJECTIVE ASSESSMENT OF SWALLOW FUNCTION (QUANTITATIVE ? AGGREGATE): MODIFIED BARIUM SWALLOW IMPAIRMENT PROFILE (MBSImP) LABIAL SEAL: 0 (of 4) no labial escape TONGUE CONTROL: 1 (of 3) lateral buccal cavity / floor of mouth BOLUS PREPARATION / MASTICATION: 0 (of 3) timely and efficient BOLUS TRANSPORT / LINGUAL MOTION: 3 (of 4) repetitive / disorganized motion ORAL RESIDUE: 1 (of 4) trace residue lining oral structures INITIATION OF PHARYNGEAL SWALLOW: 0 (of 4) posterior angle of ramus SOFT PALATE ELEVATION: 0 (of 4) no bolus between soft palate & pharyngeal wall LARYNGEAL ELEVATION: 0 (of 3) complete superior movement / approximation ANTERIOR HYOID EXCURSION: 1 (of 2) partial movement EPIGLOTTIC MOVEMENT: 1 (of 2) partial inversion LARYNGEAL VESTIBULE CLOSURE: 1 (of 2) incomplete closure PHARYNGEAL STRIPPING WAVE: 1 (of 2) present / diminished PE SEGMENT OPENIN (of 3) partial distension / duration / obstruction TONGUE BASE RETRACTION: 2 (of 4) narrow column of contrast PHARYNGEAL RESIDUE: 3 (of 4) majority of contrast remaining ESOPHAGEAL BOLUS CLEARANCE: could not view BOLUS RESIDUE SCALE (BRS): 5(of 6) residue on the posterior pharyngeal wall and piriform sinus DYSPHAGIA SEVERITY RATING SCALE (DSRS): 3 (mild-moderate) SWALLOWING PERFORMANCE SCALE (SPS): 4 (mild to moderate) OBJECTIVE ASSESSMENT OF SWALLOW FUNCTION (QUALITATIVE): ORAL PREPARATORY PHASE: sufficient mastication rate and quality; sufficient anterior oral containment during presentation / manipulation; preserved management of breathing / bolus formation. ORAL TRANSITIONAL PHASE: abnormal bolus manipulation / transportation with fragmented swallowing (piecemeal deglutition) and noted mild discoordinated lingual movements most prominent with more viscous textures; sufficient oral clearance; no presence of premature posterior bolus loss. PHARYNGEAL PHASE: no signs of pharyngeal dyssynchrony; reduction in hyolaryngeal excursion and duration resulting in suboptimal laryngeal vestibule closure / pressure / duration and inconsistent laryngeal vestibule pressure generated to expel penetrated material; pharyngeal dysmotility most prominently with semisolid and solid textures attributed to reduced tongue based retraction, reduced posterior pharyngeal stripping wave action, and reduced pharyngoesophageal segment opening, with consolidation within the vallecula pyriforms, and upper esophageal segment opening (noted post prandial return of semisolid bolus from the UES requiring Patient initiated expectoration); no signs of velopharyngeal impairments. ESOPHAGEAL PHASE: no obvious esophageal phase abnormalities observed. 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 What is the relation of the symptoms?) with the information available at the time of assessment. RESPONSE TO STRATEGIES: all deficits appeared to be managed successfully with reduction in bolus rate / volume adjustments, and diet texture adjustments, execution of liquid chasers following semisolid and solid ingestion. DYSPHAGIA ASSOCIATED MEDICAL CONSIDERATIONS / INTERVENTION CONSIDERATIONS: It is unclear as to if / how the Patients dysphagia is associated with his persistent coughing, as this was unrelenting prior to the assessment and following the assessment, with no change associated with findings under fluoroscopy, and sufficient post prandial pharyngeal clearance upon termination of the fluoroscopy unit. There are no clear etiological factors available upon review of the Patient?s medical records. There is a clear deficit in laryngeal valving / epiglottic deflection and pharyngeal constriction during deglutition, though would this be in response to potential pharyngeal irritation, or could this be a precipitating factor to his persistent coughing? The Patent may be considered to be at a higher risk of aspiration related medical complications / aspiration pneumonia / aspiration related pulmonary syndrome secondary to presence of dysphagia with pharyngeal phase impairment and the potential for tracheobronchial aspiration of more dense viscosities given the findings of pharyngeal dysmotility and the Patients advanced age (though he remains independent and functionally active). Would consider this Patient to be a high risk for malnutrition due to the rather significant amount of weight lost reported over the last 2-3 months (~15 lbs), and the Patients advanced age, the significance of dysphagia and pharyngeal phase impairments. The Patient may require intervention to reduce the risk of malnutrition, with considerations for food enrichment, and oral nutritional supplementation. Would consider a referral to a registered clinical dietitian. INTERVENTION RECOMMENDATIONS AND CONSIDERATIONS: The Patient would benefit from continued skilled speech-language intervention targeting diet texture management and training / implementation of recommended compensatory strategies; with considerations for training and implementation of oropharyngeal strengthening exercises to facilitate improved oropharyngeal strength and coordination, though it is unclear as to the anticipated benefits from strengthening exercises given the lack of clarity regarding etiological factors (pharyngeal irritation? undiagnosed etiological factor? mechanical factors? combination of the above?), will proceed with implementation unless further impute from the medical team is provided suggesting this approach is contraindicated and / or would be found to lack any anticipated medical benefit. POST ASSESSMENT EDUCATION: Results and recommendations were discussed at length with the Patient immediately following MBS completion, with the Patient verbalizing understanding and agreement with all recommendations and education provided. We discussed factors impacting effects of aspiration, to include: the quantity of aspiration, the depth of aspiration (trachea or distal airways), and the physical properties of the aspirate. We discussed consequences of oropharyngeal dysphagia, to include pulmonary complications from tracheobronchial aspiration; potential for airway obstruction / asphyxiation; inadequate oral intake because of dysphagia; reduced caloric intake resulting in unintentional and potentially medically complicating loss of weight; impairment in mental and physical condition; and potential complications in overall course of care. I provided brief overview of signs and symptoms of aspiration, with recommendations for the Patient to further discuss symptoms with the Patients primary care provider and / or his referring physician. DIET TEXTURE RECOMMENDATIONS: Will recommend a regular ? soft textured (IDDSI: 6), thin liquid diet (IDDSI: 0) diet RECOMMENDED COMPENSATORY STRATEGIES: Consider cutting tougher textures into bite sized pieces, reduced bolus volume / rate of ingestion, liquid chaser at reasonable intervals, seated upright at 90 degrees during PO intake, remain upright for 30-60 minutes post meal (GERD precaution), medications one at a time with purees. IMAGE COUNT: [id number] Calixto Sorto M.A., GREGORY-ROSMERY, CBIS MBSImP Certified, LSVT Certified [facility] Speech-Language Pathology Department [email or web address] 12/08/18 [id number] <Electronically signed by Calixto Sorto M.A., CCC-ACCOUNTANCY PROFESSOR> Date Calixto Sorto M.A., CCC-ACCOUNTANCY PROFESSOR Co-Signature Required for all Medicare patients Date/Time Co-Signature CC: ~
--- NOTE | 2019-01-08 18:25 | HP.SP.AD ---
History - History Date of Eval: 01/08/19 Medical Diagnosis (from RX): Atrial contraction; atrial fibrillation; chronic cough; migraine without au Date of Onset of Diagnosis: 12/08/18 Previous speech therapy: Yes Results: Pt had an outpatient MBS conducted by ENVIRONMENTAL RESEARCH SCIENTIST Calixto on 12/08/18. The Patient presents with mild to moderate oropharyngeal dysphagia (DSRS: 3; SPS: 4) with results notable for pharyngeal dysmotility in addition to intermittent shallow penetration and inconsistent ejection of thin liquids without a clear etiology of cause. Other Relevant Medical History/Diagnoses/Surgery: 02/20/2018 pulmonary functions test revealed irreversible mild large airways obstructive ventilatory defect with preserved diffusion capacity. Medications related to this diagnosis: Omeprazole was taken but ineffective and stopped. Smoking Status: Never smoker Hx Smoking: No Hx Tobacco Use: No - Pain Is pain an issue with your current prescribed condition?: No - Personal Occupation: retired Right Hearing Abillity: Normal Left Hearing Abillity: Normal Visual Assistive Devices: None, Glasses Patients Living Arrangements: With Significant Other Patient Allergies - Allergies Allergies ipratropium Adverse Reaction (Mild, Verified 01/08/19 15:03) Hives Objective Oral Motor - Oral Status Dentition: WNL - Labial Impairment: WNL Closure: WNL Pucker: WNL - Lingual Impairment: WNL Protrusion: WNL Retraction: WNL Lateralization: WNL - Jaw Impairment: WNL Opening: WNL Closing: WNL - Respiratory Status Respiratory Status: Room Air Objective Dysphagia - Administered by Administered by: Self - Thin Liquids Administred via: Cup Symptoms: Throat Clearing Laryngeal Elevation: WFL Oral Holding: No Gagging: No Comments: Throat clearing is chronic. - Regular Symptoms: Throat Clearing Laryngeal Elevation: WFL Oral Holding: No Gagging: No Comments: Throat clearing is chronic. Modified Barium Results Hx MBS Report Entered: Yes MBS Results (from prior exam): 01/08/19 18:09 Speech Therapy by Jennifer Rdz [facility] Speech Pathology [address] [place] [id number] Modified Barium Swallow Study MR#: [id number] Acct: [id number] Name: EARL FORD Rep #: [id number] : 1935 83 From: Calixto Sorto M.A. [facility]3]-ENVIRONMENTAL RESEARCH SCIENTIST PRIMARY / SECONDARY DIAGNOSIS: dysphagia (R13.10) REFERRING PHYSICIAN: Dr. Humphrey Dickerson MD CURRENT DIET: regular textures, thin liquids DENTITION: WFL MENTAL STATUS: WNL RESPIRATORY STATUS: O2 via room air REASON FOR REFERRAL: The Patient is an 82 year old male referred for a modified barium swallow (MBS) study to objectively assess the Patients oropharyngeal swallow function under fluoroscopy secondary to concerns regarding dysphagia and aspiration and an association with his unexplained chronic coughing. MEDICAL HISTORY: Atrial contraction; atrial fibrillation; chronic cough; migraine without aura, kidney stones; acute lumbago; benign prostatic hyperplasia; bladder neck obstruction; diverticulosis of colon; obesity; osteoarthritis; polyneuropathy in other diseases classified elsewhere; restless leg syndrome; status post tonsillectomy and adenoidectomy; status post arthroscopy of right knee; status post colonoscopy; status post carpal tunnel release; status post total left hip replacement; status post right wrist fusion; status post TURP. PREVIOUS MODIFIED BARIUM SWALLOW STUDY: None. ADDITIONAL OBJECTIVE ASSESSMENT RESULTS: 02/20/2018 pulmonary functions test revealed irreversible mild large airways obstructive ventilatory defect with preserved diffusion capacity. ASSESSMENT PARAMETERS: The Patient participated in a Modified Barium Swallow (MBS) study on 12/08/2018. Dr. Ramirez was the radiologist present for this evaluation. This study was recorded in the lateral view and images were sent to PACs for storage. Scoring was completed through each trial using the 8-point Penetration-Aspiration Scale (PAS), and summarized via the Modified Barium Swallow Impairment Profile (MBSImP) and the Bolus Residue Scale (BRS), with severity scoring through the Dysphagia Severity Rating Scale (DSRS) and the Swallowing Performance Scale (PSP), and recommended diet textures through the International Dysphagia Diet Standardisation Initiative (IDDSI). RESULTS OF THE EVALUATION: The Patient presents with mild to moderate oropharyngeal dysphagia (DSRS: 3; SPS: 4) with results notable for pharyngeal dysmotility in addition to intermittent shallow penetration and inconsistent ejection of thin liquids without a clear etiology of cause. OBJECTIVE ASSESSMENT OF SWALLOW FUNCTION (QUANTITATIVE ? PER TRIAL): PENETRATION / ASPIRATION SCALE (CAPONE): 1 = does not enter airway 2 = enters airway/above vocal folds/ejected 3 = enters airway/above vocal folds/not ejected 4 = enters airway/contacts vocal folds/ejected 5 = enters airway/contacts vocal folds/not ejected 6 = enters airway/below vocal folds/ejected 7 = enters airway/below vocal folds/not ejected despite effort 8 = enters airway/below vocal folds/no effort PENETRATION / ASPIRATION SCALE (SCORE): Thin liquid - 5 mL tsp.: 1 Thin liquids via cup (single sip): 1 Thin liquids via cup (single sip): 1 Thin liquids via cup (sequential swallows): 3 Pudding via spoon: 1 Regular textured cookie: 1 Thin liquids via straw (single sip): 1 Thin liquids via straw (single sip): 1 Thin liquids via straw (sequential swallows): 2 OBJECTIVE ASSESSMENT OF SWALLOW FUNCTION (QUANTITATIVE ? AGGREGATE): MODIFIED BARIUM SWALLOW IMPAIRMENT PROFILE (MBSImP) LABIAL SEAL: 0 (of 4) no labial escape TONGUE CONTROL: 1 (of 3) lateral buccal cavity / floor of mouth BOLUS PREPARATION / MASTICATION: 0 (of 3) timely and efficient BOLUS TRANSPORT / LINGUAL MOTION: 3 (of 4) repetitive / disorganized motion ORAL RESIDUE: 1 (of 4) trace residue lining oral structures INITIATION OF PHARYNGEAL SWALLOW: 0 (of 4) posterior angle of ramus SOFT PALATE ELEVATION: 0 (of 4) no bolus between soft palate & pharyngeal wall LARYNGEAL ELEVATION: 0 (of 3) complete superior movement / approximation ANTERIOR HYOID EXCURSION: 1 (of 2) partial movement EPIGLOTTIC MOVEMENT: 1 (of 2) partial inversion LARYNGEAL VESTIBULE CLOSURE: 1 (of 2) incomplete closure PHARYNGEAL STRIPPING WAVE: 1 (of 2) present / diminished PE SEGMENT OPENIN (of 3) partial distension / duration / obstruction TONGUE BASE RETRACTION: 2 (of 4) narrow column of contrast PHARYNGEAL RESIDUE: 3 (of 4) majority of contrast remaining ESOPHAGEAL BOLUS CLEARANCE: could not view BOLUS RESIDUE SCALE (BRS): 5(of 6) residue on the posterior pharyngeal wall and piriform sinus DYSPHAGIA SEVERITY RATING SCALE (DSRS): 3 (mild-moderate) SWALLOWING PERFORMANCE SCALE (SPS): 4 (mild to moderate) OBJECTIVE ASSESSMENT OF SWALLOW FUNCTION (QUALITATIVE): ORAL PREPARATORY PHASE: sufficient mastication rate and quality; sufficient anterior oral containment during presentation / manipulation; preserved management of breathing / bolus formation. ORAL TRANSITIONAL PHASE: abnormal bolus manipulation / transportation with fragmented swallowing (piecemeal deglutition) and noted mild discoordinated lingual movements most prominent with more viscous textures; sufficient oral clearance; no presence of premature posterior bolus loss. PHARYNGEAL PHASE: no signs of pharyngeal dyssynchrony; reduction in hyolaryngeal excursion and duration resulting in suboptimal laryngeal vestibule closure / pressure / duration and inconsistent laryngeal vestibule pressure generated to expel penetrated material; pharyngeal dysmotility most prominently with semisolid and solid textures attributed to reduced tongue based retraction, reduced posterior pharyngeal stripping wave action, and reduced pharyngoesophageal segment opening, with consolidation within the vallecula pyriforms, and upper esophageal segment opening (noted post prandial return of semisolid bolus from the UES requiring Patient initiated expectoration); no signs of velopharyngeal impairments. ESOPHAGEAL PHASE: no obvious esophageal phase abnormalities observed. 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 What is the relation of the symptoms?) with the information available at the time of assessment. RESPONSE TO STRATEGIES: all deficits appeared to be managed successfully with reduction in bolus rate / volume adjustments, and diet texture adjustments, execution of liquid chasers following semisolid and solid ingestion. DYSPHAGIA ASSOCIATED MEDICAL CONSIDERATIONS / INTERVENTION CONSIDERATIONS: It is unclear as to if / how the Patients dysphagia is associated with his persistent coughing, as this was unrelenting prior to the assessment and following the assessment, with no change associated with findings under fluoroscopy, and sufficient post prandial pharyngeal clearance upon termination of the fluoroscopy unit. There are no clear etiological factors available upon review of the Patient?s medical records. There is a clear deficit in laryngeal valving / epiglottic deflection and pharyngeal constriction during deglutition, though would this be in response to potential pharyngeal irritation, or could this be a precipitating factor to his persistent coughing? The Patent may be considered to be at a higher risk of aspiration related medical complications / aspiration pneumonia / aspiration related pulmonary syndrome secondary to presence of dysphagia with pharyngeal phase impairment and the potential for tracheobronchial aspiration of more dense viscosities given the findings of pharyngeal dysmotility and the Patients advanced age (though he remains independent and functionally active). Would consider this Patient to be a high risk for malnutrition due to the rather significant amount of weight lost reported over the last 2-3 months (~15 lbs), and the Patients advanced age, the significance of dysphagia and pharyngeal phase impairments. The Patient may require intervention to reduce the risk of malnutrition, with considerations for food enrichment, and oral nutritional supplementation. Would consider a referral to a registered clinical dietitian. INTERVENTION RECOMMENDATIONS AND CONSIDERATIONS: The Patient would benefit from continued skilled speech-language intervention targeting diet texture management and training / implementation of recommended compensatory strategies; with considerations for training and implementation of oropharyngeal strengthening exercises to facilitate improved oropharyngeal strength and coordination, though it is unclear as to the anticipated benefits from strengthening exercises given the lack of clarity regarding etiological factors (pharyngeal irritation? undiagnosed etiological factor? mechanical factors? combination of the above?), will proceed with implementation unless further impute from the medical team is provided suggesting this approach is contraindicated and / or would be found to lack any anticipated medical benefit. POST ASSESSMENT EDUCATION: Results and recommendations were discussed at length with the Patient immediately following MBS completion, with the Patient verbalizing understanding and agreement with all recommendations and education provided. We discussed factors impacting effects of aspiration, to include: the quantity of aspiration, the depth of aspiration (trachea or distal airways), and the physical properties of the aspirate. We discussed consequences of oropharyngeal dysphagia, to include pulmonary complications from tracheobronchial aspiration; potential for airway obstruction / asphyxiation; inadequate oral intake because of dysphagia; reduced caloric intake resulting in unintentional and potentially medically complicating loss of weight; impairment in mental and physical condition; and potential complications in overall course of care. I provided brief overview of signs and symptoms of aspiration, with recommendations for the Patient to further discuss symptoms with the Patients primary care provider and / or his referring physician. DIET TEXTURE RECOMMENDATIONS: Will recommend a regular ? soft textured (IDDSI: 6), thin liquid diet (IDDSI: 0) diet RECOMMENDED COMPENSATORY STRATEGIES: Consider cutting tougher textures into bite sized pieces, reduced bolus volume / rate of ingestion, liquid chaser at reasonable intervals, seated upright at 90 degrees during PO intake, remain upright for 30-60 minutes post meal (GERD precaution), medications one at a time with purees. IMAGE COUNT: [id number] Calixto Sorto M.A., CCC-ENVIRONMENTAL RESEARCH SCIENTIST, CBIS MBSImP Certified, LSVT Certified [facility] Speech-Language Pathology Department [email or web address] 12/08/18 [id number] <Electronically signed by Calixto Sorto M.A. CCC-ENVIRONMENTAL RESEARCH SCIENTIST> Date Calixto Sorto M.A., CCC-ENVIRONMENTAL RESEARCH SCIENTIST Co-Signature Required for all Medicare patients Date/Time Co-Signature CC: ~ Initialized on 01/08/19 18:09 - END OF NOTE Dysphagia Assessment - Impact Impact on Safety & Functioning: Risk for Inadequate Nutrition/Hydration Comments: See MBS - Recommendations Swallowing Treatment: Yes - Diet Texture Recommendations Solids Other: Regular Liquids: Thin - Safety Saftey Precautions/Swallowing Recommendations (Check all that Apply): Upright Position at Least 30 Minutes After Meals, Small Sips & Bites when Eating, Alternate Liquids & Solids Plan - Plan Plan: Pt will be seen for oropharyngeal exercises and possible repeat MBS if warranted. Oropharyngeal exercises sent home with pt to conduct at home 3x/day 10x each. Pt has chosed to wait till ENVIRONMENTAL RESEARCH SCIENTIST Calixto returns from paternity leave; therefore, there will be gap in services. Pt explained this and stated understanding. - Recommendations MBS: No Treatment Warranted: Yes - Frequency Frequency: 1x/Week Duration: 4-6 Months - Prognosis Prognosis: Good - Goals that are Established: Determination:: Goals will be added/modified as deemed necessary and appropriate. Therapy will be discontinued when results of re-evaluation indicate therapy is no longer needed or lack of progress has been documented. - Goal #1-5 Goal #1: Pt will continue to swallow least restrictive diet of regular/thin textures using compensatory strategies without any s/s of penetration/aspiration. Goal #2: Pt will complete oropharyngeal exercises independently and explain the reasoning behind exercises. Goal #3: Pt will complete Modified Barium Swallow (MBS) if warranted for additional or updated imaging. Education - Patient has Indicated that the Following Identified Educational Needs: None The Patient has indicated that they have no educational or learning abilities that may effect their care.: Yes - Patient Instruction Patient Education: Treatment Plan, Home Exercise Program Person Taught: Patient Teaching Method: Demonstration, Handout Response to teaching: Return demonstration, Verbalize understanding
--- NOTE | 2019-03-27 19:02 | HP.SP.DC_ITS ---
ST Discharge Summary - Discharged: Discharge: The Patient is an 83 year old male who attended 1 skilled speech- language intervention session spanning from 01/08/2019 to 03/26/2019 targeting mild to moderate oropharyngeal dysphagia. The Patient participated in a 12/08/2018 MBS revealing mild to moderate oropharyngeal dysphagia (DSRS: 3; SPS: 4) with results notable for pharyngeal dysmotility in addition to intermittent shallow penetration and inconsistent ejection of thin liquids without a clear etiology of cause. Following the initial treatment session, the Patient did not attend 3 additionally scheduled sessions, with the Patient subsequently discharge from the caseload per the facilities attendance policy, though I would gladly re-initiate intervention as needed moving forward.
== END 2019-01-08 19:00 | disposition home or self-care (01) ==
LOC: SP 16:24
PROVIDERS: Family Provider Family Medicine; PCP Family Medicine; Referring Provider Otolaryngology; Visit Provider Otolaryngology
DX: R13.10 Dysphagia, unspecified (principal)
CPT/HCPCS: 92610

== ENCOUNTER → 2019-01-21 06:53 | Outpatient (CLI) | payer MEDICARE, OTHER, SELFPAY ==
[2018-12-15 10:51] VITALS: BMI 28.2
[2019-01-08 15:04] VITALS: BMI 27.7
--- NOTE | 2019-01-21 15:08 | PFTCOMP ---
COMPLETE PULMONARY FUNCTION TEST INTERPRETATION Brief HPI: Patient is an 83 year old -[place] male, currently under the care of myself, who presents to [facility] for complete pulmonary function tests secondary to diagnosis of cough. Respiratory therapist reports good effort and reproducible results. Interpretation: Forced expiration spirometry shows a mild large airways obstructive ventilatory defect with an FEV1 of 93% predicted. There is no significant bronchodilator response by strict ATS criteria. Spirograms are of good quality and plateau slowly, indicating slowly emptying areas of the lungs. The respiratory flow volume loop shows decreased expiratory flow rates at all lung volumes consistent with airway obstruction. Lung volumes by body plethysmography show a normal total lung capacity at 8.1 L, 111% predicted. All other lung volumes are within normal limits. Diffusion capacity by carbon monoxide is normal at 103% predicted. The airway resistance is normal. Compared to previous pulmonary function tests from 02/20/2018, there has been no significant change. Impression: Irreversible mild large airways obstructive ventilatory defect with preserved diffusion capacity
== END ==
PROVIDERS: Family Provider Family Medicine; PCP Family Medicine; Referring Provider Internal Medicine Critical Care Medicine; Visit Provider Internal Medicine Critical Care Medicine
DX: R05 Cough (principal)
CPT/HCPCS: 94060; 94726; 94729

== ENCOUNTER → 2019-08-07 14:39 | Outpatient (CLI) | payer MEDICARE, SELFPAY ==
[2019-08-07 13:25] VITALS: BMI 29.0
[2019-08-07 17:09] LABS: AST(SGOT) 19 U/L (15-37); Alanine Aminotransfer ALT/SGPT 31 U/L (16-61); Alkaline Phosphatase 75 U/L (45-117); Bilirubin, Direct 0.22 mg/dL (0.00-0.30); Globulin 3.4 g/dL (2.2-4.2); Protein, Total 7.4 g/dL (6.4-8.2); T4 Total, Thyroxin 11.3 ug/dL (4.5-12.1); Thyroid Stim Hormone (TSH) 1.91 uIU/mL (0.358-3.74)
== END ==
PROVIDERS: PCP Family Medicine; Referring Provider Internal Medicine Cardiovascular Disease; Visit Provider Internal Medicine Cardiovascular Disease
DX: I48.0 Paroxysmal atrial fibrillation (principal); I49.1 Atrial premature depolarization
CPT/HCPCS: 36415; 80076; 84436; 84443

== ENCOUNTER → 2019-08-25 10:54 | Outpatient (CLI) | payer MEDICARE, SELFPAY ==
[2019-08-07 13:25] VITALS: BMI 29.0
== END ==
PROVIDERS: PCP Family Medicine; Referring Provider Internal Medicine Cardiovascular Disease; Visit Provider Internal Medicine Cardiovascular Disease
DX: I48.0 Paroxysmal atrial fibrillation (principal); I49.1 Atrial premature depolarization
CPT/HCPCS: 93225; 93226

== ENCOUNTER → 2019-08-26 08:58 | Outpatient (CLI) | payer MEDICARE, SELFPAY ==
[2019-01-27 09:58] VITALS: BMI 28.0
[2019-08-07 13:25] VITALS: BMI 29.0
--- NOTE | 2019-08-26 14:05 | NEURO_ITS ---
NCS and/or EMG Patient Report Ordering Doctor: Nilsa Barton DATE OF SERVICE: 08/26/19 Gwyn Sinha is an 83-year-old male presents for electrodiagnostic testing of the lower limbs. He reports burning and warm feeling in both lower legs. Electrodiagnostic findings: Peroneal motor nerve demonstrates normal distal late ncy, amplitude and conduction velocity bilaterally. Tibial motor responses within normal limits bilaterally. F waves are within normal limits. Prolonged superficial peroneal latency noted bilaterally. Borderline prolonged right sural latency. Plantar responses are within normal limits. Prolonged H reflex noted bilaterally. On needle EMG, all muscles tested in the lower limb showed no evidence of denervation with normal motor unit action potentials. Electrodiagnostic impression: This is an abnormal study in the lower limbs 1. Electrodiagnostic findings demonstrate a mild polyneuropathy, with involvement of sensory nerve fibers. 2. No electrodiagnostic evidence is noted for lumbosacral radiculopathy. 3. No electrodiagnostic evidence is noted for myopathy. If there are any further questions, please not hesitate to contact me.
== END ==
PROVIDERS: PCP Family Medicine; Referring Provider Nurse Practitioner Family; Visit Provider Nurse Practitioner Family
DX: G62.89 Other specified polyneuropathies (principal); R20.9 Unspecified disturbances of skin sensation; G25.81 Restless legs syndrome
CPT/HCPCS: 95886; 95913

== ENCOUNTER 2019-11-07 16:21 | Observation (INO) | payer MEDICARE, SELFPAY ==
[2019-08-07 13:25] VITALS: BMI 29.0
[2019-11-07 16:22] VITALS: BP 129/72; PULSE 56; RESP 14; TEMP 36.9; O2SAT 99; BMI 28.9
--- NOTE | 2019-11-07 16:42 | EKG12_ITS ---
Test Reason : PALP Blood Pressure : / mmHG Vent. Rate : 056 BPM Atrial Rate : 056 BPM P-R Int : 286 ms QRS Dur : 116 ms QT Int : 486 ms P-R-T Axes : 077 -70 028 degrees QTc Int : 468 ms Sinus bradycardia with sinus arrhythmia with 1st degree A-V block Left axis deviation Incomplete left bundle branch block Abnormal ECG Confirmed by CLAUDIO SHINE, PRATIBHA ([id number]), technical writer and editor ODIN BERGER ([id number]) on 11/10/2019 7:48:35 AM Referred By: Yary Brown Confirmed By:PRATIBHA SNYDER MD
--- NOTE | 2019-11-07 16:42 | RAD_ITS ---
STUDY: X-RAY CHEST REASON FOR EXAM: Male, 83 years old. Shortness of breath, a-fib, fatigue. TECHNIQUE: Frontal view of the chest COMPARISON: April 25 2018 FINDINGS: There are ill-defined basilar opacities, possibly viral pneumonia versus artifact versus atelectasis. There is no pneumothorax, pulmonary edema or pleural effusions. Cardiac size is upper limits of normal, possibly magnified by technique. Osseous structures are intact. RAD/Chest 1 View (Portable) IMPRESSION: Questionable atelectasis, versus viral pneumonia versus artifact due to low inspiratory volumes. Recommend confirmatory imaging. Electronically Signed: Gabbi Chandler, at 17:58 EDT Tel , Service support ,
[2019-11-07 17:23] LABS: Absolute Lymphocyte Count 1.03 X10^3/uL (0.83-4.51); Absolute Neutrophil Count 4.1 X10^3/uL (2.0-7.7); Basophil# 0.05 X10^3/uL; Basophil% 0.8 % (0-1); Eosinophil# 0.31 X10^3/uL; Hematocrit 43.1 % (40-54); Hemoglobin 14.5 g/dL (13.0-16.5); Lymphocyte # 1.03 X10^3/ul (4.0); Lymphocyte % 16.5 % (19-41); Mean Corp Hgb Conc 33.6 g/dL (32-36); Mean Corpuscular Hgb 32.7 pg (27.0-32.0); Mean Corpuscular Volume 97.1 fL (80-94); Mean Platelet Vol. 10.7 fl (6.2-12.0); Monocyte# 0.74 X10^3/uL; Monocyte% 11.8 % (0-10); NRBC Flagged by Analyzer 0 % (0-5); Neutrophil # 4.11 X10^3/uL (2.7-7.7); Neutrophil % 65.6 % (47-70); Platelet Count 191 K/mm3 (150-450); RBC Distribution Width SD 46.5 fl (35.1-43.9); Red Blood Count 4.44 M/mm3 (4.6-6.2); White Blood Count 6.3 K/mm3 (4.4-11.0)
--- NOTE | 2019-11-07 17:27 | ED.VIS.GEN ---
History of Present Illness Informant: Patient Onset: Yesterday Context: Gradual Onset Timing: Continuous Quality: palpitations Location: chest Current Severity: Mild Maximum Severity: Severe Worsened by: activity Relieved by: rest Associated Symptoms: lightheadedness Prior similar symptoms: Yes Recent Illness/Hospitalization: No <Benitez White - Last Filed: 11/07/19 17:27> <Pau Cardenas - Last Filed: 11/07/19 21:02> Chief Complaint: Palpitations Past Medical History Prior records reviewed: Yes Past Medical History: - - Paroxysmal atrial fibrillation Surgical History: noncontributory Lives: With Family Smoking Status: Never smoker Alcohol: None Drugs: None <Benitez White - Last Filed: 11/07/19 17:27> - Family History Paternal Family History: Family History (Last Reviewed 08/07/19 @ 13:30 by Macrina Burt) Sister Breast cancer Family History: Reports: - - Father of pneumonia after hip surgery at age of 97. <Pau Cardenas - Last Filed: 11/07/19 21:02> - Allergies and Home Meds Allergies/Adverse Reactions: Allergies ipratropium Adverse Reaction (Mild, Verified 11/07/19 16:22) Hives Review of Systems All systems negative except as indicated General: Denies: Chills, Fever, Sweats Eyes: Denies: Visual changes - bilaterally, Diplopia ENT: Denies: Rhinorrhea, Sore throat Cardiovascular: Reports: Palpitations. Denies: Chest pain, Heart racing Respiratory: Denies: Dyspnea, Cough, Sputum, Dyspnea on exertion, Orthopnea Gastrointestinal: Denies: Abdominal pain, Nausea, Vomiting, Diarrhea, Melena, Hematochezia Genitourinary: Denies: Dysuria, Hematuria, Frequency Musculoskeletal: Denies: Back pain, Extremity Pain Skin: Denies: Rash, Wounds Neurological: Denies: Headache, Weakness, Numbness <ChristopherBenitez - Last Filed: 11/07/19 17:27> Physical Exam Vital Signs/Narrative: Vital Signs Temp Pulse Resp BP Pulse Ox 11/07/19 16:22 98.5 F 56 L 14 129/72 H 99 Inital Vital Signs reviewed: Yes General: Well nourished, Well developed, No Acute Distress Head: Normocephalic, Atraumatic Eyes: Perrl, EOMI ENT: Moist mucous membranes, No rhinorrhea Neck: Supple, Nontender Cardiovascular: Regular rate, Regular rhythm, No murmurs Respiratory: No distress, CTA bilaterally, Chest nontender Abdomen: Soft, Nontender, Nondistended, Normal bowel sounds Back: Nontender, Normal Inspection Extremities: Nontender, No edema Skin: Normal color, No rash Neurological: Alert, Oriented x3, Cranial nerves II-XII grossly intact, Normal Strength, Normal Sensation Psychological: Normal affect, Normal Mood <Benitez White - Last Filed: 11/07/19 17:27> Diagnostic/Tx/Re-eval - Medical Decision Making I have personally performed a [id number] assessment of the patient and have reviewed the PA note. My morales findings include: Vital signs are stable. Heart is regular and bradycardic. Lungs are clear and equal bilaterally. CBC, chemistries unremarkable. Troponin is negative. Chest x-ray shows questionable atelectasis, versus viral pneumonia versus artifact due to low inspiratory volumes. Recommend confirmatory imaging. Patient has no fever or cough. Covid test was sent. He states he has felt fatigued and short of breath. He states he has been feeling very sweaty with ambulation. He mowed the lawn yesterday and felt very fatigued and sweaty with this. He states this is unusual for him. He had another episode today after walking 40 feet he became diaphoretic. He denies chest pain. Discussed with Dr. Galvan. Patient will be observed overnight. <Pau Cardenas - Last Filed: 11/07/19 21:02>
[2019-11-07 17:28] LABS: Anion Gap 6 (5-15); BUN 18 mg/dL (7-18); BUN/Creat Ratio 15.7 RATIO (10-20); Calcium,Total 8.8 mg/dL (8.5-10.1); Chloride 105 mmol/L (98-107); Creatinine, Serum 1.15 mg/dL (0.70-1.30); EST Glomerular Filtration Rate 64 mL/min (>60); Est Glom Filt Rate - Afr Amer 78 mL/min (>60); Estimated Creatinine Clearance 56.59 ml/min; Glucose 87 mg/dL (74-106); Potassium 4.1 mmol/L (3.5-5.1); Sodium Level 139 mmol/L (136-145)
[2019-11-07 17:45] VITALS: O2SAT 97
--- NOTE | 2019-11-07 19:00 | PCM.HP.STD ---
Problem List (1) Paroxysmal atrial fibrillation Status: Chronic Comment: DCCV on 12/16/2018; (2) Dysphagia causing pulmonary aspiration with swallowing Status: Chronic (3) Premature atrial contraction Status: Acute History of Present Illness Date of Admission: 11/07/19 Chief Complaint: Irregular heartbeat for last 2 days The patient is a 83 year old M with history of paroxysmal A. fib came to ED for irregular heartbeat along with fatigue. Patient states sometimes he has to take deep breath but when asked about difficulty in breathing/consults breathing, he answered in negative. No fever or chills. Denies chest pain or pressure. Denies recent flulike illness. He states, he feels sometimes extra heart beat followed by a pause and then 2 quick beats and then back to normal rhythm. The patient has history of paroxysmal A. fib status post cardioversion in December 2018 and is on amiodarone, rivaroxaban and Toprol XL. In ED, heart rate is in upper 55, blood pressure 154/64. No hypoxia, tachypnea or obvious shortness of breath. EKG shows sinus bradycardia at 56 beats minute with sinus arrhythmia, first-degree AV block, LAD. QTc interval 468 ms. Previous EKG of December 2018 shows sinus rhythm at 63 bpm with bifascicular block RBBB plus LAFB Chest x-ray independently reviewed and seems atelectasis in bilateral lung bases. Patient does not have clinical signs and symptoms of bronchitis or pneumonia. [] Past Medical History Past Medical History (Chronic Problems): Chronic Problems (Last Reviewed 08/07/19 @ 13:30 by Macrina Burt) Paroxysmal atrial fibrillation (Chronic) DCCV on 12/16/2018; Dysphagia causing pulmonary aspiration with swallowing (Chronic) Medical History: Medical History (Last Reviewed 08/07/19 @ 13:30 by Macrina Burt) Paroxysmal atrial fibrillation (Acute) I48.0 DCCV on 12/16/2018; Premature atrial contraction (Chronic) I49.1 Cough R05 History of migraine Z86.69 Kidney stones N20.0 Lumbago M54.5 BPH (benign prostatic hyperplasia) N40.0 Bladder neck obstruction N32.0 Diverticulosis of colon K57.30 Migraine without aura G43.009 Obesity E66.9 Osteoarthritis M19.90 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 G63 Restless leg syndrome G25.81 History of cardioversion Onset Date: ~12/16/18 Z98.890 New onset atrial fibrillation (Inactive) I48.91 Allergies ipratropium Adverse Reaction (Mild, Verified 11/07/19 16:22) Hives Home Medications: Ambulatory Orders Medication Instructions Recorded Cholecalciferol (Vitamin D3) 1,000 unit PO DAILY 04/16/13 [Vitamin D3] cyanocobalamin (vitamin B-12) 1,000 mcg PO DAILY 11/18/18 1,000 mcg capsule multivitamin 1 tab PO DAILY 01/08/19 rivaroxaban 20 mg tablet 20 mg PO DAILY #90 tab 07/27/19 gabapentin 100 mg capsule 100 mg PO QHS 08/07/19 amiodarone 200 mg tablet 100 mg PO DAILY #30 tab 08/27/19 metoprolol succinate 25 mg 12.5 mg PO DAILY #90 tab 08/27/19 tablet,extended release 24 hr Surgical History: Surgical History (Last Reviewed 08/07/19 @ 13:30 by Macrina Burt) H/O adenoidectomy Z90.89 H/O arthroscopy of right knee Z98.890 2005 H/O colonoscopy Z98.890 1998, 2011 History of ankle surgery Z98.890 History of carpal tunnel release Z98.890 Right History of tonsillectomy Z90.89 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 Review of Systems Constitutional: Denies: Chills, Fever, Weight Change HEENT: Denies: Head Aches, Sinus Congestion, Sinus Drainage Cardiovascular: Denies: Chest Pain, Chest Pressure, Chest Tightness, Palpitations Respiratory: Denies: Cough, Hemoptysis, Pleuritic Pain, Shortness of breath at rest, Sputum production Gastrointestinal: Denies: Abdominal Pain, Constipation, Diarrhea, Hematemesis, Hematochezia, Nausea, Melena, Vomiting Genitourinary: Denies: Dysuria, Frequency, Hematuria Musculoskeletal: Denies: Joint Pain, Joint Tenderness Skin: Denies: Rash, Wounds Neurological: Denies: Numbness, Tingling, Focal weakness Psychiatric: Denies: Anxiety, Depression, Homicidal Ideations, Suicidal Ideations Hematologic/ Lymphatic: Denies: Easy Bruising, Easy Bleeding VTE Information - Inpt Only VTE Present on Admission: No VTE Mechan Device Prophylaxis: None VTE Pharm Prophylaxis ordered?: Yes - Physical Exam Vitals/I&O's: Vital Signs Temp Pulse Resp BP Pulse Ox 98.5 F 56 L 14 129/72 H 99 11/07/19 16:22 11/07/19 16:22 11/07/19 16:22 11/07/19 16:22 11/07/19 16:22 Weight: 225 lb 8.526 oz Body Mass Index (BMI) 28.9 General: Alert, Oriented x3, Cooperative HEENT: Atraumatic, PERRLA, EOMI, Normocephalic Oral: No Gingival or Mucosal Lesions/ Ulcerations, Dry Mucosa Neck: Supple, No JVD, Negative Carotid Bruits Lungs: Clear to auscultation, No rhonchi, No wheeze, No rales, Diminished - Air entry diminished in bilateral lung bases Cardiovascular: Normal S1, Normal S2, No murmurs, Bradycardic, Irregular Rate - Sinus arrhythmia Abdomen: Bowel Sounds Present, Soft, Non Tender, Non-Distended Extremities: No edema, Capillary Refill Less than 3 Seconds Skin: No rashes, No breakdown Musculoskeletal: No Tenderness to Palpation of Joints or Extremities, Arthritic Changes Neurological: Cranial nerves II-XII grossly intact Psych/Mental Status: Normal Affect, Appropriate Laboratory Results 11/07/19 17:03: WBC 6.3, RBC 4.44 L, Hgb 14.5, Hct 43.1, MCV 97.1 H, MCH 32.7 H, MCHC 33.6, RDW Std Deviation 46.5 H, RDW Coeff of Marilee 13.0, Plt Count 191, MPV 10.7, Immature Gran % (Auto) 0.300, Neut % (Auto) 65.6, Lymph % (Auto) 16.5 L, [place] % (Auto) 11.8 H, Eos % (Auto) 5.0, Baso % (Auto) 0.8, Absolute Neuts (auto) 4.1, Absolute Lymphs (auto) 1.03, Nucleated RBC % 0 11/07/19 17:03: Sodium 139, Potassium 4.1, Chloride 105, Carbon Dioxide 28.0, Anion Gap 6, BUN 18, Creatinine 1.15, Estim Creat Clear Calc 56.59, Est GFR (MDRD) Af Amer 78, Est GFR (MDRD) Non-Af 64, BUN/Creatinine Ratio 15.7, Glucose 87, Calcium 8.8, Troponin I < 0.015 11/07/19 17:03: Total Bilirubin Pending, Direct Bilirubin Pending, AST Pending, ALT Pending, Alkaline Phosphatase Pending, Total Protein Pending, Albumin Pending, TSH Pending Assessment/Plan All Active Problems (Last Reviewed 08/07/19 @ 13:30 by Macrina Burt) Premature atrial contraction (Acute) The patient is a 83 year old M with history of paroxysmal A. fib came to ED for irregular heartbeat along with fatigue, premature heartbeat with compensatory pause. EKG shows sinus bradycardia at 56 beats minute with sinus arrhythmia, first-degree AV block, LAD. QTc interval 468 ms. Previous EKG of December 2018 shows sinus rhythm at 63 bpm with bifascicular block RBBB plus LAFB Chest x-ray independently reviewed and seems atelectasis in bilateral lung bases. Patient does not have clinical signs and symptoms of bronchitis or pneumonia. [] 1. Arrhythmia: Sinus rhythm with PACs/PVCs with history of proximal A. fib status post cardioversion: Patient is being admitted in PCU for observation on lunchroom monitor. Cycle cardiac enzymes. Hold Xarelto. Cardiology consult requested to Dr. Galvan. Patient had 2D echo done in December 2018 reported below. It is overall suggestive of mild chronic HFpEF/diastolic heart failure and mild right ventricular failure. Interpretation Summary Left ventricular systolic function is normal. The estimated ejection fraction is 55 %. Mildly dilated right ventricle. Mild global right ventricular systolic dysfunction. The left atrium is moderately enlarged. The right atrium is severely enlarged. Mild (1+) mitral valve insufficiency. Mild to moderate (1-2+) tricuspid valve insufficiency. Mild focal aortic valve calcification. Trivial aortic valve insufficiency. Trivial eccentric pulmonic valve insufficiency. Borderline enlarged aortic root. Right ventricular systolic pressure estimated to be 24 mmHg. Unable to assess diastolic dysfunction. 2. History of oropharyngeal and esophageal dysphagia, pulmonary aspiration, chronic cough, bronchitis viral in April 2019, on amiodarone: Patient had PFT by Dr. Fitch January 2019. It is reported as irreversible mild large airways obstructive ventilatory defect with preserved diffusion capacity. FEV1 93% of predicted. Patient has seen Dr. Fitch in January 2019. 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 Currently, patient denies acute dysphagia. Speech therapist evaluation ordered. 3. Elevated blood pressure: Patient denies history of hypertension but blood pressure is elevated. Monitor BP. 4. DVT prophylaxis: Bilateral SCDs. Xarelto on hold. OBSV E&M: [id number] Initial observation care L3
[2019-11-07 19:06] LABS: AST(SGOT) 19 U/L (15-37); Alanine Aminotransfer ALT/SGPT 25 U/L (16-61); Alkaline Phosphatase 70 U/L (45-117); Bilirubin, Direct 0.25 mg/dL (0.00-0.30); Globulin 3.2 g/dL (2.2-4.2); Protein, Total 7.2 g/dL (6.4-8.2); Thyroid Stim Hormone (TSH) 1.54 uIU/mL (0.358-3.74)
[2019-11-07 19:24] VITALS: BP 154/84; PULSE 55; RESP 15; O2SAT 98
[2019-11-07 21:15] LABS: Probe Check PASS; Specimen Processing Control PASS
[2019-11-07 22:10] VITALS: BMI 27.7
[2019-11-07 22:20] VITALS: BP 133/74; PULSE 66; RESP 16; TEMP 36.4; O2SAT 100
[2019-11-07] MEDS: 0.9% Saline Lock 10 ML Syringe IV (23:02)
[2019-11-07] MEDS: 0.9% Normal Saline 1,000 ML 75 ML IV (23:02)
[2019-11-07 23:46] VITALS: O2SAT 100
[2019-11-07 23:47] VITALS: PULSE 61
[2019-11-08 02:59] VITALS: PULSE 57
[2019-11-08 04:20] VITALS: BP 123/61; PULSE 58; RESP 16; TEMP 36.6; O2SAT 96
[2019-11-08 05:39] LABS: Absolute Lymphocyte Count 1.48 X10^3/uL (0.83-4.51); Absolute Neutrophil Count 3.3 X10^3/uL (2.0-7.7); Basophil# 0.04 X10^3/uL; Basophil% 0.7 % (0-1); Eosinophil# 0.36 X10^3/uL; Eosinophils% 6.1 % (0-5); Hematocrit 38.5 % (40-54); Hemoglobin 12.8 g/dL (13.0-16.5); Lymphocyte # 1.48 X10^3/ul (4.0); Lymphocyte % 25.2 % (19-41); Mean Corp Hgb Conc 33.2 g/dL (32-36); Mean Corpuscular Hgb 32.2 pg (27.0-32.0); Mean Platelet Vol. 10.9 fl (6.2-12.0); Monocyte# 0.68 X10^3/uL; Monocyte% 11.6 % (0-10); NRBC Flagged by Analyzer 0 % (0-5); Neutrophil # 3.29 X10^3/uL (2.7-7.7); Neutrophil % 56.1 % (47-70); Platelet Count 174 K/mm3 (150-450); RBC Distribution Width CV 12.9 % (11.6-14.6); Red Blood Count 3.97 M/mm3 (4.6-6.2); White Blood Count 5.9 K/mm3 (4.4-11.0)
[2019-11-08 06:11] LABS: Anion Gap 4 (5-15); BUN 17 mg/dL (7-18); BUN/Creat Ratio 16.3 RATIO (10-20); Chloride 107 mmol/L (98-107); Creatinine, Serum 1.04 mg/dL (0.70-1.30); EST Glomerular Filtration Rate 72 mL/min (>60); Est Glom Filt Rate - Afr Amer 88 mL/min (>60); Estimated Creatinine Clearance 64.32 ml/min; Glucose 73 mg/dL (74-106); Phosphorus 3.2 mg/dL (2.5-4.9); Potassium 3.7 mmol/L (3.5-5.1); Sodium Level 139 mmol/L (136-145)
[2019-11-08 06:50] VITALS: PULSE 56
[2019-11-08 07:16] VITALS: O2SAT 95
[2019-11-08 09:17] VITALS: BP 117/60; PULSE 58; RESP 16; TEMP 36.8; O2SAT 98
[2019-11-08 09:20] VITALS: PULSE 58
[2019-11-08] MEDS: Cyanocobalamin 500 MCG Tablet 1000 MCG PO (09:20)
[2019-11-08] MEDS: Metoprolol(XL)Succ 25 MG Tablet 12.5 MG PO (09:20)
[2019-11-08] MEDS: Amiodarone 200 MG Tablet 100 MG PO (09:21)
--- NOTE | 2019-11-08 12:05 | DCINST_ITS ---
You will use the following diet at home:: Cardiac Your food should be the consistency of: Regular Your liquids should be the consistency of: Regular/Thin Discharge Activity: Return to Normal Activity, No Restrictions Allergies/Adverse Reactions: Allergies ipratropium Adverse Reaction (Mild, Verified 11/07/19 16:22) Hives Medications to take at Discharge Cholecalciferol (Vitamin D3) [Vitamin D3] 1,000 unit PO DAILY 04/16/13 cyanocobalamin (vitamin B-12) 1,000 mcg capsule 2,000 mcg PO DAILY 11/18/18 multivitamin 1 tab PO DAILY 01/08/19 rivaroxaban 20 mg tablet 20 mg PO DAILY #90 tab 07/27/19 amiodarone 200 mg tablet 100 mg PO DAILY #30 tab 08/27/19 metoprolol succinate 25 mg tablet,extended release 24 hr 12.5 mg PO DAILY #90 tab 08/27/19 Primary Care Physician: Orlando Galvan MD [Primary Care Provider] - Please follow up with your Primary Care Physician in: as scheduled Test Results: Test results from this visit will be discussed in further detail at your follow- up appointment, if applicable. Please Follow Up With: Jose Galvan MD When: as instructed
--- NOTE | 2019-11-08 12:07 | PCM.DC.SUM ---
Discharge Date and Diagnosis Date of Admission: 11/07/19 Date of Discharge: 11/08/19 - Secondary Discharge Diagnosis Chronic Problems: Chronic Problems (Last Reviewed 08/07/19 @ 13:30 by Macrina Burt) Paroxysmal atrial fibrillation (Chronic) DCCV on 12/16/2018; Dysphagia causing pulmonary aspiration with swallowing (Chronic) Hospital Course and Treatment Cardiology Operations: None Procedures: None Summary of Care Provided: Mr Sinha is a 83 year old M with a PMH of PAF who presented to the ED on 11/07/2019 for irregular heartbeat along with fatigue. He stated sometimes he has to take deep breath but when asked about difficulty in breathing he said that that was not and issues. He has had no fever or chills. He denies chest pain or pressure. He denies recent flulike illness or exposures. He states, he occasionally feels an extra heart beat followed by a pause and then 2 quick beats and then back to normal rhythm. He is status post cardioversion for A-fib from December 2018 and is on amiodarone, rivaroxaban and Toprol XL. In th ED, his heart rate was in upper 55 and blood pressure 154/64. He had no hypoxia, tachypnea or obvious shortness of breath. His EKG showed sinus bradycardia at 56 beats minute with sinus arrhythmia, first-degree AV block, LAD. QTc interval 468 ms. Previous EKG of December 2018 shows sinus rhythm at 63 bpm with bifascicular block RBBB plus LAFB. He was seen by Dr. Galvan and medication adjustments were made. TSH was WNL. He was feeling well and ready to go home. With the medication adjustments, he will f/u with Dr. Galvan. Subjective: Pt states that he is feeling well and wants to go home. - Physical Exam Vitals/I&O's: Vital Signs Temp Pulse Resp BP Pulse Ox 98.3 F 58 L 16 117/60 98 11/08/19 09:17 11/08/19 09:20 11/08/19 09:17 11/08/19 09:17 11/08/19 09:17 Oxygen Delivery Method Room Air Weight: 100.698 kg Body Mass Index (BMI) 27.7 Intake and Output for Last 24 Hours 11/06/19 11/07/19 11/08/19 23:59 23:59 23:59 Intake Total 311.25 / 311.25 400 / 400 Balance 311.25 / 311.25 400 / 400 General: Alert, Oriented x3, Cooperative, No apparent distress, Well developed, Well nourished, - - WM who appears younger than stated age is sitting up in bed and Dr. Galvan Neck: Supple, Trachea Midline Lungs: Clear to auscultation, Normal air movement, No rhonchi, No wheeze, No rales Cardiovascular: Regular Rhythm, Normal S1, Normal S2, No murmurs, No Ectopic Activity, Bradycardic, No rub noted, No Gallop Abdomen: Bowel Sounds Present, Soft, Non Tender, Non-Distended, No hernias noted Extremities: No clubbing, No cyanosis, No edema, Capillary Refill Less than 3 Seconds, Peripheral Pulses Normal Psych/Mental Status: Normal Affect, Appropriate, - - very pleasant, Alert and oriented to time, place, person, mood and affect Laboratory Results 11/07/19 17:03: WBC 6.3, RBC 4.44 L, Hgb 14.5, Hct 43.1, MCV 97.1 H, MCH 32.7 H, MCHC 33.6, RDW Std Deviation 46.5 H, RDW Coeff of Marilee 13.0, Plt Count 191, MPV 10.7, Immature Gran % (Auto) 0.300, Neut % (Auto) 65.6, Lymph % (Auto) 16.5 L, [place] % (Auto) 11.8 H, Eos % (Auto) 5.0, Baso % (Auto) 0.8, Absolute Neuts (auto) 4.1, Absolute Lymphs (auto) 1.03, Nucleated RBC % 0 11/07/19 17:03: Sodium 139, Potassium 4.1, Chloride 105, Carbon Dioxide 28.0, Anion Gap 6, BUN 18, Creatinine 1.15, Estim Creat Clear Calc 56.59, Est GFR (MDRD) Af Amer 78, Est GFR (MDRD) Non-Af 64, BUN/Creatinine Ratio 15.7, Glucose 87, Calcium 8.8, Troponin I < 0.015 11/07/19 17:03: Total Bilirubin 0.90, Direct Bilirubin 0.25, AST 19, ALT 25, Alkaline Phosphatase 70, Total Protein 7.2, Albumin 4.0, Globulin 3.2, TSH 1.54 11/07/19 19:09: COVID-19 ([facility]) Negative 11/07/19 22:18: Troponin I < 0.015 11/08/19 01:08: Troponin I < 0.015 11/08/19 04:30: Sodium 139, Potassium 3.7, Chloride 107, Carbon Dioxide 28.0, Anion Gap 4 L, BUN 17, Creatinine 1.04, Estim Creat Clear Calc 64.32, Est GFR (MDRD) Af Amer 88, Est GFR (MDRD) Non-Af 72, BUN/Creatinine Ratio 16.3, Glucose 73 L, Calcium 8.0 L, Phosphorus 3.2, Magnesium 2.0 11/08/19 04:30: WBC 5.9, RBC 3.97 L, Hgb 12.8 L, Hct 38.5 L, MCV 97.0 H, MCH 32.2 H, MCHC 33.2, RDW Std Deviation 46.0 H, RDW Coeff of [place] 12.9, Plt Count 174, MPV 10.9, Immature Gran % (Auto) 0.300, Neut % (Auto) 56.1, Lymph % (Auto) 25.2, [place] % (Auto) 11.6 H, Eos % (Auto) 6.1 H, Baso % (Auto) 0.7, Absolute Neuts (auto) 3.3, Absolute Lymphs (auto) 1.48, Nucleated RBC % 0 11/08/19 04:30: Troponin I < 0.015 Current Medications Acetaminophen (Tylenol) 650 mg PO Q6H PRN PRN PRN Reason: Pain Score 1-10/Temp > 100.7 F Albuterol Sulfate (Ventolin Aerosols) 2.5 mg INHALATION Q2H PRN PRN PRN Reason: SOB/Wheezing Amiodarone HCl (Cordarone) 100 mg PO DAILY [facility] Last Admin: 11/08/19 09:21 Dose: 100 mg Documented by: Cholecalciferol (Vitamin D (25mcg)) 1,000 unit PO DAILY [facility] Last Admin: 11/08/19 09:20 Dose: 1,000 unit Documented by: Cyanocobalamin (Vitamin B12) 1,000 mcg PO DAILY [facility] Last Admin: 11/08/19 09:20 Dose: 1,000 mcg Documented by: Docusate Sodium (Colace) 100 mg PO BID PRN PRN PRN Reason: Constipation Melatonin (Melatonin) 3 mg PO QHS PRN PRN PRN Reason: INSOMNIA Metoprolol Succinate (Toprol Xl (Beta [place]qu[place])) 12.5 mg PO DAILY [facility] Last Admin: 11/08/19 09:20 Dose: 12.5 mg Documented by: Ondansetron HCl (Zofran) 4 mg IV Q8H PRN PRN PRN Reason: NAUSEA/VOMITING Sodium Chloride () 10 - 40 ml IV UD PRN PRN Reason: SALINE FLUSH Last Admin: 11/07/19 23:02 Dose: 10 ml Documented by: Discharge Activity: Return to Normal Activity, No Restrictions Home Medications: Medications to take at Discharge Cholecalciferol (Vitamin D3) [Vitamin D3] 1,000 unit PO DAILY 04/16/13 cyanocobalamin (vitamin B-12) 1,000 mcg capsule 2,000 mcg PO DAILY 11/18/18 multivitamin 1 tab PO DAILY 01/08/19 rivaroxaban 20 mg tablet 20 mg PO DAILY #90 tab 07/27/19 amiodarone 200 mg tablet 100 mg PO DAILY #30 tab 08/27/19 metoprolol succinate 25 mg tablet,extended release 24 hr 12.5 mg PO DAILY #90 tab 08/27/19 Primary Care Physician: Orlando Galvan MD [Primary Care Provider] - Please follow up with your Primary Care Physician in: as scheduled Please Follow Up With: Jose Gavlan MD When: as instructed Medical Necessity - Tobacco Use Smoking Status: Never smoker Tobacco Use: Non-smoker Meaningful Use Info Meaningful Use Diagnoses (Choose all that apply): None applicable Inpatient E&M: [id number] [facility]
--- NOTE | 2019-11-08 12:44 | CON.PCM_ITS ---
Problem List (1) Paroxysmal atrial fibrillation Status: Chronic Comment: DCCV on 12/16/2018; (2) Shortness of breath Status: Acute (3) Diaphoresis Status: Acute Reason for Consult Date of Consultation: 11/08/19 History of Present Illness: The patient is a 83 year old white male with a history of PAF status post medical therapy on synchronized biphasic DC cardioversion who presented for concerns of shortness of breath and diaphoresis. He states he has been doing well, has not noted any recurrence of his PAF, has not experienced any concer mellissa chest discomfort. There is been no orthopnea or PND or peripheral pitting edema. There has been no near syncope or syncope. He notes his main concern has been his slow heart rate which after adjusting his medication earlier this year, by decreasing the dosages, he has felt better. However recently he felt when he has been out and about, especially in the more hot humid weather, he has become short of breath and more diaphoretic. Again this is occurred without any other obvious symptoms. He elected to present to the emergency department for evaluation. There he was found to have negative cardiac enzymes and sinus rhythm/sinus bradycardia. Upon entering his room this morning he stated he felt better, back to normal, and was ready to go home. He denied any other recurrent symptoms when he has been up and ambulating in his room or in the hallway. He notes otherwise he has been doing well. [] Past Medical History Allergies/Adverse Reactions: Allergies ipratropium Adverse Reaction (Mild, Verified 11/07/19 16:22) Hives Home Medications: Ambulatory Orders Medication Instructions Recorded Cholecalciferol (Vitamin D3) 1,000 unit PO DAILY 04/16/13 [Vitamin D3] cyanocobalamin (vitamin B-12) 2,000 mcg PO DAILY 11/18/18 1,000 mcg capsule multivitamin 1 tab PO DAILY 01/08/19 rivaroxaban 20 mg tablet 20 mg PO DAILY #90 tab 07/27/19 Amiodarone HCl [Cordarone] 100 mg PO QODAY tab 11/08/19 Past Medical History (Chronic Problems): Chronic Problems (Last Reviewed 08/07/19 @ 13:30 by Macrina Burt) Paroxysmal atrial fibrillation (Chronic) [facility] on 12/16/2018; Dysphagia causing pulmonary aspiration with swallowing (Chronic) Surgical History: noncontributory - *Family History Paternal Family History: Family History (Last Reviewed 08/07/19 @ 13:30 by Macrina Burt) Sister Breast cancer History Items: - - Father of pneumonia after hip surgery at age of 97. Lives: With Family Smoking Status: Never smoker Tobacco Use: Non-smoker Alcohol: None Drugs: None Review of Systems - Review of Systems General: Denies: Fever, Night Sweats, Fatigue Cardiovascular: Reports: Shortness of Breath with Exertion, - - Diaphoresis. Denies: Chest Discomfort, Shortness of Breath, Orthopnea, PND, Peripheral Edema, Palpitations, Lightheadedness, Dizziness, Near Syncope, Syncope Respiratory: Reports: Shortness of Breath. Denies: Cough, Sputum Production, Hemoptysis Gastrointestinal: Denies: Hematemesis, Hematochezia, Melena Genitourinary: Denies: Dysuria, Hematuria Skin: Denies: Rash Objective: Vital Signs Temp Pulse Resp BP Pulse Ox 98.3 F 58 L 16 117/60 98 11/08/19 09:17 11/08/19 09:20 11/08/19 09:17 11/08/19 09:17 11/08/19 09:17 Oxygen Delivery Method Room Air Weight: 222 lb Body Mass Index (BMI) 27.7 Intake and Output for Last 24 Hours 11/06/19 11/07/19 11/08/19 23:59 23:59 23:59 Intake Total 311.25 / 311.25 400 / 400 Balance 311.25 / 311.25 400 / 400 11/07/19 17:03: WBC 6.3, RBC 4.44 L, Hgb 14.5, Hct 43.1, MCV 97.1 H, MCH 32.7 H, MCHC 33.6, Plt Count 191, MPV 10.7, Immature Gran % (Auto) 0.300, Neut % (Auto) 65.6, Lymph % (Auto) 16.5 L, Arthur % (Auto) 11.8 H, Eos % (Auto) 5.0, Baso % (Auto) 0.8, Absolute Neuts (auto) 4.1, Nucleated RBC % 0 11/07/19 17:03: Sodium 139, Potassium 4.1, Chloride 105, Carbon Dioxide 28.0, Anion Gap 6, BUN 18, Creatinine 1.15, Est GFR (MDRD) Af Amer 78, Est GFR (MDRD) Non-Af 64, BUN/Creatinine Ratio 15.7, Glucose 87, Calcium 8.8, Troponin I < 0.015 11/07/19 17:03: Total Bilirubin 0.90, Direct Bilirubin 0.25 11/07/19 22:18: Troponin I < 0.015 11/08/19 01:08: Troponin I < 0.015 11/08/19 04:30: Sodium 139, Potassium 3.7, Chloride 107, Carbon Dioxide 28.0, Anion Gap 4 L, BUN 17, Creatinine 1.04, Est GFR (MDRD) Af Amer 88, Est GFR (MDRD) Non-Af 72, BUN/Creatinine Ratio 16.3, Glucose 73 L, Calcium 8.0 L, Phosphorus 3.2, Magnesium 2.0 11/08/19 04:30: WBC 5.9, RBC 3.97 L, Hgb 12.8 L, Hct 38.5 L, MCV 97.0 H, MCH 32.2 H, MCHC 33.2, Plt Count 174, MPV 10.9, Immature Gran % (Auto) 0.300, Neut % (Auto) 56.1, Lymph % (Auto) 25.2, Arthur % (Auto) 11.6 H, Eos % (Auto) 6.1 H, Baso % (Auto) 0.7, Absolute Neuts (auto) 3.3, Nucleated RBC % 0 11/08/19 04:30: Troponin I < 0.015 Rhythm: Sinus rhythm/sinus bradycardia; PACs EKG: Sinus bradycardia, left axis deviation, possible incomplete left bundle branch block ECHO: Interpretation Summary The study was technically difficult. Contrast injection was performed. Left ventricular systolic function is normal. The estimated ejection fraction is 55 %. Mildly dilated right ventricle. Mild global right ventricular systolic dysfunction. The left atrium is moderately enlarged. The right atrium is severely enlarged. Mild (1+) mitral valve insufficiency. Mild to moderate (1-2+) tricuspid valve insufficiency. Mild focal aortic valve calcification. Trivial aortic valve insufficiency. Trivial eccentric pulmonic valve insufficiency. Borderline enlarged aortic root. Right ventricular systolic pressure estimated to be 24 mmHg. Unable to assess diastolic dysfunction. Stress Test: Stress Test Report Date: 12-15-18 Procedure: Pharmacologic stress nuclear imaging study Indications: Chest pain; atrial fibrillation Consent: Per the patient Procedure: The patient underwent pharmacologic (Regadenoson) evaluation with a peak heart rate of 100 beats per minute (72 %predicted maximal heart rate) and a peak blood pressure of 120/60 mmHg. The baseline ECG demonstrated atrial fibrillation; right IVCD pattern. The peak pharmacologic ECG demonstrated no obvious ECG changes. There was an occasional PVC during infusion and recovery. There was no complaint of chest discomfort during pharmacologic infusion or recovery. The examination was discontinued secondary to completion of protocol. Impression: 1. Pharmacologic (Regadenoson) evaluation 2. Peak pharmacologic ECG with no obvious ECG changes. 3. There was an occasional PVC during infusion and recovery. 4. Nuclear images pending Myocardial perfusion imaging study: Technique: The patient was injected with 12.0 millicuries of technetium 99m Cardiolite and subsequently rest SPECT Cardiolite nuclear imaging was obtained in the horizontal long, vertical long, and short axis views. The patient underwent pharmacologic (Regadenoson) evaluation with a peak heart rate of 100 beats per minute (72 % percent predicted maximal heart rate) and a peak blood pressure of 120/60 mmHg. The patient was injected with 36.0 millicuries of technetium 99m Cardiolite and subsequently stress SPECT Cardiolite nuclear imaging was obtained in the horizontal long, vertical long, and short axis views. A gated Cardiolite study at peak stress was obtained. Interpretation: Rest and stress SPECT Cardiolite nuclear imaging status post realignment, normalization, and attenuation correction demonstrate relative uniform tracer uptake and myocardial perfusion appearing within normal limits. There is end systolic thickening and brightening. The gated Cardiolite study demonstrates myocardial thickening and inward wall motion. The reported LVEF is 53 %. Impression: 1. Rest and stress SPECT Cardiolite nuclear imaging demonstrate relative uniform tracer uptake and myocardial perfusion appearing within normal limits. 2. The gated Cardiolite study reports an LVEF of 53 %. Cardioversion: Date: 12-16-18 Procedure: Synchronized Biphasic DC Cardioversion Indications: Atrial fibrillation Consent: Per the Patient Anesthesia: per Dr. Thomas of pulmonology and critical care medicine with propofol 40 mg IV push total Procedure: Synchronized Biphasic DC Cardioversion: 200 J x1: Result: Sinus rhythm Complications: no apparent complications CXR: Reported by radiology as demonstrating concerns of possible atelectasis versus viral pneumonia versus artifact: Please see official report COMPLETE PULMONARY FUNCTION TEST INTERPRETATION Brief HPI: Patient is an 83 year old -[place] male, currently under the care of myself, who presents to [facility] for complete pulmonary function tests secondary to diagnosis of cough. Respiratory therapist reports good effort and reproducible results. Interpretation: Forced expiration spirometry shows a mild large airways obstructive ventilatory defect with an FEV1 of 93% predicted. There is no significant bronchodilator response by strict ATS criteria. Spirograms are of good quality and plateau slowly, indicating slowly emptying areas of the lungs. The respiratory flow volume loop shows decreased expiratory flow rates at all lung volumes consistent with airway obstruction. Lung volumes by body plethysmography show a normal total lung capacity at 8.1 L, 111% predicted. All other lung volumes are within normal limits. Diffusion capacity by carbon monoxide is normal at 103% predicted. The airway resistance is normal. Compared to previous pulmonary function tests from 02/20/2018, there has been no significant change. Impression: Irreversible mild large airways obstructive ventilatory defect with preserved diffusion capacity 01/21/19 1520 <Electronically signed by Jay Fitch MD> Date _ Jay Fitch MD Assessment/Plan 1. Paroxysmal atrial fibrillation The patient has a history of paroxysmal atrial fibrillation. The present time he remains in sinus rhythm/sinus bradycardia. He is going to continue his medical management. Although based upon concerns of his sinus bradycardia and his symptoms of shortness of breath and diaphoresis, which are thus far without any other clear-cut definitive etiology, his medications will be adjusted to minimize his sinus bradycardia and see if his symptoms improve. Thus his beta-ragini will be placed on hold. His amiodarone therapy will be changed to every other day. He will have future follow-up outpatient ECG. In the meantime he will continue his anticoagulant therapy. If he continues with such symptoms despite adjusting his medications without other etiologies then there may be a question as to whether or not he could have any underlying CAD not detected on his previous exercise tolerance test that would warrant further evaluation care in the cardiac catheterization laboratory. This would require the patient to be without his anticoagulant therapy for a minimum of 2 days prior to such a procedure. 2. Shortness of breath Again he has had episodes of shortness of breath. He states after his medication dosages were decreased earlier this year he did feel better overall. This does raise a concern as to whether or not his sinus bradycardia is still playing a role in his symptoms. Thus as he has had no other definitive etiology to explain it thus far he will undergo evaluation care as noted above. 3. Diaphoresis The patient states with the recent heat and humidity, after being outside, he has become diaphoretic. He has had no other concerning symptoms such as classic angina pectoris. It is unclear whether this is related to his activity in the ambient temperature/humidity versus being related to concerns of his sinus bradycardia, etc. Thus he will undergo evaluation and care as noted above. Of note, the patient has undergone pulmonary evaluation. His chest x-ray report is as noted above. It was not described as demonstrating an acute cardiovascular condition or findings considered compatible with amiodarone related therapy. He is also undergone PFTs in the past as noted. He has been following with Dr. Fitch of pulmonology. If there are any concerns going forward with respect to his underlying symptoms and his pulmonary status then depending upon his cardiac evaluation care he may need further pulmonary evaluation as well. Comment: The patient's case was discussed and reviewed with the patient and Dr. Brown. This note was generated using a voice recognition system and there may be incorrect words, spelling or punctuation that were not noted when reviewing the office note prior to saving.
== END 2019-11-08 12:06 | disposition home or self-care (01) ==
LOC: ED 17:32 → PCU 19:45
PROVIDERS: Emergency Medicine; Internal Medicine; Admitting Provider Internal Medicine; Emergency Provider Physician Assistant Medical; PCP Family Medicine; Referring Provider Internal Medicine; Visit Provider Internal Medicine
DX: I48.0 Paroxysmal atrial fibrillation (principal); R13.10 Dysphagia, unspecified; I44.0 Atrioventricular block, first degree; R00.1 Bradycardia, unspecified; N40.0 Benign prostatic hyperplasia without lower urinary tract symptoms; G25.81 Restless legs syndrome; M19.90 Unspecified osteoarthritis, unspecified site; G63 Polyneuropathy in diseases classified elsewhere; R03.0 Elevated blood-pressure reading, without diagnosis of hypertension; Z79.899 Other long term (current) drug therapy; Z79.01 Long term (current) use of anticoagulants; R06.02 Shortness of breath
CPT/HCPCS: 36415; 71045; 80048; 80076; 83735; 84100; 84443; 84484; 85025; 87635; 92610; 93005; 94799; 96360; 99218; 99251; 99283; J7030; A4216; G0378; G0463; U0003

== ENCOUNTER → 2019-12-04 10:50 | Outpatient (CLI) | payer MEDICARE, SELFPAY ==
[2019-11-07 22:10] VITALS: BMI 27.7
--- NOTE | 2019-12-04 10:54 | ECHOCS_ITS ---
Reason For Study: DYSPNEA/SOB Procedure This was a 2D Doppler, Color Flow transthoracic echocardiogram. The study was technically difficult. Contrast injection was performed. Exam performed in department. Left Ventricle Normal LV size. Left ventricular systolic function is normal. The estimated ejection fraction is 55 %. No regional wall motion abnormalities noted. Right Ventricle Mildly dilated right ventricle. Normal systolic function. Atria The left atrium is moderately enlarged. The right atrium is moderately enlarged. No doppler evidence for ASD. Mitral Valve There is no mitral annular calcification. Mild diffuse mitral valve thickening. Mild mitral valve prolapse, posterior leaflet. Mild (1+) mitral valve insufficiency. Tricuspid Valve Normal tricuspid valve. Mild to moderate (1-2+) tricuspid valve insufficiency. Right ventricular systolic pressure estimated to be 34 mmHg. Aortic Valve Trisinus/trileaflet aortic valve. Mild diffuse aortic valve thickening. Mild focal aortic valve calcification. Aortic sclerosis, no stenosis. Trivial aortic valve insufficiency. Pulmonic Valve The pulmonic valve is not well visualized. Mild (1+) pulmonic valve insufficiency. Great Vessels Borderline enlarged aortic root. Pericardium/Pleural No pericardial effusion. Medication 22 gauge I.V. with prn adaptor inserted into right arm. Diluted definity 3ml given slow IV push to enhance endocardial definition. MMode/2D Measurements & Calculations LVIDd: 5.0 cm IVSd: 1.1 cm Ao root diam: 3.8 cm LVIDs: 3.6 cm LVPWd: 1.1 cm RVDd: 4.4 cm FS: 28.7 % LAV(MOD-bp): 77.8 ml LVAd ap4: 33.5 cm2 SV(MOD-sp4): 66.9 ml LAV(MOD-bp) Indexed: 33.9 ml/m2 EDV(MOD-sp4): 117.9 ml LAV(MOD-sp2): 74.7 ml EDV(sp4-el): 117.6 ml LAV(MOD-sp4): 79.9 ml LVAs ap4: 20.1 cm2 ESV(MOD-sp4): 51.0 ml ESV(sp4-el): 50.1 ml EF(MOD-sp4): 56.8 % EF(sp4-el): 57.4 % SV(sp4-el): 67.5 ml LA A4 area: 25.5 cm2 LA dimension(2D): 4.2 cm RA A4 area: 25.8 cm2 Time Measurements MV dec time: 0.25 sec Doppler Measurements & Calculations MV E max van: 82.7 cm/sec Lat Peak E' Van: 9.4 cm/sec Med Peak E' Van: 8.2 cm/sec MV A max van: 64.6 cm/sec E/E' lat: 8.8 E/E' med: 10.1 MV E/A: 1.3 Ao V2 max: 131.0 cm/sec AI max van: 384.9 cm/sec LV V1 max: 91.7 cm/sec Ao max P.9 mmHg AI max P.3 mmHg LV V1 max P.4 mmHg AI dec slope: 165.3 cm/sec2 AI P1/2t: 682.1 msec PA V2 max: 83.7 cm/sec PI dec slope: 244.9 cm/sec2 TR max van: 280.0 cm/sec TR max P.4 mmHg Interpretation Summary The study was technically difficult. Contrast injection was performed. Left ventricular systolic function is normal. The estimated ejection fraction is 55 %. Mildly dilated right ventricle. The left atrium is moderately enlarged. The right atrium is moderately enlarged. Mild diffuse mitral valve thickening. Mild mitral valve prolapse, posterior leaflet Mild (1+) mitral valve insufficiency. Mild to moderate (1-2+) tricuspid valve insufficiency. Aortic sclerosis, no stenosis. Trivial aortic valve insufficiency. Mild (1+) pulmonic valve insufficiency. Borderline enlarged aortic root. Right ventricular systolic pressure estimated to be 34 mmHg. Transmitral diastolic flow velocities suggest diastolic dysfunction (pseudonormal pattern). Ordering Physician: Jose Galvan Referring Physician: SUMA ANTONIO Performed By: Shanelle Thomas RDCS
== END ==
PROVIDERS: PCP Family Medicine; Referring Provider Internal Medicine Cardiovascular Disease; Visit Provider Internal Medicine Cardiovascular Disease
DX: R06.02 Shortness of breath (principal); R61 Generalized hyperhidrosis; I48.0 Paroxysmal atrial fibrillation; Z79.899 Other long term (current) drug therapy
CPT/HCPCS: 93306; Q9957; A4216; C8929

== ENCOUNTER 2020-04-07 14:34 | Outpatient (RCR) | payer MEDICARE, SELFPAY ==
[2020-02-09 14:58] VITALS: BMI 28.0
== END 2020-04-07 23:59 ==
LOC: IMMUN 14:34
PROVIDERS: PCP Family Medicine; Visit Provider Family Medicine
DX: Z23 Encounter for immunization (principal)
CPT/HCPCS: 0011A; 0012A; 91301

== ENCOUNTER → 2020-11-07 14:49 | Outpatient (CLI) | payer MEDICARE, SELFPAY ==
--- NOTE | 2020-11-07 14:55 | RAD_ITS ---
HISTORY: amiodarone therapy EXAMINATION/TECHNIQUE: XR Chest 2 Views: 2 views COMPARISON: 11/07/19, 04/25/18 FINDINGS: LINES/DEVICES: None. LUNGS: No pulmonary consolidation, mass, or edema. No pleural effusion or pneumothorax. MEDIASTINUM AND CARDIOVASCULAR STRUCTURES: Cardiac silhouette not enlarged. Central airways and mediastinal contour are unremarkable. BONES AND SOFT TISSUES: No acute bony abnormalities. RAD/Chest PA and Lateral IMPRESSION: No radiographic evidence of acute cardiopulmonary disease. at 1546 Reported and signed by: Ga Orourke MD Electronically Signed: Ga Orourke MD at 15:45 EDT Tel , Service support ,
== END ==
PROVIDERS: PCP Family Medicine; Referring Provider Internal Medicine Cardiovascular Disease; Visit Provider Internal Medicine Cardiovascular Disease
DX: I48.0 Paroxysmal atrial fibrillation (principal); I49.1 Atrial premature depolarization; Z79.899 Other long term (current) drug therapy
CPT/HCPCS: 71046

== ENCOUNTER 2021-02-27 11:07 | Outpatient (RCR) | payer MEDICARE, SELFPAY ==
--- NOTE | 2021-02-28 17:00 | HP.SP.AD ---
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 *ESOPHAGEAL PHASE: no obvious esophageal phase abnormalities observed. 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, possibly complicating pharyngoesophageal motility in combination with noted cervical osteophyte also located at the C6-C7 level when combined with above findings, though the Patients oracle hrms developer would be able to provide further impute as to the significance; very dry and FREQUENT throat clearing and coughing occurring prior to, in between, and following trials with no association to bolus ingestion; no changes in quality associated with ingestion, it still appears unclear as to how this associates with above findings (are the pharyngeal changes associate with pharyngeal irritation with chronic coughing? What is the relation of the symptoms?) with the information available at the time of assessment. RESPONSE TO STRATEGIES: all deficits appeared to be managed successfully with reduction in bolus rate / volume adjustments, and diet texture adjustments, execution of liquid chasers following semisolid and solid ingestion. Pt participated in outpatient speech therapy evaluation in Dec 2018 where the plan of care included participation in oropharyngeal exercises and possible repeat MBS if warranted. Oropharyngeal exercises were sent home with pt to be completed 3x/day 10x each. 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 Pt now returning wishing to address deficits. Other Relevant Medical History/Diagnoses/Surgery: EARL FORD (TED) an 85 yo male was seen on this date for skilled dysphagia evaluation s/p hx of speech therapy and continued difficulties suspected to be contributed to penetration/aspiration. Tendency to develop severe bronchitis during the fall season which has become worse over the past 3 years. Flying on airplanes also seems to affect this as well as activities such as cleaning and mowing the yard. Pt reports not being tested for allergies. Pt reports having a phlegm problem all the time, which causes him to throat clear. Pt dx with bronchitis again this fall ? Pt reporting that he feels he is what he considers back to normal at this time. Reports ?aspirating? his own saliva. Pt visiting Dr. Dickerson, ENT on 01/02/21 and was not scoped at this time. ENT recommending speech therapy to address dysphagia for ?continued pooling in the vallecula.? Pt reports when he is eating a more forward posture appears to be beneficial to reduce coughing and throat clearing. Adjusts the types of foods he eats when out with friends to foods that don?t require as much chewing. 11/07/2020 Chest Xray results: LUNGS: No pulmonary consolidation, mass, or edema. No pleural effusion or pneumothorax. No radiographic evidence of acute cardiopulmonary disease. 02/20/2018 pulmonary functions test revealed irreversible mild large airways obstructive ventilatory defect with preserved diffusion capacity. Smoking Status: Never smoker Hx Smoking: No Hx Tobacco Use: No - Pain Is pain an issue with your current prescribed condition?: No Patient Allergies - Allergies Allergies ipratropium Adverse Reaction (Mild, Verified 11/07/20 13:36) Hives Subjective Dysphagia - Symptoms Reported Symptoms/Problems with: Coughing, Difficulty Swallowing Liquids, Food gets stuck, Hx of Pneumonia - Current Diet Solids Current Diet: Regular - Current Diet Liquids Current Liquids: Thin Plan - Plan Plan: Will rx Pt for skilled outpatient tx to address deficits in dysphagia unspecified. Pt would benefit from training and education re: explanation of MBSS and recommendations from the study re: diet, safe swallowing strategies, and potential for strengthening exercises. Without skilled intervention, Pt is at risk for consuming a restrictive diet putting him at risk for aspiration pneumonia and atrophy of laryngeal musculature. - Recommendations MBS: Yes Treatment Warranted: Yes - Frequency Visits in this POC: TBD - Prognosis Prognosis: Excellent - Goals that are Established: Determination:: Goals will be added/modified as deemed necessary and appropriate. Therapy will be discontinued when results of re-evaluation indicate therapy is no longer needed or lack of progress has been documented. - Goal #1-5 Goal #1: Pt will participate in Modified Barium Swallow Study (MBSS) to objectively assess Pt's oropharyngeal swallow function to determine the least restrictive means of nutrition and progress from participating in pharyngeal strengthening exercises. Goal #2: Additional goals to be added after Pt participation in MBSS. Education - Patient has Indicated that the Following Identified Educational Needs: None The Patient has indicated that they have no educational or learning abilities that may effect their care.: Yes - Patient Instruction Patient Education: Treatment Plan, Goals Person Taught: Patient Teaching Method: Discussion Response to teaching: Return demonstration, Verbalize understanding
--- NOTE | 2021-04-21 07:50 | HP.SP.DC_ITS ---
ST Discharge Summary - Discharged: Discharge: EARL FORD (TED) an 85 yo male who was seen for initial dysphagia evaluation at [facility] on 02/27/21 s/p suspected penetration/aspiration. Pt with hx of speech therapy and continued difficulties suspected to be contributed to penetration/aspiration. Tendency to develop severe bronchitis during the fall season which has become worse over the past 3 years. Flying on airplanes also seems to affect this as well as activities such as cleaning and mowing the yard. Pt reports not being tested for allergies. Pt reports having a phlegm problem all the time, which causes him to throat clear. Pt dx with bronchitis again this fall ? Pt reporting that he feels he is what he considers back to normal at this time. Reports ?aspirating? his own saliva. Pt visiting Dr. Dickerson, ENT on 01/02/21 and was not scoped at this time. ENT recommending speech therapy to address dysphagia for ?continued pooling in the vallecula.? Pt reports when he is eating a more forward posture appears to be beneficial to reduce coughing and throat clearing. Adjusts the types of foods he eats when out with friends to foods that don?t require as much chewing. 11/07/2020 Chest Xray results: LUNGS: No pulmonary consolidation, mass, or edema. No pleural effusion or pneumothorax. No radiographic evidence of acute cardiopulmonary disease. 02/20/2018 pulmonary functions test revealed irreversible mild large airways obstructive ventilatory defect with preserved diffusion capacity. Pt attended only the initial evaluation with recommendations to participate in an instrumental objective evaluation via MBSS. Pt demonstrated limited interest in following through and was searching for oropharyngeal exercises. RN CVOR explained exercises cannot be provided until after the MBSS ? Pt with neutral response. From date of evaluation 02/27/21 to 04/21/21 Pt has not yet participated in MBSS objective evaluation, therefore will be discharged from outpatient speech therapy caseload on this date. Following Pt?s participation in an MBSS, I would gladly re- initiate intervention. Thank you for allowing me to participate the care of your Pt.
== END 2021-02-27 19:00 | disposition home or self-care (01) ==
LOC: SP 11:07
PROVIDERS: PCP Family Medicine; Referring Provider Otolaryngology; Visit Provider Otolaryngology
DX: R13.10 Dysphagia, unspecified (principal)
CPT/HCPCS: 92610

== ENCOUNTER → 2021-02-28 09:58 | Outpatient (CLI) | payer MEDICARE, SELFPAY ==
--- NOTE | 2021-02-28 13:59 | PFTCOMP_ITS ---
COMPLETE PULMONARY FUNCTION TEST INTERPRETATION Brief HPI: Patient is an 85 year old male, currently under the care of Dr. Galvan, who presents to [facility] for complete pulmonary function tests secondary to diagnosis of amiodarone. Respiratory therapist reports good effort and reproducible results. Interpretation: Forced expiration spirometry shows a mild large airways obstructive ventilatory defect with an FEV1 of 79% predicted. There is no significant bronchodilator response by strict ATS criteria. Spirograms are of good quality and plateau slowly, indicating slowly emptying areas of the lungs. The respiratory flow volume loop shows decreased expiratory flow rates at high lung volumes consistent with small airways obstruction. Lung volumes by body plethysmography show a normal total lung capacity at 7.05 L, 94% predicted. All other lung volumes are within normal limits. Diffusion capacity by carbon monoxide is normal at 88% predicted. The airway resistance is normal. Compared to previous pulmonary function tests from 01/21/2019, there is been a significant reduction in FVC, TLC and DLCO by 17%, 13% and 16% respectively. Impression: Irreversible mild large airways obstructive ventilatory defect with some reduction compared to previous testing.
== END ==
PROVIDERS: PCP Family Medicine; Referring Provider Internal Medicine Cardiovascular Disease; Visit Provider Internal Medicine Cardiovascular Disease
DX: I48.0 Paroxysmal atrial fibrillation (principal); I49.1 Atrial premature depolarization; Z79.899 Other long term (current) drug therapy
CPT/HCPCS: 94060; 94726; 94729

== ENCOUNTER 2021-06-08 14:04 | Emergency (ER) | payer MEDICARE, SELFPAY ==
[2021-06-08 14:05] VITALS: BP 127/77; PULSE 75; RESP 14; TEMP 36.2; O2SAT 97; BMI 28.5
--- NOTE | 2021-06-08 15:08 | VDLE_ITS ---
Reason For Study: swelling Procedure LEFT This is a venous duplex using B-mode, color GSV is normal. flow and spectral Doppler. CFV is compressible, spontaneous, phasic, Exam performed portable in ED. competent, and demonstrates normal The exam was abbreviated due to the COVID 19 augmentation. protocol. FV is compressible, spontaneous, phasic, The exam was diagnostic. competent and demonstrates normal A preliminary report was called and/or faxed augmentation. to Dr. Polanco. POP V is compressible, spontaneous, phasic, competent and demonstrates normal augmentation. T/P Trunk is compressible. PTV is compressible. LT PerV is compressible. VL/Venous Duplex US, Unilateral Interpretation Summary There is no evidence of left lower extremity deep vein thrombosis. Left great s aphenous vein appears patent and compressible segmentally. Abbreviated covid 19 protocol Ordering Physician: Isaak Polanco Performed By: Julian Jackson RVT
--- NOTE | 2021-06-08 15:27 | ED.VIS.LOWEX ---
HPI History of Present Illness Chief Complaint: Lower Extremity Injury Narrative Narrative: 85-year-old male presenting with left lower calf pain on the lateral aspect. Patient states it is not swelling. The pain is very mild. Patient is anticoagulated on Xarelto for history of A. fib. No history of DVT/PE. Patient is ambulatory. There is no numbness or tingling. No pain behind the knee. He denies any injury. He denies any injury. He states has been trying to stretch it and this is not helping. [facility] Medical History Bladder neck obstruction BPH (benign prostatic hyperplasia) Cough Diverticulosis of colon History of cardioversion (~12/16/18) History of migraine Kidney stones Lumbago Migraine without aura New onset atrial fibrillation Obesity On amiodarone therapy Osteoarthritis Paroxysmal atrial fibrillation 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 Premature atrial contraction Restless leg syndrome Home Medications cholecalciferol (vitamin D3) 1,000 unit PO DAILY 04/16/13 [History Last Taken 11/06/19 21:00 1000 u] cyanocobalamin (vitamin B-12) 1,000 mcg capsule 2,000 mcg PO DAILY 11/18/18 [History Last Taken 11/06/19 18:00 2,000] multivitamin 1 tab PO DAILY 01/08/19 [History Last Taken 11/07/19 09:00] rivaroxaban 20 mg tablet See Rx Instructions .ROUTE .COMPLEX #90 tab 07/28/20 [Rx Last Taken Unknown] amiodarone 200 mg tablet 100 mg PO QODAY #45 tab 09/08/20 [Rx Last Taken Unknown] Allergy/AdvReac Type Severity Reaction Status Date / Time ipratropium AdvReac Mild Hives Verified 06/08/21 14:07 Family History Sister Breast cancer Surgical History H/O adenoidectomy H/O arthroscopy of right knee H/O colonoscopy History of ankle surgery History of carpal tunnel release History of tonsillectomy History of total left hip replacement Right wrist fusion S/P TURP Social History Smoking Status: Never smoker alcohol intake: current alcohol intake frequency: 0-2 drinks per day Alcohol type: beer details: occasional substance use type: does not use caffeine: Yes Type: coffee Number of servings: 1 ROS ROS ED Constitutional Constitutional ED: Denies chills, fever(s) or sweats Eyes Eyes: Denies blurry vision or change in vision ENT ENT ED: Denies ear pain or sore throat Cardiovascular Cardiovascular: Denies chest pain, palpitations or racing heartbeat Respiratory/Chest Respiratory/Chest: Denies cough, dyspnea or sputum Gastrointestinal Gastrointestinal: Denies abdominal pain, constipation, diarrhea, nausea or vomiting Genitourinary Genitourinary ED: Denies dysuria, hematuria or urinary frequency Musculoskeletal Musculoskeletal: Reports other Details: Left lateral calf pain ; Denies arthralgias, myalgias or neck pain Integumentary Denies abscess, Abrasions or rash Neurologic Neurologic: Denies headache(s), paresthesias or weakness Psychiatric Psychiatric: Denies anxiety, depression, suicidal ideation or suicidal thoughts Endocrine Endocrinology: Denies polydipsia or polyuria EXAM Physical Exam Const Vital Signs: 06/08/21 14:05 Temperature 97.1 F L Temperature Source Temporal Pulse Rate 75 Respiratory Rate 14 Blood Pressure 127/77 H Blood Pressure Mean 93 Pulse Ox 97 Oxygen Delivery Method Room Air Positive well nourished General Appearance ED: NAD HEENT normocephalic and atraumatic Resp normal respiratory effort Cardio regular rate and regular rhythm Extremity Extremity Narrative: Tenderness palpation left lateral calf. No ecchymosis or rash. No cords palpated. Compartments are soft. Left DP/PT +2/4. There is cap refill to all 5 toes. Lower extremities pink and warm. Neuro oriented x3 Sensorium / Orientation: alert Psych mental status grossly normal Skin Lesions: no lesions Rashes: no rashes MDM MDM MDM Narrative Medical decision making narrative: Obtained DVT study of the left lower extremity and there is no DVT or other acute findings. Patient counseled on this. We will treat this as a muscle strain. He is counseled to use ice and stretching. He cannot compression if he thinks this helps. Patient is stable for discharge at this time. Impression: 1. Calf strain Radiography Diagnostic Testing: Clinical Impression(s) from Imaging Studies Venous Doppler Study 06/08/21 15:08 Interpretation Summary There is no evidence of left lower extremity deep vein thrombosis. Left great saphenous vein appears patent and compressible segmentally. Abbreviated covid 19 protocol Ordering Physician: Isaak Polanco Performed By: Julian Jackson RVT Discharge Plan Triage Chief Complaint: Lower Extremity Injury ED Provider: Isaak Polanco Dx/Rx/DC Orders Instructions: ED Muscle Strain, Extremity Prescriptions: No Action cyanocobalamin (vitamin B-12) 1,000 mcg capsule 2,000 mcg PO DAILY RF: 0 multivitamin [Daily Multi-Vitamin] Tablet 1 tab PO DAILY RF: 0 cholecalciferol (vitamin D3) 1,000 UNIT capsule 1,000 unit PO DAILY RF: 0 Xarelto 20 mg tablet See Rx Instructions .ROUTE .COMPLEX Qty: 90 RF: 3 amiodarone 200 mg tablet 100 mg PO QODAY Qty: 45 RF: 3 Primary Care Provider: Orlando Galvan Referrals: Orlando Galvan MD [Primary Care Provider] - Disposition Disposition: Home, Self Care Discharge Date/Time: 06/08/21 15:47
== END 2021-06-08 15:47 | disposition home or self-care (01) ==
PROVIDERS: Emergency Provider Student in an Organized Health Care Education/Training Program; PCP Family Medicine; Visit Provider Student in an Organized Health Care Education/Training Program
DX: S86.112A Strain of other muscle(s) and tendon(s) of posterior muscle group at lower leg level, left leg, initial encounter (principal); I48.0 Paroxysmal atrial fibrillation; X58.XXXA Exposure to other specified factors, initial encounter; M19.90 Unspecified osteoarthritis, unspecified site; E66.9 Obesity, unspecified; Z68.28 Body mass index [BMI] 28.0-28.9, adult; Z79.01 Long term (current) use of anticoagulants; Z79.899 Other long term (current) drug therapy
CPT/HCPCS: 93971; 99282

== ENCOUNTER → 2022-01-18 | Outpatient (CLI) | payer MEDICARE, SELFPAY | END | disposition home or self-care (01) | PROVIDERS: PCP Family Medicine; Referring Provider Nurse Practitioner Gerontology; Visit Provider Nurse Practitioner Gerontology | DX: I48.0 Paroxysmal atrial fibrillation (principal); R00.1 Bradycardia, unspecified; Z79.899 Other long term (current) drug therapy | CPT/HCPCS: 93225; 93226 ==

== ENCOUNTER → 2022-02-15 | Outpatient (CLI) | payer MEDICARE, SELFPAY ==
[2022-02-15 12:48] LABS: Anion Gap 3 (5-15); BUN 22 mg/dL (7-18); BUN/Creat Ratio 20.4 RATIO (10-20); Calcium,Total 8.9 mg/dL (8.5-10.1); Chloride 108 mmol/L (98-107); Creatinine, Serum 1.08 mg/dL (0.70-1.30); EST Glomerular Filtration Rate 69 mL/min (>60); Est Glom Filt Rate - Afr Amer 83 mL/min (>60); Glucose 89 mg/dL (74-106); Potassium 4.1 mmol/L (3.5-5.1); Sodium Level 141 mmol/L (136-145)
[2022-02-15 12:49] LABS: BNP,B-Type NATRIURETIC PEPTIDE 250.3 pg/mL (0-100)
== END | disposition home or self-care (01) ==
LOC: LAB 11:24
PROVIDERS: PCP Family Medicine; Referring Provider Nurse Practitioner Gerontology; Visit Provider Nurse Practitioner Gerontology
DX: R06.02 Shortness of breath (principal); I48.0 Paroxysmal atrial fibrillation
CPT/HCPCS: 36415; 80048; 83880

== ENCOUNTER → 2022-02-22 | Outpatient (CLI) | payer MEDICARE, SELFPAY ==
--- NOTE | 2022-02-22 09:47 | ECHOD_ITS ---
Reason For Study: ATRIAL FIB-FLUTTER Procedure This was a 2D Doppler, Color Flow transthoracic echocardiogram. Exam performed in department. Left Ventricle Normal LV size. Left ventricular systolic function is normal. The estimated ejection fraction is 55 %. Unable to assess diastolic dysfunction. No regional wall motion abnormalities noted. Right Ventricle Moderately dilated right ventricle. Moderate global right ventricular systolic dysfunction. Atria The left atrium is mildly enlarged. The right atrium is severely enlarged. No doppler evidence for ASD. Mitral Valve There is no mitral annular calcification. Normal mitral valve. Equivocal mitral valve prolapse. Mild (1+) mitral valve insufficiency. Tricuspid Valve Poor coaptation of the tricuspid valve apparatus. Moderate (2+) tricuspid valve insufficiency. Right ventricular systolic pressure estimated to be 39 mmHg. Aortic Valve Trisinus/trileaflet aortic valve. Mild diffuse aortic valve thickening. Moderate focal aortic valve calcification. Aortic sclerosis, no stenosis. Pulmonic Valve The pulmonic valve is not well visualized. Mild-Moderate (1-2+) pulmonic valve insufficiency. Great Vessels Borderline enlarged aortic root. Pericardium/Pleural No pericardial effusion. MMode/2D Measurements & Calculations LVIDd: 5.2 cm IVSd: 0.85 cm Ao root diam: 3.8 cm LVIDs: 3.7 cm LVPWd: 0.89 cm RVDd: 4.9 cm FS: 28.6 % LAV(MOD-bp): 63.5 ml LVAd ap4: 29.3 cm2 SV(MOD-sp4): 51.1 ml LAV(MOD-bp) Indexed: 28.4 ml/m2 LVLd ap4: 7.5 cm LAV(MOD-sp2): 65.2 ml EDV(MOD-sp4): 97.2 ml LAV(MOD-sp4): 63.3 ml EDV(sp4-el): 97.3 ml LVAs ap4: 18.9 cm2 LVLs ap4: 6.6 cm ESV(MOD-sp4): 46.1 ml ESV(sp4-el): 46.1 ml EF(MOD-sp4): 52.6 % EF(sp4-el): 52.6 % SV(sp4-el): 51.2 ml LA A4 area: 22.1 cm2 LA dimension(2D): 4.6 cm RA A4 area: 35.4 cm2 Doppler Measurements & Calculations MV E max serafin: 90.0 cm/sec Ao V2 max: 94.4 cm/sec AI max serafin: 424.2 cm/sec Ao max P.6 mmHg AI max P.0 mmHg AI dec slope: 169.5 cm/sec2 AI P1/2t: 732.9 msec LV V1 max: 67.7 cm/sec PA V2 max: 90.4 cm/sec TR max serafin: 276.8 cm/sec LV V1 max P.8 mmHg TR max P.6 mmHg ECHO/Echo Complete Interpretation Summary Left ventricular systolic function is normal. The estimated ejection fraction is 55 %. Moderately dilated right ventricle. Moderate global right ventricular systolic dysfunction. The left atrium is mildly enlarged. The right atrium is severely enlarged. Equivocal mitral valve prolapse. Mild (1+) mitral valve insufficiency. Poor coaptation of the tricuspid valve apparatus. Moderate (2+) tricuspid valve insufficiency. Aortic sclerosis, no stenosis. Mild-Moderate (1-2+) pulmonic valve insufficiency. Borderline enlarged aortic root. Right ventricular systolic pressure estimated to be 39 mmHg. Unable to assess diastolic dysfunction. Ordering Physician: Nilsa Perez Referring Physician: SUMA ANTONIO Performed By: Shanelle Thomas RDCS
[2022-02-22 13:29] LABS: Anion Gap 3 (5-15); BUN 22 mg/dL (7-18); BUN/Creat Ratio 20.4 RATIO (10-20); Calcium,Total 8.9 mg/dL (8.5-10.1); Chloride 105 mmol/L (98-107); Creatinine, Serum 1.08 mg/dL (0.70-1.30); EST Glomerular Filtration Rate 69 mL/min (>60); Est Glom Filt Rate - Afr Amer 83 mL/min (>60); Glucose 82 mg/dL (74-106); Potassium 4.1 mmol/L (3.5-5.1); Sodium Level 139 mmol/L (136-145)
== END | disposition home or self-care (01) ==
PROVIDERS: PCP Family Medicine; Visit Provider Nurse Practitioner Gerontology
DX: I48.0 Paroxysmal atrial fibrillation (principal); R06.02 Shortness of breath; R79.89 Other specified abnormal findings of blood chemistry
CPT/HCPCS: 36415; 80048; 93306

== ENCOUNTER → 2022-04-17 | Outpatient (CLI) | payer MEDICARE, SELFPAY ==
--- NOTE | 2022-04-17 16:22 | RAD_ITS ---
STUDY: X-RAY CHEST REASON FOR EXAM: Male, 86 years old. Short of breath. TECHNIQUE: PA and lateral COMPARISON: 11/07/2020 CXR FINDINGS: No evidence of pneumonia, pulmonary edema, pneumothorax or pleural effusion. Mildly lucent and hyperinflated lungs. Cardiac silhouette, hilar and mediastinal contours with no acute findings. Atherosclerosis and mild tortuosity of the thoracic aorta. Degenerative osseous changes with no acute osseous abnormality. RAD/Chest PA and Lateral IMPRESSION: No acute findings. 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 Electronically Signed: Kilo Gleason MD at 1:30 EST Reading Location ID and State: [facility] / [place] Tel , Service support ,
[2022-04-17 16:48] LABS: Absolute Lymphocyte Count 1.37 X10^3/uL (0.83-4.51); Absolute Neutrophil Count 5.1 X10^3/uL (2.0-7.7); Basophil# 0.06 X10^3/uL; Basophil% 0.8 % (0-1); Eosinophil# 0.29 X10^3/uL; Eosinophils% 3.7 % (0-5); Hemoglobin 14.2 g/dL (13.0-16.5); Lymphocyte # 1.37 X10^3/ul (0.83-4.51); Lymphocyte % 17.5 % (19-41); Mean Corpuscular Hgb 31.6 pg (27.0-32.0); Mean Corpuscular Volume 95.6 fL (80-94); Mean Platelet Vol. 10.5 fl (6.2-12.0); Monocyte# 1.04 X10^3/uL; Monocyte% 13.3 % (0-10); NRBC Flagged by Analyzer 0 % (0-5); Neutrophil # 5.05 X10^3/uL (2.7-7.7); Neutrophil % 64.4 % (47-70); Platelet Count 219 K/mm3 (150-450); RBC Distribution Width CV 12.7 % (11.6-14.6); RBC Distribution Width SD 44.7 fl (35.1-43.9); White Blood Count 7.8 K/mm3 (4.4-11.0)
[2022-04-17 17:09] LABS: Anion Gap 4 (5-15); BNP,B-Type NATRIURETIC PEPTIDE 156.6 pg/mL (0-100); BUN 25 mg/dL (7-18); BUN/Creat Ratio 25.1 RATIO (10-20); Chloride 105 mmol/L (98-107); EST Glomerular Filtration Rate 75 mL/min (>60); Est Glom Filt Rate - Afr Amer 91 mL/min (>60); Glucose 84 mg/dL (74-106); Potassium 4.1 mmol/L (3.5-5.1); Sodium Level 139 mmol/L (136-145)
== END | disposition home or self-care (01) ==
LOC: RAD 16:13
PROVIDERS: PCP Family Medicine; Referring Provider Nurse Practitioner Gerontology; Visit Provider Nurse Practitioner Gerontology
DX: R06.02 Shortness of breath (principal); I48.19 Other persistent atrial fibrillation; R60.0 Localized edema; S91.302A Unspecified open wound, left foot, initial encounter; X58.XXXA Exposure to other specified factors, initial encounter
CPT/HCPCS: 36415; 71046; 80048; 83880; 85025

== ENCOUNTER → 2022-05-24 | Outpatient (CLI) | payer MEDICARE, SELFPAY ==
[2022-05-24 12:11] LABS: Absolute Lymphocyte Count 1.19 X10^3/uL (0.83-4.51); Absolute Neutrophil Count 4.6 X10^3/uL (2.0-7.7); Basophil% 1.4 % (0-1); Eosinophil# 0.24 X10^3/uL; Eosinophils% 3.4 % (0-5); Hematocrit 41.7 % (40-54); Hemoglobin 13.7 g/dL (13.0-16.5); Lymphocyte # 1.19 X10^3/ul (0.83-4.51); Lymphocyte % 16.9 % (19-41); Mean Corp Hgb Conc 32.9 g/dL (32-36); Mean Corpuscular Hgb 32.1 pg (27.0-32.0); Mean Corpuscular Volume 97.7 fL (80-94); Mean Platelet Vol. 10.9 fl (6.2-12.0); Monocyte# 0.92 X10^3/uL; Monocyte% 13.1 % (0-10); NRBC Flagged by Analyzer 0 % (0-5); Neutrophil # 4.56 X10^3/uL (2.7-7.7); Neutrophil % 64.8 % (47-70); Platelet Count 179 K/mm3 (150-450); RBC Distribution Width CV 13.2 % (11.6-14.6); RBC Distribution Width SD 47.1 fl (35.1-43.9); Red Blood Count 4.27 M/mm3 (4.6-6.2)
[2022-05-24 12:30] LABS: BNP,B-Type NATRIURETIC PEPTIDE 145.5 pg/mL (0-100)
[2022-05-24 12:31] LABS: Anion Gap 6 (5-15); BUN 22 mg/dL (7-18); Calcium,Total 8.9 mg/dL (8.5-10.1); Chloride 106 mmol/L (98-107); Creatinine, Serum 1.22 mg/dL (0.70-1.30); EST Glomerular Filtration Rate 60 mL/min (>60); Est Glom Filt Rate - Afr Amer 72 mL/min (>60); Glucose 72 mg/dL (74-106); Potassium 3.9 mmol/L (3.5-5.1); Sodium Level 139 mmol/L (136-145)
== END | disposition home or self-care (01) ==
PROVIDERS: PCP Family Medicine; Referring Provider Nurse Practitioner Gerontology; Visit Provider Nurse Practitioner Gerontology
DX: R06.02 Shortness of breath (principal); R53.83 Other fatigue
CPT/HCPCS: 36415; 80048; 83880; 85025

== ENCOUNTER → 2022-06-01 | Outpatient (CLI) | payer MEDICARE, SELFPAY ==
[2022-06-01 09:55] LABS: Anion Gap 6 (5-15); BUN 25 mg/dL (7-18); BUN/Creat Ratio 22.9 RATIO (10-20); Calcium,Total 8.9 mg/dL (8.5-10.1); Chloride 106 mmol/L (98-107); Creatinine, Serum 1.09 mg/dL (0.70-1.30); EST Glomerular Filtration Rate 68 mL/min (>60); Est Glom Filt Rate - Afr Amer 82 mL/min (>60); Glucose 98 mg/dL (74-106); Potassium 3.6 mmol/L (3.5-5.1); Sodium Level 141 mmol/L (136-145)
== END | disposition home or self-care (01) ==
LOC: LAB 09:06
PROVIDERS: PCP Family Medicine; Referring Provider Nurse Practitioner Gerontology; Visit Provider Nurse Practitioner Gerontology
DX: R60.0 Localized edema (principal)
CPT/HCPCS: 36415; 80048

== ENCOUNTER → 2023-05-09 | Outpatient (CLI) | payer MEDICARE, SELFPAY ==
[2023-05-09 10:39] LABS: Hemoglobin 13.5 g/dL (13.0-16.5); Mean Corp Hgb Conc 32.9 g/dL (32-36); Mean Corpuscular Hgb 31.9 pg (27.0-32.0); Mean Corpuscular Volume 96.9 fL (80-94); Mean Platelet Vol. 11.9 fl (6.2-12.0); Platelet Count 153 K/mm3 (150-450); RBC Distribution Width CV 13.2 % (11.6-14.6); RBC Distribution Width SD 46.9 fl (35.1-43.9); Red Blood Count 4.23 M/mm3 (4.6-6.2); White Blood Count 5.3 K/mm3 (4.4-11.0)
[2023-05-09 11:28] LABS: ALB/GLOB Ratio 1.2 RATIO (0.9-2.4); AST(SGOT) 37 U/L (15-37); Alanine Aminotransfer ALT/SGPT 36 U/L (16-61); Albumin, Serum 3.7 g/dL (3.2-5.0); Alkaline Phosphatase 67 U/L (45-117); Anion Gap 3 (5-15); BUN 22 mg/dL (7-18); BUN/Creat Ratio 21.6 RATIO (10-20); Calcium,Total 8.7 mg/dL (8.5-10.1); Chloride 109 mmol/L (98-107); Creatinine, Serum 1.02 mg/dL (0.70-1.30); EST Glomerular Filtration Rate 73 mL/min (>60); Est Glom Filt Rate - Afr Amer 89 mL/min (>60); Globulin 3.2 g/dL (2.2-4.2); Glucose 96 mg/dL (74-106); Potassium 4.1 mmol/L (3.5-5.1); Protein, Total 6.9 g/dL (6.4-8.2); Sodium Level 139 mmol/L (136-145)
== END | disposition home or self-care (01) ==
LOC: LAB 09:45
PROVIDERS: PCP Family Medicine; Referring Provider Internal Medicine Cardiovascular Disease; Visit Provider Internal Medicine Cardiovascular Disease
DX: R53.83 Other fatigue (principal); I48.0 Paroxysmal atrial fibrillation
CPT/HCPCS: 36415; 80053; 84443; 85027

== ENCOUNTER → 2023-10-15 | Outpatient (CLI) | payer MEDICARE, SELFPAY ==
[2023-10-15 12:27] LABS: Hematocrit 41.1 % (40-54); Hemoglobin 13.4 g/dL (13.0-16.5); Mean Corp Hgb Conc 32.6 g/dL (32-36); Mean Corpuscular Volume 98.1 fL (80-94); Mean Platelet Vol. 11.9 fl (6.2-12.0); Platelet Count 126 K/mm3 (150-450); RBC Distribution Width CV 13.2 % (11.6-14.6); Red Blood Count 4.19 M/mm3 (4.6-6.2); White Blood Count 5.1 K/mm3 (4.4-11.0)
[2023-10-15 12:47] LABS: Anion Gap 4 (5-15); BUN 22 mg/dL (7-18); BUN/Creat Ratio 20.4 RATIO (10-20); CRP < 2.90 mg/L (0.0-3.0); Calcium,Total 9.1 mg/dL (8.5-10.1); Chloride 104 mmol/L (98-107); Creatinine, Serum 1.08 mg/dL (0.70-1.30); EST Glomerular Filtration Rate 69 mL/min (>60); Est Glom Filt Rate - Afr Amer 83 mL/min (>60); Glucose 64 mg/dL (74-106); Potassium 4.3 mmol/L (3.5-5.1); Sodium Level 139 mmol/L (136-145)
== END | disposition home or self-care (01) ==
LOC: LAB 11:32
PROVIDERS: PCP Family Medicine; Referring Provider Internal Medicine Cardiovascular Disease; Visit Provider Internal Medicine Cardiovascular Disease
DX: I48.19 Other persistent atrial fibrillation (principal); I48.0 Paroxysmal atrial fibrillation
CPT/HCPCS: 36415; 80048; 85027; 86140

== ENCOUNTER → 2023-11-14 | Outpatient (CLI) | payer MEDICARE, SELFPAY ==
--- NOTE | 2023-11-14 12:58 | MRI_ITS ---
STUDY: MRI BRAIN WITH AND WITHOUT CONTRAST REASON FOR EXAM: Male, 87 years old. OPTIC ATROPHY LT EYE TECHNIQUE: Standardized multiplanar fat and water weighted pulse sequences were obtained. IV 20 Clariscan was administered for the contrast portion of the examination. COMPARISON: None. FINDINGS: There is mild cerebral atrophy with widening of the extra-axial spaces and ventricular dilatation. There are a limited number of small white matter hyperintensities, distributed throughout the deep white matter tracts of the cerebral hemispheres, consistent with mild chronic white matter ischemic changes. There is no evidence for recent intracranial ischemia or other cause of cytotoxic edema on diffusion weighted imaging (DWI). Normal T2* images of the brain without demonstrated susceptibility artifact. There is no demonstrated hemosiderin stain. Normal bilateral basal ganglia. Normal thalami. There is no extra-axial fluid accumulation. Normal flow voids within the major intracranial circulation suggesting patency by spin echo criteria. Normal venous enhancement. There is no enhancing intra-axial or extra-axial abnormality. Normal sella turcica, pituitary gland, infundibular stalk, optic chiasm and hypothalamus. Normal tectal plate and pineal gland. Normal midbrain, chris and medulla. Normal cerebellum. Normal basal cisterns. Normal bilateral temporal bones. Normal bilateral internal auditory canals. No demonstrated orbital abnormality, within the constraints of a routine brain study. Normal visualized paranasal sinuses. Normal calvarium and skull base. Normal visualized soft tissue structures. Normal visualized upper cervical spine. MRI/Brain W/WO Contrast IMPRESSION: Involutional changes of the brain, as described above. Electronically Signed: Pop Kang MD at 11:41 EDT ,
== END | disposition home or self-care (01) ==
PROVIDERS: PCP Family Medicine; Referring Provider Ophthalmology; Visit Provider Ophthalmology
DX: H47.212 Primary optic atrophy, left eye (principal)
CPT/HCPCS: 70553; A9575

== ENCOUNTER → 2024-09-17 | Outpatient (CLI) | payer MEDICARE, SELFPAY | END | disposition home or self-care (01) | LOC: PSN 11:02 | PROVIDERS: PCP Family Medicine; Referring Provider Nurse Practitioner Gerontology; Visit Provider Nurse Practitioner Gerontology | DX: R00.1 Bradycardia, unspecified (principal); I48.91 Unspecified atrial fibrillation | CPT/HCPCS: 93225; 93226 ==